=== PATIENT | male | born 1940 | race Caucasian/White ===

== ENCOUNTER 2019-03-28 08:20 | Day surgery (SDC) | payer MEDICARE, BC, SELFPAY ==
--- NOTE | 2019-03-28 07:41 | PM.HP.1 ---
History of Present Illness Date Patient Seen: 03/28/19 Time Patient Seen: 07:42 Chief complaint: [id number] Colonoscopy Narrative: patient is here for a screening colonosopy. His head polyps over time he has had a colonoscopy. Last exam was about 4 years ago. Patient History Medical History Arthritis (Chronic) Diverticular disease (Chronic) Hearing loss (Chronic) Hyperlipidemia (Chronic) Colon polyps (Resolved 2000) History of SCC (squamous cell carcinoma) of skin (Resolved) History of basal cell carcinoma (BCC) (Resolved) Vertigo (Resolved 2006) Surgical History History of basal cell carcinoma (BCC) excision (Resolved) History of colonoscopy with polypectomy (Resolved 10/24/13) History of colonoscopy with polypectomy (Resolved 05/24/07) History of colonoscopy with polypectomy (Resolved 01/24/04) History of squamous cell carcinoma excision (Resolved) Status post amputation of extremity (Resolved) Status post rotator cuff repair (Resolved 2005) Family History (Updated 11/04/18 @ 10:29 by Anne Ornelas) Mother Diabetes mellitus Hypertension Father Heart failure Heart disease Social History household members: spouse Smoking Status: Never smoker alcohol intake: current substance use type: does not use Family & Social History Family History Mother Diabetes mellitus Hypertension Father Heart failure Heart disease Tobacco & Substance use: Smoking Status Never smoker alcohol intake current Meds Home Medications Medication Instructions Recorded Confirmed Type ASPIRIN (Aspir-Low) 162 mg PO QDAY #0 12/22/11 03/28/19 History meclizine 25 mg PO Q6HP PRN #30 tab 01/05/17 03/28/19 Rx simvastatin 20 mg tablet 20 mg PO QPM #90 tab 09/27/18 03/28/19 Rx Allergies Allergy/AdvReac Type Severity Reaction Status Date / Time DUST Allergy Mild Uncoded 03/02/18 12:20 Review of Systems Review of Systems All systems reviewed & are unremarkable except as noted in HPI and below Exam Narrative Exam Narrative: Pleasant cooperative patient no apparent distress. Lungs are clear to auscultation. No rales or rhonchi. Heart regular rate and rhythm no murmur gallop. Abdomen is soft nontender without mass. No obvious hernias. Patient is alert and oriented x3. Assessment & Plan Assessment & Plan narrative: The patient for a screening colonoscopy. I have discussed the procedure with them. Risks of bleeding, perforation which would necessitate major operation, failure to find remove all lesions, the potential tattoo were all discussed. All questions were answered. They wished to proceed.
[2019-03-28 08:41] VITALS: BP 127/75; PULSE 75; RESP 16; TEMP 37; O2SAT 97; BMI 25.9
[2019-03-28] MEDS: SODIUM CHLORIDE 0.9% 1,000 ML 200 ML IV ×2 (09:00→10:56)
--- NOTE | 2019-03-28 10:12 | PM.PREOP ---
Pre-operative Note Interval Note History & Physical reviewed/Exam performed by Physician: Yes Changes to H&P: No ASA Class (for procedural sedation): I
[2019-03-28] MEDS: MIDAZOLAM 5 MG/5 ML VIAL IV (10:21)
[2019-03-28] MEDS: fentaNYL 250 MCG/5 ML INJ IV (10:22)
--- NOTE | 2019-03-28 11:10 | PM.OP.ENDO ---
Operative Date/Time/Diagnoses Date of procedure: 03/28/19 Time of procedure: 11:11 Pre-op diagnosis: Screening exam. Patient has a history of polyps. Last exam 4 years ago. Post-op diagnosis: same (Extensive diverticulosis of the left and right colon. Stricture in the sigmoid at about 25 cm from the anal verge.) Procedure & Clinicians Study performed: Colonoscopy Same procedure as scheduled: Yes Indications: Screening history of polyps Surgeon: Hill Doss Procedure Notes SCOAP/Timeout: Perform Procedure in detail: The patient was placed in the left lateral decubitus position and underwent IV sedation directed by the surgeon consisting of fentanyl and Versed. Digital exam was remarkable for a in enlarged prostate. No nodules were felt. The scope was inserted and advanced through the rectum into the sigmoid, descending, transverse, and ascending colon. Transition through the sigmoid colon was quite difficult due to extensive diverticulosis and some stricture. The patient had to be repositioned and pressure applied in order to make our way through this area.. The cecum was reached identified by the ileocecal valve and the appendiceal opening. The scope was gradually brought out. No Polyps were found. The scope ultimately was retroflexed in the rectum. The appearance was[normal]. The scope was removed and the patient tolerated the procedure well. prep was very good Scope withdrawal time: 19 Sedation minutes: 55 Findings: diverticulosis (Extensive) and other findings (Enlarged prostate without dominant mass) Specimen(s): none sent Complications: none Recommendations: Colonscopy in 5 years (If it good health)
[2019-03-28 11:15] VITALS: BP 98/59; PULSE 96; RESP 11; TEMP 37.1; O2SAT 93
[2019-03-28 11:20] VITALS: BP 103/60; PULSE 99; RESP 15; O2SAT 95
[2019-03-28 11:43] VITALS: BP 103/66; PULSE 86; RESP 16; TEMP 36.5; O2SAT 93
== END 2019-03-28 11:55 | disposition home or self-care (01) ==
PROVIDERS: PCP Student in an Organized Health Care Education/Training Program; Visit Provider Specialist
PROC: 0DJD8ZZ Inspection of Lower Intestinal Tract, Via Natural or Artificial Opening Endoscopic (ICD-10-PCS; CPT 45378; principal; 2019-03-28 09:45)
DX: Z86.010 Personal history of colon polyps (principal); K57.30 Diverticulosis of large intestine without perforation or abscess without bleeding; N40.0 Benign prostatic hyperplasia without lower urinary tract symptoms
CPT/HCPCS: G0105; 99152; 99153; J2250; J3010

== ENCOUNTER 2019-04-17 16:21 | Emergency (ER) | payer MEDICARE, BC, SELFPAY ==
[2019-04-17 16:29] VITALS: BP 127/76; PULSE 69; RESP 16; TEMP 35; O2SAT 94; BMI 25.8
--- NOTE | 2019-04-17 16:47 | DI.RAD.S_ITS ---
PROCEDURE: XR HAND RT MIN 3V INDICATIONS: LACERATION TO PALM TECHNIQUE: 3 views of the hand(s) acquired. COMPARISON: None. FINDINGS: Bones: No fractures or dislocations. Carpal bones are normally aligned. No suspicious bony lesions. Advanced degenerative changes are seen, particularly involving the 1st carpometacarpal joint, and also involving the distal interphalangeal joints. Soft tissues: No suspicious soft tissue calcifications. No radiopaque foreign bodies are seen. IMPRESSION: No radiopaque foreign bodies or acute bony injury can be seen. 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 If there is strong suspicion for developing osteomyelitis, please consider a dedicated MRI with contrast for further evaluation (assuming that there is no contraindication to MRI). Dictated by: Kwabena Love M.D. on 04/17/2019 at 16:20 Approved by: Kwabena Love M.D. on 04/17/2019 at 16:21
[2019-04-17] MEDS: TET,DIPH,PERTUSS(ACELL),VAC/PF 0.5 ML SYRINGE IM (17:01)
--- NOTE | 2019-04-17 18:41 | ED_ITS ---
HPI - Wound/Laceration <HORTENCIA Garcia - Last Filed: 04/17/19 18:44> General Chief Complaint: Wound/Laceration Stated Complaint: cut right hand Time Seen by Provider: 04/17/19 16:40 Source: patient and family Mode of arrival: ambulatory Limitations: no limitations History of Present Illness HPI narrative: The patient is a 78-year-old male with history of hypercholesterolemia who presents with his for chief complaint of a laceration. He states he cut himself on a wiper blender blade and has a cut on his right hand at the base of his thumb.. He is unsure foreign body. He does not know when his last tetanus was. He states he is having a hard time controlling the bleeding. He takes aspirin. The laceration happened at approximately 4:10 p.m.. Related Data Home Medications Medication Instructions Recorded Confirmed ASPIRIN (Aspir-Low) 162 mg PO QDAY #0 12/22/11 03/28/19 Previous Rx's Medication Instructions Recorded meclizine 25 mg PO Q6HP PRN #30 tab 01/05/17 simvastatin 20 mg tablet 20 mg PO QPM #90 tab 09/27/18 Allergies Allergy/AdvReac Type Severity Reaction Status Date / Time No Known Drug Allergies Allergy Verified 04/17/19 16:29 Review of Systems <EDDIE Garcia - Last Filed: 04/17/19 18:44> Review of Systems GENERAL: Denies chills, fatigue, malaise, fever, sweats. HEENT: Denies sinus pain, ear pain, sore throat, difficulty swallowing, dizziness. RESPIRATORY: Denies dyspnea, cough, wheezing, hemoptysis, sputum. CARDIOVASCULAR: Denies chest pain, palpitations, orthopnea, edema, GASTROINTESTINAL: Denies nausea, vomiting, abdominal pain, diarrhea, constipation, melena. : Denies dysuria, frequency, incontinence, hematuria, urinary retention. MUSCULOSKELETAL: denies weakness, joint pain, or bony pain SKIN: See HPI NEUROLOGIC: Denies weakness, headache, numbness, change in speech, confusion, seizures, incoordination. PSYCHIATRIC: No concerning psychosocial issues. 12 point review of systems is negative except for those stated above PFSH <EDDIE Garcia - Last Filed: 04/17/19 18:44> Medical History Arthritis (Chronic) Diverticular disease (Chronic) Hearing loss (Chronic) Hyperlipidemia (Chronic) Colon polyps (Resolved 2000) History of SCC (squamous cell carcinoma) of skin (Resolved) History of basal cell carcinoma (BCC) (Resolved) Vertigo (Resolved 2006) Surgical History History of basal cell carcinoma (BCC) excision (Resolved) History of colonoscopy with polypectomy (Resolved 10/24/13) History of colonoscopy with polypectomy (Resolved 05/24/07) History of colonoscopy with polypectomy (Resolved 01/24/04) History of squamous cell carcinoma excision (Resolved) Status post amputation of extremity (Resolved) Status post rotator cuff repair (Resolved 2005) Family History Mother Diabetes mellitus Hypertension Father Heart failure Heart disease Social History household members: spouse Smoking Status: Never smoker alcohol intake: current substance use type: does not use Family History Mother Diabetes mellitus Hypertension Father Heart failure Heart disease Social History household members: spouse Smoking Status: Never smoker alcohol intake: current substance use type: does not use Exam <HORTENCIA Garcia - Last Filed: 04/17/19 18:44> Narrative Exam Narrative: GENERAL: This is a well-nourished, well-developed patient, no acute distress. HEAD: Atraumatic. Normocephalic. No temporal or scalp tenderness. EYES: Pupils equal round and reactive. Extraocular motions intact. No scleral icterus. No injection or drainage. ENT: Nose without bleeding, purulent drainage or septal hematoma. Throat without erythema, tonsillar hypertrophy or exudate. Uvula midline. Airway patent. NECK: Trachea midline. No JVD or lymphadenopathy. Supple, nontender, no meningeal signs. CARDIOVASCULAR: Regular rate and rhythm RESPIRATORY: No cough. No increased respiratory effort. No accessory muscle use. EXTREMITIES: Patient is able to flex and extend right thumb against resistance. Capillary refill less than 2 seconds. NEURO: AOx3. SKin: 4 cm laceration noted at the base of right thumb. No obvious tendon or muscle involvement. No obvious foreign body. Through dermis. Laceration is jagged Initial Vital Signs Initial Vital Signs: Vital Signs Temperature 95 F L 04/17/19 16:29 Pulse Rate 69 04/17/19 16:29 Respiratory Rate 16 04/17/19 16:29 Blood Pressure 127/76 04/17/19 16:29 Pulse Oximetry 94 04/17/19 16:29 <Kaya Kwong DO - Last Filed: 04/17/19 19:39> Initial Vital Signs Initial Vital Signs: Vital Signs Temperature 95 F L 04/17/19 16:29 Pulse Rate 69 04/17/19 16:29 Respiratory Rate 16 04/17/19 16:29 Blood Pressure 127/76 04/17/19 16:29 Pulse Oximetry 94 04/17/19 16:29 Procedures <HORTENCIA Garcia - Last Filed: 04/17/19 18:44> Laceration Repair Laceration 1: Site: hand Side (If applicable): right Size (cm): 4 Description: irregular Depth: simple, single layer Local Anesthetic: lidocaine 1% Amount of anesthesia used (mL): 3 Pre-repair: wound explored, irrigated extensively and deep structures intact Skin layer closed with: nylon Size (cm): 4-0 Number of sutures: 6 Technique: simple, interrupted Course <HORTENCIA Garcia - Last Filed: 04/17/19 18:44> Orders Ordered: ED Orders 04/17/19 16:47 XR hand RT min 3V Stat Discontinued Medications Diphtheria/Tetanus/Acell Pertussis (Adacel) 0.5 ml IM .ONCE ONE Stop: 04/17/19 16:48 Last Admin: 04/17/19 17:01 Dose: 0.5 ml Vital Signs - 8 hr 04/17/19 16:29 Temperature 95 F L Pulse Rate 69 Respiratory Rate 16 Blood Pressure 127/76 Pulse Oximetry 94 <Kaya Kwong DO - Last Filed: 04/17/19 19:39> Orders Ordered: ED Orders 04/17/19 16:47 XR hand RT min 3V Stat Discontinued Medications Diphtheria/Tetanus/Acell Pertussis (Adacel) 0.5 ml IM .ONCE ONE Stop: 04/17/19 16:48 Last Admin: 04/17/19 17:01 Dose: 0.5 ml Vital Signs - 8 hr 04/17/19 16:29 Temperature 95 F L Pulse Rate 69 Respiratory Rate 16 Blood Pressure 127/76 Pulse Oximetry 94 MDM - Wound/Laceration <Kaya CONCEPCIÓN Gill-BC - Last Filed: 04/17/19 18:44> [facility] Narrative Medical decision making narrative: The patient is a 78-year-old male who presents with his for chief complaint of laceration. He has a negative x- ray. His tetanus was updated. He tolerated suture closure well. Discussed at length monitoring for signs and symptoms of infection including redness pus etc. Encouraged follow-up with PCP. Discussed at length follow up for suture removal in 7-10 days. No questions or concerns upon discharge. Patient states understanding of return precautions of acute concerns. Discharge Plan Departure Patient Disposition: Home Clinical Impression: Laceration Discharge Date/Time: 04/17/19 18:55 Interventions: ED Discharge Assessment Last Done: 04/17/19 18:55 Instructions: DI for Laceration Repair, DI for Suture Removal Activity Restrictions/Additional Instructions: Please follow up for suture removal in 7-10 days Please monitor for signs of infection including redness pus etc Please follow-up if you notice any signs of infection. Come back to the emergency department for acute concerns. Please enjoy your son's a bachelor libertarian and wedding Prescriptions: No Action simvastatin 20 mg tablet 20 mg PO QPM Qty: 90 RF: 3 ASPIRIN (Aspir-Low) 162 mg PO QDAY Qty: 0 RF: 0 meclizine 25 MG tablet 25 mg PO Q6HP PRNQty: 30 RF: 1 Referrals: Tomi Pathak MD [Primary Care Provider] - <Kaya Kwong DO - Last Filed: 04/17/19 19:39> Cosign ED Attending Cosignature Attestation: I was immediately available in the department for consultation. This documentation has been reviewed and I agree with assessment and plan. Supervised by Kaya Kwong DO
== END 2019-04-17 18:55 | disposition home or self-care (01) ==
PROVIDERS: Emergency Provider Nurse Practitioner Family; PCP Student in an Organized Health Care Education/Training Program
DX: S61.411A Laceration without foreign body of right hand, initial encounter (principal); Z23 Encounter for immunization
CPT/HCPCS: 12002; 73130; 90471; 99283; 90715

== ENCOUNTER 2020-01-02 08:11 | Inpatient (IN) | payer MEDICARE, BC, SELFPAY ==
[2020-01-02] VITALS (7 sets, daily range): BP systolic 113–135; BP diastolic 66–76; PULSE 64–84; RESP 16–28; TEMP 36.6–37.5; O2SAT 94–97; BMI 26.8
--- NOTE | 2020-01-02 08:12 | DI.CT.S_ITS ---
PROCEDURE: CT STROKE COMPARISON: None. INDICATIONS: code stroke TECHNIQUE: Noncontrast 4.5 mm thick angled axial sections acquired from the foramen magnum to the vertex, with coronal and sagittal reformats. For radiation dose reduction, the following was used: automated exposure control, adjustment of mA and/or kV according to patient size. FINDINGS: Image quality: Excellent. CSF spaces: Basal cisterns are patent. No extra-axial fluid collections. The ventricles are symmetric in size and shape. Brain: No intracranial bleeds or masses. There is cerebral volume loss for age, with resultant ventricular and sulcal prominence. There are periventricular and deep white matter chronic small vessel ischemic changes. There is minimal intracranial internal carotid artery atherosclerosis. Skull and face: Calvarium and visualized facial bones appear intact, without suspicious lesions. Sinuses: Visualized sinuses and mastoids are clear. IMPRESSION: CT head without acute intracranial abnormalities. Age-related senescent changes and sequela of chronic small vessel ischemic disease. Findings were discussed with Dr. Desai of the emergency department staff at 0827 hrs. Dictated by: Pramod Carvajal M.D. on 01/02/2020 at 8:35 Approved by: Pramod Carvajal M.D. on 01/02/2020 at 8:36
[2020-01-02 08:30] LABS: Add Manual Diff / Slide Review NO; Basophils Absolute Auto 100 /uL (0-100); Basophils Percent Auto 0.8 % (0-2); Eosinophils Absolute Auto 300 /uL (0-450); Eosinophils Percent Auto 2.9 % (2-4); Hematocrit 47.9 % (41-53); Hemoglobin 16.1 g/dL (13.5-17.5); Lymphocytes Absolute Auto 3600 /uL (1100-4500); Lymphocytes Percent Auto 39.2 % (25-40); Mean Corpuscular HGB Conc 33.6 % (30-36); Mean Corpuscular Hemoglobin 31.1 PG (26-34); Mean Corpuscular Volume 92.8 fL (80-100); Monocytes Absolute Auto 700 /uL (0-900); Monocytes Percent Auto 7.5 % (3-14); Neutrophils Absolute Auto 4500 /uL (1500-7000); Neutrophils Percent Auto 49.6 % (50-75); Platelet Count 217 X10^3/uL (150-400); Red Blood Cell Count 5.16 X10^6/uL (4.5-5.9); Red Cell Distribution Width 14.1 % (11.6-14.8); White Blood Cell Count 9.2 X10^3/uL (4.5-11.0)
--- NOTE | 2020-01-02 08:38 | ED.NEUROSD ---
HPI - Neuro Symptoms/Deficit General Chief Complaint: Neuro Symptoms/Deficit Stated Complaint: Stroke Time Seen by Provider: 01/02/20 08:12 Source: patient and EMS Mode of arrival: EMS Limitations: no limitations History of Present Illness HPI Narrative: Patient is a 79-year-old male. History of high cholesterol. Has never had a stroke. Elias heart attack. Not on anticoagulation. Arrived as a code stroke. EMS reports that they were called by the patient's . Patient states that he woke up approximately 650 this morning. States that he went to the restroom when he came back to bed he felt like he needed to lay down. He then got up out of bed at 0730. He went to walk out of the living room and felt like he could not walk well. He states that he was dizzy. He does have a history of vertigo we states this was different than his vertigo. He also felt like his left arm was weak. He was unsure about weakness in his lower extremities but does admit that he had quite a bit of balance issues. His was at bedside stated that she did not think that he had any speech issues. She had a different story about him waking up this morning. She stated that he did not make it to the bathroom. She stated that she had to help him back onto the bed because he was dizzy. EMS in route stated that patient's symptoms seemed to be improving. He stated that he had resolved in his symptoms shortly before arrival here in the emergency department. Blood sugar greater than 100. Patient never had any symptoms like this in the past. On Anticoagulants: No Related Data Previous Rx's Medication Instructions Recorded meclizine 25 mg PO Q6HP PRN #30 tab 01/05/17 simvastatin 20 mg tablet 20 mg PO QPM #90 tab 12/22/19 Allergies Allergy/AdvReac Type Severity Reaction Status Date / Time No Known Drug Allergies Allergy Verified 10/26/19 13:09 Review of Systems Constitutional Constitutional: Denies fever(s) and Denies headache(s) Eyes Eyes: Denies change in vision and Denies diplopia ENT Ears, Nose, Mouth, and Throat: Denies vertigo, Reports dizziness, Denies headache(s), Reports disequilibrium and Denies sore throat Cardiovascular Cardiovascular: Denies chest pain, Denies syncope, Denies edema, Denies leg edema and Denies dyspnea Respiratory Respiratory: Denies cough and Denies dyspnea Gastrointestinal Gastrointestinal: Denies abdominal pain, Denies diarrhea, Denies nausea and Denies vomiting Genitourinary Genitourinary: Denies dysuria Musculoskeletal Musculoskeletal: Reports abnormal gait, Denies myalgias, Denies arthralgias, Reports muscle weakness and Denies numbness Integumentary/Breasts Skin/Breast: Denies lesions and Denies rash Neurologic Neurologic: Denies abnormal movements, Denies abnormal speech, Reports abnormal gait, Denies behavioral changes, Denies vertigo, Reports dizziness, Denies syncope, Denies headache(s), Reports focal weakness, Denies numbness, Denies radicular pain and Reports disequilibrium Psychiatric Psychiatric: Denies behavioral changes Hematologic/Lymphatic Hematologic/Lymphatic: Denies easy bleeding and Denies easy bruising Patient History Medical History Arthritis (Chronic) Colon polyps (Resolved 2000) Diverticular disease (Chronic) Hearing loss (Chronic) History of basal cell carcinoma (BCC) (Resolved) History of SCC (squamous cell carcinoma) of skin (Resolved) Hyperlipidemia (Chronic) Vertigo (Resolved 2006) Social History household members: spouse Smoking Status: Never smoker alcohol intake: current substance use type: does not use Smoking Status: Never smoker alcohol intake frequency: holidays/special occasions only Substance Use Type: does not use Exam Initial Vital Signs Initial Vital Signs: Vital Signs Temperature 98.8 F 01/02/20 08:15 Pulse Rate 84 01/02/20 08:15 Respiratory Rate 28 H 01/02/20 08:15 Blood Pressure 135/72 01/02/20 08:15 Pulse Oximetry 94 01/02/20 08:15 Const General: cooperative, comfortable and well developed Limitations: mental status not altered HENMT Head: normal to inspection and normocephalic Eyes Pupils: PERRL EOM: EOM intact bilaterally Resp Effort & Inspection: normal respiratory effort Auscultation: clear to auscultation bilaterally Cardio Rate: regular rate Rhythm: regular rhythm GI Inspection: non-distended Palpation: soft Skin Lesions: no lesions Rashes: no rashes Neuro General: alert, awake and oriented x3 Cranial Nerves: CN's II-XI intact bilaterally Cognition: normal cognition Speech: speech normal Motor: muscle tone normal throughout Sensory Exam: no sensory deficits noted Coordination: [id number] test normal Extrem General: normal to inspection, capillary refill normal and No edema Psych Appearance: grossly normal and well kempt Scores GCS Guthrie coma scale eye opening: Spontaneous Carleen coma scale verbal response: Orientated [place] coma scale motor response: Obey commands Carleen coma scale total score: 15 NIH Stroke Scale Level of Conciousness: Alert, keenly responsive Ask month/age: Answers both questions correctly. Open/close eyes, close hand: Performs both tasks correctly Best gaze horizontal: Normal Visual burciaga: No visual loss Facial palsy: Normal symetrical movement Left arm drift: No drift for full 10 sec Right arm drift: No drift for full 10 sec Left leg drift: No drift for full 10 sec Right leg drift: No drift for full 10 sec Limb ataxia: Absent Sensory on face/arms/legs: Normal, no sensory loss Best language: No aphasia, normal Dysarthria: Normal Extinction or inattention: No abnormality Total NIH Stroke scale score: 0 Course Orders Ordered: ED Orders 01/02/20 08:12 CT Stroke Stat 01/02/20 08:14 Urine Drug Screen, Rapid Stat EKG-12 Lead Stat 01/02/20 08:20 Ammonia (NH3) Stat Complete Blood Count AUTO DIFF Stat Comprehensive Metabolic Panel Stat Ethanol (ETOH) Stat Lipase Stat Partial Thromboplastin Time Stat Prothrombin Time INR Stat Troponin I Stat Sodium Chloride (Normal Saline 0.9%) 1,000 mls @ 125 mls/hr IV CONT WENDY Discontinued Medications Aspirin (Aspirin) 325 mg PO NOW ONE Stop: 01/02/20 08:39 Vital Signs Vital signs: Vital Signs - 8 hr 01/02/20 08:15 01/02/20 08:25 01/02/20 09:12 Temperature 98.8 F 98.8 F Pulse Rate 84 84 64 Respiratory Rate 28 H 28 H 20 Blood Pressure 135/72 Blood Pressure [Left Wrist] 132/72 113/66 Pulse Oximetry 94 94 94 MDM - Neuro Symptoms/Deficit Lab Data Attestation: I reviewed the patient's lab results. Result diagrams: 01/02/20 08:20 01/02/20 08:20 Labs: Lab Results 01/02/20 01/02/20 01/02/20 Range/Units 08:20 08:20 08:20 WBC 9.2 (4.5-11.0) X10^3/uL RBC 5.16 (4.5-5.9) X10^6/uL Hgb 16.1 (13.5-17.5) g/dL Hct 47.9 (41-53) % MCV 92.8 (80-100) fL MCH 31.1 (26-34) PG MCHC 33.6 (30-36) % RDW 14.1 (11.6-14.8) % Plt Count 217 (150-400) X10^3/uL Neut % (Auto) 49.6 L (50-75) % Lymph % (Auto) 39.2 (25-40) % [place] % (Auto) 7.5 (3-14) % Eos % (Auto) 2.9 (2-4) % Baso % (Auto) 0.8 (0-2) % Neut # (Auto) 4500 (6710-5660) /uL Lymph # (Auto) 3600 (8487-7354) /uL [place] # (Auto) 700 (0-900) /uL Eos # (Auto) 300 (0-450) /uL Baso # (Auto) 100 (0-100) /uL PT 11.7 (10.1-12.7) SECONDS INR 1.0 (0.9-1.3) APTT 29 (26.4-36.2) SECONDS Sodium 142 (137-145) mmol/L Potassium 4.5 (3.4-5.1) mmol/L Chloride 110 H (98-107) mmol/L Carbon Dioxide 21 L (22-32) mmol/L BUN 21 H (9-20) mg/dL Creatinine 1.10 (0.66-1.25) mg/dL Estimated GFR > 60.0 (>60) mL/min BUN/Creatinine Ratio 19.1 (6-22) Glucose 113 H (80-110) mg/dL Calcium 9.8 (8.4-10.2) mg/dL Total Bilirubin 0.9 (0.2-1.3) mg/dL AST 40 (17-59) IU/L ALT 34 (<50) IU/L Alkaline Phosphatase 62 (38-126) U/L Ammonia (9-30) umol/L Troponin I < 0.012 (0.01-0.034) ng/mL Total Protein 7.6 (6.3-8.2) g/dL Albumin 4.4 (3.5-5.0) g/dL Globulin 3.2 (1.7-4.1) g/dL Albumin/Globulin Ratio 1.4 (1.0-2.8) Lipase 336 H (23-300) U/L Ethyl Alcohol < 10 ( - 10) mg/dL 01/02/20 Range/Units 08:20 WBC (4.5-11.0) X10^3/uL RBC (4.5-5.9) X10^6/uL Hgb (13.5-17.5) g/dL Hct (41-53) % MCV (80-100) fL MCH (26-34) PG MCHC (30-36) % RDW (11.6-14.8) % Plt Count (150-400) X10^3/uL Neut % (Auto) (50-75) % Lymph % (Auto) (25-40) % [place] % (Auto) (3-14) % Eos % (Auto) (2-4) % Baso % (Auto) (0-2) % Neut # (Auto) (3181-5869) /uL Lymph # (Auto) (0508-6821) /uL [place] # (Auto) (0-900) /uL Eos # (Auto) (0-450) /uL Baso # (Auto) (0-100) /uL PT (10.1-12.7) SECONDS INR (0.9-1.3) APTT (26.4-36.2) SECONDS Sodium (137-145) mmol/L Potassium (3.4-5.1) mmol/L Chloride (98-107) mmol/L Carbon Dioxide (22-32) mmol/L BUN (9-20) mg/dL Creatinine (0.66-1.25) mg/dL Estimated GFR (>60) mL/min BUN/Creatinine Ratio (6-22) Glucose (80-110) mg/dL Calcium (8.4-10.2) mg/dL Total Bilirubin (0.2-1.3) mg/dL AST (17-59) IU/L ALT (<50) IU/L Alkaline Phosphatase (38-126) U/L Ammonia < 9 L (9-30) umol/L Troponin I (0.01-0.034) ng/mL Total Protein (6.3-8.2) g/dL Albumin (3.5-5.0) g/dL Globulin (1.7-4.1) g/dL Albumin/Globulin Ratio (1.0-2.8) Lipase (23-300) U/L Ethyl Alcohol ( - 10) mg/dL Point of Care Testing Glucose POC [address] scan - head: Radiologist's Impression: No acute stroke ECG Data Attestation: I personally reviewed and interpreted this ECG as follows: Prior ECG tracings: not available for review Interpretation: Sinus rhythm Ventricular rate 81 First degree AV block IN interval 286 Left axis deviation Left bundle branch block Normal QTC MDM Narrative Medical decision making narrative: Patient resolved of symptoms prior to arrival here in the ER. His head CT was unremarkable. Labs unremarkable. Patient states this does feel different than his vertigo issues. Has NIH score of 0. Do feel that this is most consistent with a TIA. Patient was given an aspirin. Will admit to the hospital. Discussed with Dr. deluca the hospitalist who will accept the patient. Discussed this with the patient who expressed understanding and agreement. Discharge Plan Departure Patient Disposition: Admitted as Observation Clinical Impression: TIA (transient ischemic attack) Admit Date/Time: 01/02/20 09:13 Admit Provider: Dee Deluca
[2020-01-02 08:40] LABS: Prothrombin Time 11.7 SECONDS (10.1-12.7)
[2020-01-02 08:42] LABS: PTT Partial Thromboplastin Tim 29 SECONDS (26.4-36.2)
[2020-01-02 08:44] LABS: Ammonia (NH3) < 9 umol/L (9-30)
[2020-01-02 08:45] LABS: Alanine Aminotransferase 34 IU/L (<50); Albumin 4.4 g/dL (3.5-5.0); Albumin Globulin Ratio 1.4 (1.0-2.8); Alkaline Phosphatase 62 U/L (38-126); Aspartate Aminotransferase 40 IU/L (17-59); BUN Creatinine Ratio 19.1 (6-22); Bilirubin Total 0.9 mg/dL (0.2-1.3); Blood Urea Nitrogen 21 mg/dL (9-20); Calcium 9.8 mg/dL (8.4-10.2); Carbon Dioxide 21 mmol/L (22-32); Chloride 110 mmol/L (98-107); Estimated Glomerular Filt Rate > 60.0 mL/min (>60); Ethanol (ETOH) < 10 mg/dL; Globulin 3.2 g/dL (1.7-4.1); Glucose 113 mg/dL (80-110); HEMOLYSIS < 15 (0-50); Lipase 336 U/L (23-300); Potassium 4.5 mmol/L (3.4-5.1); Sodium 142 mmol/L (137-145); Total Protein 7.6 g/dL (6.3-8.2)
[2020-01-02 08:55] LABS: Troponin I < 0.012 ng/mL (0.01-0.034)
[2020-01-02] MEDS: SODIUM CHLORIDE 0.9% 1,000 ML 125 ML IV (09:19)
[2020-01-02] MEDS: ASPIRIN 325 MG TABLET PO (09:19)
[2020-01-02 11:06] LABS: UR Morphine/Opiate cutoff 300 Negative (Negative); Ur Creatinine Normal (Normal); Ur Specific Gravity Normal (Normal); Urine Amphetamines Negative (Negative); Urine Barbiturates Negative (Negative); Urine Benzodiazepines Negative (Negative); Urine Cocaine Negative (Negative); Urine MDMA Negative (Negative); Urine Methadone Negative (Negative); Urine Methamphetamines Negative (Negative); Urine Oxycodone Negative (Negative); Urine Phencyclidine Negative (Negative); Urine Tetrahydrocannabinol Negative (Negative); Urine Tricyclic Antidepressant Negative (Negative); Urine pH Normal (Normal)
--- NOTE | 2020-01-02 12:05 | PC.NURSE ---
Addendum entered by Sonja Blanco R.N. 01/02/20 14:41: Off floor to MRI at this time, taken via wheelchair. Original Note: Patient to room 1130, alert oriented, denies pain, nausea. NIH 0, oriented to room call light.
--- NOTE | 2020-01-02 12:52 | DI.MRI.S_ITS ---
PROCEDURE: MR HEAD/BRAIN WO CON INDICATIONS: Left arm weakness. r/o CVA TECHNIQUE: Non-contrast axial T1 spin echo, axial T2 fast spin echo, sagittal and axial FLAIR, coronal T2 fast spin echo, axial gradient echo, axial diffusion and ADC through the brain. COMPARISON: CT head 01/02/2020 and MRI brain 01/14/17. FINDINGS: Image quality: Excellent. CSF spaces: Ventricles appear symmetric in size and shape. Basal cisterns are patent. No extra-axial fluid collections. Brain: No intracranial bleeds or mass effects. There is mild cerebral volume loss for age. There are mild periventricular and deep white matter chronic small vessel ischemic changes. Brainstem appears normal. Focus of restricted diffusion noted in the right cope radiata compatible with acute lacunar infarct. No chronic ischemic insults. Normal intravascular flow voids are present. Skull and face: Calvarial bone marrow is normal in signal. Orbits are normal. Sinuses: Small mucous retention cysts noted in the maxillary sinuses bilaterally. The mastoids are clear. IMPRESSION: 1. 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 2. No intracranial hemorrhage. 3. Mild diffuse cerebral volume loss. 4. Mild periventricular and subcortical white matter chronic microvascular ischemic change. Dictated by: Amina Newsome MD, PhD on 01/02/2020 at 15:27 Approved by: Amina Newsome MD, PhD on 01/02/2020 at 15:35
--- NOTE | 2020-01-02 12:54 | DI.MRI.S_ITS ---
PROCEDURE: MR ANGIO NECK W CON INDICATIONS: r/o carotid stenosis TECHNIQUE: Axial and sagittal TruFISP through the neck. Coronal dynamic MRA after the administration of contrast in the arterial and venous phases, with rotating 3-dimensional maximum intensity projection (MIP) reformats constructed from subtraction images. COMPARISON: None. FINDINGS: Image quality: Excellent. Carotid system: Great vessels demonstrate a conventional anatomy as they arise from the aortic arch. The origins of the common carotid arteries appear normal. The calibers and courses of the common carotid arteries are likewise normal. The carotid bifurcations appear normal bilaterally. The internal carotid arteries are widely patent up to the [place]. Posterior circulation: The origins of the vertebral arteries are unremarkable. The more superior portions of the vertebral arteries demonstrate normal course and caliber. Vertebral arteries join to form a normal appearing basilar artery. Miscellaneous: Subclavian arteries are patent throughout. Pre-contrast images through the neck demonstrate no soft tissue abnormalities. IMPRESSION: Normal examination without evidence of vascular occlusion, vascular dissection or aneurysm. Any quantitative measurements of stenosis were performed using NASCET criteria. Dictated by: Amina Newsome MD, PhD on 01/02/2020 at 15:38 Approved by: Amina Newsome MD, PhD on 01/02/2020 at 15:40
--- NOTE | 2020-01-02 12:54 | PM.HP.1 ---
History of Present Illness History of Present Illness Date Patient Seen: 01/02/20 Chief complaint: Stroke Narrative: The patient is a 79-year-old male with a history of hyperlipidemia, vertigo, diverticular disease, and arthritis who was in his usual state of health until this morning when the patient got up out of bed to go to the restroom he noted that he was unable to use his left hand and was unsteady on his feet. The patient does have a history of vertigo. He reports the sensation of spinning. However today his symptoms were different. As he got out of bed he was unable to walk without holding onto the cook. When he attempted to put his socks on he could not use his left hand. He describes having numbness in the left hand. He also reports weakness of the left hand. He had no facial droop, no speech disturbance, no headache, no blurred vision, no change in vision, no spots or floaters. The patient and his called 911. By the time EMS had arrived the patient's strength in the left hand was improving. He was brought into the emergency room and evaluated. Head CT was obtained in the ER which was negative. He had an NIH score of 0. Patient was admitted to the hospital for evaluation of probable TIA. Patient denies any prior history of stroke, no history of TIAs, no weakness or numbness. He denies any chest pain shortness of breath or palpitations. He has no history of atrial fibrillation. Patient History Medical History Arthritis (Chronic) Colon polyps (Resolved 2000) Diverticular disease (Chronic) Hearing loss (Chronic) History of basal cell carcinoma (BCC) (Resolved) History of SCC (squamous cell carcinoma) of skin (Resolved) Hyperlipidemia (Chronic) Vertigo (Resolved 2006) Surgical History History of basal cell carcinoma (BCC) excision (Resolved) History of colonoscopy with polypectomy (Resolved 10/24/13) History of colonoscopy with polypectomy (Resolved 05/24/07) History of colonoscopy with polypectomy (Resolved 01/24/04) History of squamous cell carcinoma excision (Resolved) Status post amputation of extremity (Resolved) Status post rotator cuff repair (Resolved 2005) Family & Social History Family History Mother Diabetes mellitus Hypertension Father Heart failure Heart disease Social History: household members spouse Prior Living Arrangements House Safety & Behavioral: Feels Safe in Current Yes Environment Suicidal Ideation Description None Suicide Plan Description No Plan Tobacco & Substance use: Smoking Status Never smoker alcohol intake current alcohol intake frequency holiday/special occasion Substance Use Type does not use Meds Home Medications and Allergies Home Medications Medication Instructions Recorded Confirmed Type simvastatin 20 mg tablet 20 mg PO QPM #90 tab 12/22/19 01/02/20 Rx CoQ-10 1 cap PO DAILY 01/02/20 01/02/20 History Vitamin B-12 1 tab PO DAILY 01/02/20 01/02/20 History Vitamin B3 1 tab PO DAILY 01/02/20 01/02/20 History Vitamin D3 1 cap PO DAILY 01/02/20 01/02/20 History ascorbic acid (vitamin C) [Vitamin 500 mg PO DAILY 01/02/20 01/02/20 History C] meclizine 25 mg PO Q6HP PRN 01/02/20 01/02/20 History multivitamin 1 tab PO DAILY 01/02/20 01/02/20 History Allergies Allergy/AdvReac Type Severity Reaction Status Date / Time No Known Drug Allergies Allergy Verified 10/26/19 13:09 Review of Systems Review of Systems ROS: Yes All systems reviewed with the patient and are negative except as otherwise documented Exam Vital Signs (past 8 hours): - 01/02/20 08:15 01/02/20 08:25 01/02/20 09:12 Temperature 98.8 F 98.8 F Pulse Rate 84 84 64 Respiratory Rate 28 H 28 H 20 Blood Pressure 135/72 Blood Pressure [Left Wrist] 132/72 113/66 Pulse Oximetry 94 94 94 01/02/20 11:12 Temperature 99.5 F Pulse Rate 72 Respiratory Rate 16 Blood Pressure 120/69 Blood Pressure [Left Wrist] Pulse Oximetry 96 Oxygen Delivery Method Room Air Oxygen Flow Rate 0 Narrative Exam Narrative: Pleasant gentleman resting comfortably in no obvious distress HEENT: Normocephalic atraumatic, extraocular muscles are intact, visual burciaga are normal to confrontation, no facial droop, tongue is midline, neck is supple without adenopathy or thyromegaly Lungs: Clear to auscultation Cardiac exam: Regular rate and rhythm normal S1-S2 with a 2/6 systolic ejection murmur Abdomen: Soft nontender nondistended without hepatosplenomegaly Extremities: No edema Neuro exam: Cranial nerves 2-12 are intact, strength is symmetric and equal, sensation is grossly intact, reflexes are brisk and equal, patient has some dysmetria on the left upper extremity Objective Labs Result Diagrams: 01/02/20 08:20 01/02/20 08:20 Labs: Laboratory Results - last 24 hr 01/02/20 01/02/20 01/02/20 08:20 08:20 08:20 WBC 9.2 RBC 5.16 Hgb 16.1 Hct 47.9 MCV 92.8 MCH 31.1 MCHC 33.6 RDW 14.1 Plt Count 217 Neut % (Auto) 49.6 L Lymph % (Auto) 39.2 Island % (Auto) 7.5 Eos % (Auto) 2.9 Baso % (Auto) 0.8 Neut # (Auto) 4500 Lymph # (Auto) 3600 Island # (Auto) 700 Eos # (Auto) 300 Baso # (Auto) 100 PT 11.7 INR 1.0 APTT 29 Sodium 142 Potassium 4.5 Chloride 110 H Carbon Dioxide 21 L BUN 21 H Creatinine 1.10 Estimated GFR > 60.0 BUN/Creatinine Ratio 19.1 Glucose 113 H Calcium 9.8 Total Bilirubin 0.9 AST 40 ALT 34 Alkaline Phosphatase 62 Ammonia Troponin I < 0.012 Total Protein 7.6 Albumin 4.4 Globulin 3.2 Albumin/Globulin Ratio 1.4 Lipase 336 H U Opiates 300ng/mL cut Ur Oxycodone Screen Urine Methadone Screen Ur Barbiturates Screen U Tricyclic Antidepress Ur Phencyclidine Scrn Ur Amphetamines Screen U Methamphetamines Scrn Ur MDMA Scrn (Ecstasy) U Benzodiazepines Scrn Urine Cocaine Screen U Marijuana (THC) Screen Ethyl Alcohol < 10 01/02/20 01/02/20 08:20 10:40 WBC RBC Hgb Hct MCV MCH MCHC RDW Plt Count Neut % (Auto) Lymph % (Auto) Island % (Auto) Eos % (Auto) Baso % (Auto) Neut # (Auto) Lymph # (Auto) Island # (Auto) Eos # (Auto) Baso # (Auto) PT INR APTT Sodium Potassium Chloride Carbon Dioxide BUN Creatinine Estimated GFR BUN/Creatinine Ratio Glucose Calcium Total Bilirubin AST ALT Alkaline Phosphatase Ammonia < 9 L Troponin I Total Protein Albumin Globulin Albumin/Globulin Ratio Lipase U Opiates 300ng/mL cut Negative Ur Oxycodone Screen Negative Urine Methadone Screen Negative Ur Barbiturates Screen Negative U Tricyclic Antidepress Negative Ur Phencyclidine Scrn Negative Ur Amphetamines Screen Negative U Methamphetamines Scrn Negative Ur MDMA Scrn (Ecstasy) Negative U Benzodiazepines Scrn Negative Urine Cocaine Screen Negative U Marijuana (THC) Screen Negative Ethyl Alcohol Assessment & Plan Assessment & Plan narrative: 1. 79-year-old male admitted with abrupt onset left arm weakness, numbness, left leg weakness, gait disturbance -symptoms highly suggestive of a TIA -initial head CT is noted -patient does have risk factors to include age and hyperlipidemia -will obtain cardiac echo, continue telemetry, MRI of the brain to rule out stroke, MRI of the neck to rule out carotid stenosis -continue aspirin -check lipid profile -PT OT evaluation 2. Hyperlipidemia -await lipid profile 3. Vertigo -continue meclizine as needed 4. DVT prophylaxis Lovenox If follow the above is negative consider outpatient cardiac monitoring Patient is a full code will note that her record accordingly Patient is here under observation status Quality VTE Deep Vein Thrombosis/Pulmonary Embolism Present on Admission: No
[2020-01-02] MEDS: DEXTROSE 5%-0.45% NS 1,000 ML 100 ML IV (13:49)
[2020-01-02 14:35] LABS: Cholesterol 192 mg/dL (140-199); HDL Cholesterol 44 mg/dL (40-60); LDL Cholesterol Calculated 120 mg/dL (<100); Triglycerides 140 mg/dL (35-150)
--- NOTE | 2020-01-02 14:41 | OT.IPNOTE ---
Attempted to do OT eval with pt,however ,pt having to get an MRI, therefore to see pt tomorrow for OT eval.
--- NOTE | 2020-01-02 15:54 | PT.IIE ---
Surgical History (Last Reviewed 01/02/20 @ 13:07 by Dee Deluca MD) History of basal cell carcinoma (BCC) excision (Resolved) History of colonoscopy with polypectomy (Resolved 10/24/13) History of colonoscopy with polypectomy (Resolved 05/24/07) History of colonoscopy with polypectomy (Resolved 01/24/04) History of squamous cell carcinoma excision (Resolved) Status post amputation of extremity (Resolved) Status post rotator cuff repair (Resolved 2005) Medical History (Last Reviewed 01/02/20 @ 13:06 by Dee Deluca MD) Arthritis (Chronic) Colon polyps (Resolved 2000) Diverticular disease (Chronic) Hearing loss (Chronic) History of basal cell carcinoma (BCC) (Resolved) History of SCC (squamous cell carcinoma) of skin (Resolved) Hyperlipidemia (Chronic) Vertigo (Resolved 2006) Physical Therapy Inpatient Evaluation/Re-Eval M1 PT/OT-IP Prior Functional Status Start: 01/02/20 16:45 Freq: NEEDED Status: Active Protocol: Document 01/02/20 15:54 AB (Rec: 01/02/20 17:02 AB [id number]) Medical Review Prior Functional Status Medical History Reviewed Yes Communication able to make needs known Mobility and Gait pt stated that he is independent with all mobilities and ambulation without AD Social History Household Members spouse Living Arrangements House Number of Floors (Floors) Two Floors Number of Stairs To Enter/Railing? 5 steps to enter from the front without rails but has L rail for last 2-3 steps has not steps to get in from the garage. Home Environment High Toilet,Walk in Shower Home Equipment Front Wheel Walker,Straight Cane,Manual Wheelchair Employment Status Retired M2 PT-IP Current Condition Start: 01/02/20 16:45 Freq: NEEDED Status: Active Protocol: Document 01/02/20 15:54 AB (Rec: 01/02/20 17:02 AB [id number]) Physical Therapy Current Condition Current Condition Evaluation Date 01/02/20 Treatment Diagnosis TIA; difficulty in walking Onset Date 01/02/2020 Precautions Other Precautions Falls M3 PT-IP Subjective Start: 01/02/20 16:45 Freq: NEEDED Status: Active Protocol: Document 01/02/20 15:54 AB (Rec: 01/02/20 17:02 AB [id number]) Subjective Physical Therapy Visit Type Type Initial Evaluation Visit Start Time 15:54 Visit Stop Time 16:21 Total Visit Minutes 27 Number of DIRECTOR OF STUDENT AID Visits 0 Physical Therapy Visit Comments Patient Comments stated that he is feeling well and same as how he feels yesterday Therapy Pain Assessment Pain Present Pain Present Denied Pain M4 PT-IP Mobility and Gait Start: 01/02/20 16:45 Freq: NEEDED Status: Active Protocol: Document 01/02/20 15:54 AB (Rec: 01/02/20 17:02 AB [id number]) PT-Bed Mobility Assessment Sit to Supine Sit to Supine Standby Assistance PT-Transfer Assessment Sit to and From Stand Sit to and from Stand Contact Guard Assistance,1 Person Assistance,Use of Upper Extremities Equipment Transfer Assistive Device None,Gait Belt Orthotic/Prosthetic Devices or Brace: No Transfers Transfer Destination Chair Transfer Technique ambulated without AD Transfer Ability Level of Assist Contact Guard Assistance,1 Person Assistance,Use of Upper Extremities Comments Mobility Comments pt completed supine to sit SBA . pt can be impulsive. completed sit to stand CGA and ambulated in room CGA without AD. (+) LOB requiring occasional min A and cues. pt with increase lateral trunk leaning to the R with bilateral flat feet with increase inversion on R foot. pt requires repeated cues to slow down. pt ambulated down to the hallway CGA to occasional min A. completed up/down steps min to mod A wiht (+) LOB requiring mod A for recovery. pt ambulated back to his room CGA to min A and cues. agreed to sit up on chair. positioned on chair. call light and table placed within reach. Gait Assessment Gait Gait Assistance Required: Contact Guard Assist,Minimum Assistance Distance (Feet) 150 Able to Maintain Weight Bearing Status Yes During Gait Assistive Devices Assistive Device None,Gait Belt Orthotic/Prosthetic Devices or Brace: No Gait Deviations General Gait Pattern Antalgic,Decreased Stride Length,Decreased Feet Clearance,Flexed Trunk,Lateral Trunk Lean Factors Limiting Gait Function Factors Limiting Gait Function Decreased Strength,Poor Balance,Poor Safety Awareness Comments Gait Comments pls refer to mobility section for details Stair Climbing Assessment Evaluation Level of Assist On Stairs Moderate Assistance Devices Stair Climbing Assistive Devices None,Right Railing Technique/Endurance Stair Climbing Direction Ascend and Descend Stair Climbing Technique Step Over Step,Step to Step Number of Steps Climbed 3 Query Text: Stair Climbing Set # Repetitions (reps) 2 Comments Stair Climbing Comments pt completed up/down steps using R rail CGA; completed without rails min to mod A and cues with (+) LOB. educated on doing step to pattern instead of step through for safety. pt agreed. PT-Balance Assessment Sitting Balance and Reactions Static Sitting Balance Ability Good Dynamic Sitting Balance Ability Good Standing Balance and Reactions Static Standing Balance Ability Fair Dynamic Standing Balance Ability Poor Device Used without aD M5 PT-IP Objective Assessments Start: 01/02/20 16:45 Freq: NEEDED Status: Active Protocol: Document 01/02/20 15:54 AB (Rec: 01/02/20 17:02 AB [id number]) Orientation Orientation/Cognition Level of Alertness Alert Orientation Name,Place,Situation Language Function Ability Hard of Hearing Safety Awareness Decreased Safety Awareness Gross Range of Motion Lower Extremity ROM Assessment Within Functional Limits Strength Lower Extremity Strength Hip 4-/5 Knee 4-/5 Coordination Assessment Gross Coordination Gross Coordination WNL Muscle Tone Muscle Tone WNL Yes M6 PT-IP Treatment Start: 01/02/20 16:45 Freq: NEEDED Status: Active Protocol: Document 01/02/20 15:54 AB (Rec: 01/02/20 17:02 AB [id number]) Physical Therapy Treatment Education Education Provided Safety M7 PT-IP Assessment and Plan Start: 01/02/20 16:45 Freq: NEEDED Status: Active Protocol: Document 01/02/20 15:54 AB (Rec: 01/02/20 17:02 AB [id number]) PT Summary Assessment and Plan Potential Rehabilitation Potential Good Status of Condition at Evaluation Stable Summary Impairments Pain,ROM,Strength,Balance, Coordination,Sensation,Tone, Cognition,Bed Mobility, Transfers,Gait,Activity Tolerance Assessment Summary pt requiring min to mod A with stairs and CGA to min A with ambulation. pt has decrease safety awareness and is impulsive. d/c plan depending on progress. will continue to assess pt's mobility. will conduct caregiver training when appropriate. Goals Bed Mobility Goal Independent Transfer Goal Independent,Cane Gait Goal Independent,Cane Gait Distance 250 Other Goals ambulation without AD 300 ft SBA up/down 5 steps without rails SBA Days to Meet Goals 10 Frequency of Treatment Frequency Of Treatment Once a Day Treatment Plan Physical Therapy Treatment Plan Bed Mobility Training,Transfer Training,Gait Training, Therapeutic Exercise,Balance Retraining,Post Op Education, Discharge Planning,Hot or Cold Pack,Neuromuscular Re-ed, Coordination Retraining,Manual Therapy Other Recommendations and Next Treatment ambulation with shoes on : Focus using SPC or without AD; stair climbing Recommendations To Nursing Amount of Assist Needed 1 Person Assist Discharge Recommendations PT Discharge Recommendations Home with Assistance, Outpatient PT Transportation Needs at Discharge Private Vehicle
--- NOTE | 2020-01-02 19:31 | PC.NURSE ---
Addendum entered by Lisbeth Hahn R.N. 01/02/20 22:45: 1730 note- This note is for another pt, not Mr Emmanuel Original Note: 1730- Pt has refused to be turned, and refused this instructional writer to change drsg to left buttock. Pt is to transfer to ICU approx 1999, and pt reported she will comply to drsg changes and Q-2turns. Reported to Dr Alvarado of pts hypotension 96/46, new orders for 1L NS @ 75. Pt desated to mid 80s increased O2 to 6L, RT admin neb Tx, Pt 91-93% 4L nc. Pt reported nausea admin zofran and 0.5 ativan, 1hr laterpt reports comfortable, denies nausea. Chronic feliciano in place and draining clear yellow urine. Pt chronic tachy 102-115, PCP aware.
[2020-01-02] MEDS: SIMVASTATIN 20 MG TABLET PO (22:17)
[2020-01-03] MEDS: DEXTROSE 5%-0.45% NS 1,000 ML 100 ML IV (03:42)
[2020-01-03 05:00] VITALS: BP 137/76; PULSE 64; RESP 16; TEMP 37; O2SAT 97
[2020-01-03 08:29] VITALS: BP 138/83; PULSE 68; RESP 16; TEMP 36.7; O2SAT 97
[2020-01-03] MEDS: ASPIRIN EC 81 MG TABLET PO (09:34)
[2020-01-03] MEDS: ENOXAPARIN 40 MG/0.4 ML SYRINGE SUBCUT (09:34)
--- NOTE | 2020-01-03 12:05 | OT.IP.EVAL ---
Current Diagnoses Cerebral infarction, unspecified (01/03/20) Past Medical History (Last Reviewed 01/02/20 @ 13:06 by Dee Deluca MD) Arthritis (Chronic) Colon polyps (Resolved 2000) Diverticular disease (Chronic) Hearing loss (Chronic) History of basal cell carcinoma (BCC) (Resolved) History of SCC (squamous cell carcinoma) of skin (Resolved) Hyperlipidemia (Chronic) Vertigo (Resolved 2006) Surgical History (Last Reviewed 01/02/20 @ 13:07 by Dee Deluca MD) History of basal cell carcinoma (BCC) excision (Resolved) History of colonoscopy with polypectomy (Resolved 10/24/13) History of colonoscopy with polypectomy (Resolved 05/24/07) History of colonoscopy with polypectomy (Resolved 01/24/04) History of squamous cell carcinoma excision (Resolved) Status post amputation of extremity (Resolved) Status post rotator cuff repair (Resolved 2005) Occupational Therapy Inpatient Evaluation/Re-Eval M1 PT/OT-IP Prior Functional Status Start: 01/02/20 16:45 Freq: NEEDED Status: Active Protocol: Document 01/03/20 12:05 PJM (Rec: 01/03/20 15:34 [facility] [id number]) Medical Review Prior Functional Status Medical History Reviewed Yes Diet/Fluid Consistency Regular Communication Pt able to make needs known, but having trouble with word finding per . Mobility and Gait Pt states he is independent with ambulation without AD, but was going to out pt P.T. for balance problems. Activities of Daily Living and IADL's Pt states he is independent with all self care, does some grocery shopping, cleanup after dinner, laundry and shares specialty therapist with . Pt drives short distances. does all long distance and freeway driving. Prior Functional Level (Other details) Supportive, capable can provide 24 hr assist at d/c PRN. Social History Household Members spouse Living Arrangements House Number of Floors (Floors) Two Floors Number of Stairs To Enter/Railing? 5 NATALIE with no rail on first 3 and railing on last 2 Home Environment High Toilet,Walk in Shower, Built-In Shower Seat Employment Status Retired Additional Social History Comment pt/ live on main level of home M2 OT-IP Current Condition Start: 01/03/20 08:43 Freq: Status: Active Protocol: Document 01/03/20 12:05 PJM (Rec: 01/03/20 15:34 [facility] [id number]) Occupational Therapy Current Condition Current Condition Evaluation Date 01/03/20 Treatment Diagnosis stroke:decreased ADLS/mobility, LUE/hand weakness,dexterity deficit,cog def Diagnosis Onset Date 01/02/20 Post Operative Precautions Other Precautions fall risk, M3 OT- IP Subjective and Pain Start: 01/03/20 08:43 Freq: Status: Active Protocol: Document 01/03/20 12:05 PJM (Rec: 01/03/20 15:34 [facility] [id number]) OT- Subjective Occupational Therapy Visit Type Type Initial Evaluation Visit Start Time 09:31 Visit Stop Time 10:25 Total Visit Minutes 54 Notes split session, completed 1140- 1205, 54 min +25 min Occupational Therapy Visit Comments Patient Comments I only got 3 hours of sleep last night. Patient/Caregiver Goals to go home today, get my balance back and be able to use my L hand better, to take trip to [place] in January OT Pain Assessment Pain When Pain Assessed After Treatment Pain Present Pain Present Denied Pain M4 OT- IP ADL's Start: 01/03/20 08:43 Freq: Status: Active Protocol: Document 01/03/20 12:05 PJ (Rec: 01/03/20 15:34 [facility] [id number]) OT [id number] General Evaluation Self-Feeding Ability Independent Comments OT Self-Feeding Comments using R dominant hand OT ADL-Grooming General Evaluation Grooming Ability Standby Assistance Areas Needing Assistance Retrieving/Set-up of Grooming Items,Face Washing Comments OT Grooming Comments standing at sink OT ADL-Oral Care General Eval Oral Care Ability Standby Assistance,Minimal Assistance Areas of Assistance Brushing Teeth,Managing Dentures,Retrieving/Set-Up of Items Devices Oral Care Devices Toothbrush Comments Oral Care Comments B hand tremors noted with pt dropping partial and toothpaste cap into sink, moves quickly, verbal cues for unfamiliar sink set up OT ADL-Dressing General Eval Upper Body Dressing Ability Standby Assistance Lower Body Dressing Ability Standby Assistance Areas Needing Assistance Retrieving/Set-up of Clothing, Managing Buttons,Managing Zippers/Fasteners,Underpants/ Brief,Pants/Shorts,Socks,Shoes Assistive Devices Dressing Assistive Devices Button Hook Comments OT Dressing Comments Provided education re: button hook/resources due to B hand tremors and decreased L hand dexterity. Pt had difficulty with button on jeans with multiple attempts needed to fasten it. Pt able to tie shoes slowly. Moves quickly and unsteady when bending over to reach feet. OT ADL-Toileting General Evaluation Toileting Ability Standby Assistance Areas Needing Assistance Manage Clothing OT ADL-Bathing Devices Bathing Equipment Long Handled Sponge or [place], Hand Held Shower Sprayer, Shower Chair with Arms Comments OT Bathing Comments Provided education to pt and re: bathroom safety equipt options to increase safety. Recommend shower seat with back and arms, grab bars, hand held shower hose. M5 OT- IP IADL's Start: 01/03/20 08:43 Freq: Status: Active Protocol: Document 01/03/20 12:05 PJ (Rec: 01/03/20 15:34 [facility] [id number]) OT-Instrumental Activities of Daily Living Deficits IADL Deficits Identified Deficits Home Safety Awareness Awareness of Need for Assistance at Home Decreased Awareness Medication Management Medication Management Caregiver Provides Supervision Medication Management Comments Recommend pt have supervision due to memory deficits. can assist with pill box set up. Money Management Money Management Caregiver Provides Supervision Money Management Comments Recommend pt have supervision due to memory deficits Meal Preparation Meal Preparation Caregiver Provides Assist Meal Preparation Comments can assist PRN Burial Vault Maker Burial Vault Maker Caregiver Provides Assist Burial Vault Maker Comments can assist PRN Driving Driving Caregiver Provides Assist Driving Comments Recommend pt not drive at this time due to decreased performance on SLUMS and Trailmaking B. See details below. M6 OT- IP Functional Cognition Start: 01/03/20 08:43 Freq: Status: Active Protocol: Document 01/03/20 12:05 PJ (Rec: 01/03/20 15:34 [facility] [id number]) Cognitive Factors Limiting Selfcare Function Cognitive Ability Level of Alertness Alert Patient Orientation Name,Age,Birthday,Month,Year, Place,Situation Attention Span Ability Capable of Focused Attention, Capable of Sustained Attention Ability to Follow Commands Able to Follow One Step Commands Memory Description Short Term Impaired,Working Impaired Safety Awareness Decreased Ability to Apply Precautions,Underestimates Need for Assistance Problem Solving Ability Unable to Identify Errors, Needs Assist to Identify Solutions Executive Function Ability Unable to Remember Details Cognitive Tests SLUMS Pt scored 17/30 (norm is 27/30 ). Pt had difficulty with immediate, short term and working memory tasks. Word generation is slow and mildly repetitive. Pt had difficulty placing numbers on clock drawing even after 2 trials. He recalls 2/4 facts about short apragraph read to him and 3/5 words after 5 min delay. Cognitive Comments Cognitive Assessment Comments Trailmaking A/B: Pt completed Trails A in 101 sec (norm is <39 sec). Pt completed Trails B in 254 sec (norm is <85 sec). He had difficulty with visual scanning, divided attention and sequencing of task with constant cueing required for second half of test. Per AMA guidelines, persons, scoring > 180 sec on Trails B may be at higher risk of auto accident in the upcoming year. Provided education to pt/ re: results of cognitive screening tests. OT- Vision and Hearing OT- Hearing Assessment OT- Hearing Assessment WFL OT- Vision Assessment Visual Acuity WFL,Glasses All The Time Visual Attentiveness WFL Occular Pursuits WFL Visual [place] WFL Diplopia Absent Vision Assessment Comments ? slight L lower quadrant neglect on Trailmaking test M7 OT- IP Mobility and Balance Start: 01/03/20 08:43 Freq: Status: Active Protocol: Document 01/03/20 12:05 PJM (Rec: 01/03/20 15:34 [facility] [id number]) OT-Transfer Assessment Comments Mobility Comments SBA to CGA due to unsteadiness on turns with verbal cues for pacing and to reach for arm of chair before sitting. OT- Gait Assessment Gait Distance (Feet) 20 Assistive Devices Assistive Device Gait Belt Comments Gait Ability Comments See P.T. notes for further gait information OT- Balance Assessment Sitting Balance and Reactions Static Sitting Balance Ability Good Dynamic Sitting Balance Ability Fair Standing Balance and Reactions Static Standing Balance Ability Good Dynamic Standing Balance Ability Fair M8 OT- IP Objective Assessments Start: 01/03/20 08:43 Freq: Status: Active Protocol: Document 01/03/20 12:05 PJM (Rec: 01/03/20 15:34 [facility] [id number]) OT Gross Range of Motion Upper Extremity Range of Motion Assessment Left Impaired ROM Impairments LUE slightly slower during BUE AROM; arthritic changes notedin IP's of B hands OT Strength Upper Extremity Strength Assessment Left Impaired Shoulder flex/abd R 5/5 L 4+/5 Elbow flex/ext R 5/5 Wrist ext R 5/5 L 5/5 Hand see below Hand Business Center Representative Strength Hand Dominance Right Right Business Center Representative Strength (lbs) (lbs) 75 Left Business Center Representative Strength (lbs) (lbs) 70 Comments Strength Comments B hand and tip pinch strength WNL compared to norms for age and sex OT- Coordination Assessment Upper Extremity Finger to Nose Test Left UE Impaired Finger Tapping Test Left UE Impaired Comments Coordination Comments Pt has B hand tremors which ar not new per . 9-Hole Peg Hand Test Hand Right Scoring Time 34 Interpretation Impaired Norm For Patients Age/Sex 17-30 sec Left Scoring Time 80 Interpretation Impaired Norm For Patients Age/Sex 16-33 sec OT-Muscle Tone Assessment Muscle Tone WNL Yes OT Sensation Assessment Comments Summary Comments BUE intact, pt detects lt touch in LUE Edema Edema Absent M9 OT- IP Assessment and Plan Start: 01/03/20 08:43 Freq: Status: Active Protocol: Document 01/03/20 12:05 PJM (Rec: 01/03/20 15:34 PJM [id number]) OT Summary Assessment and Plan Potential Rehabilitation Potential Good Analytic Complexity at Evaluation Low Summary OT Impairments Strength,Balance,Coordination, Functional Cognition, Functional Mobility,Dressing, Bathing,Shower Transfers Progress Towards Goals Safe For Discharge Assessment Summary Low complexity OT assessment completed on this 79 yr old male admitted with L side weakness. MRI showed small infarct in L cope radiata. PMHX includes balance and memory deficits and B hand tremors. No new vision deficits identified. Pt has significant cognitive deficits on both SLUMS and Trailmaking tests as described above which raise concerns about driving safety. Recommend pt not drive at this time. Results discussed with Dr. Pacheco. will supervise medications and statistical financial analyst at home. Pt has mild proximal strength deficits and moderate dexterity deficits in non dominant LUE/hand. Sensation is intact in BUES. Pt has mild performance deficits in dressing due to difficulty with fasteners. He also has deficits in balance and is unsteady on turns with impulsivity noted. P.T. is recommending pt use FWW at this time. Provided education re: bathroom safety equipment options to increase safety with shower stall transfers and to provide SBA to CGA PRN at home. Pt appears safe to return home with 24 hr assist from supportive, capable . Recommend out pt OT followup to address LUE/hand dexterity, B hand tremors and functional cognition deficits. Frequency of Treatment Frequency Of Treatment Discharge Discharge Recommendations OT Discharge Recommendations Home with 14/06 Assist Other Discharge Recommendations out pt OT services Home Equipment Needs shower seat, grab bars, hand held shower hose Transportation Needs at Discharge Private Vehicle
--- NOTE | 2020-01-03 12:22 | PT.IPTN ---
Current Diagnoses Cerebral infarction, unspecified (01/02/20) Physical Therapy Treatment Note M2 PT-IP Current Condition Start: 01/02/20 16:45 Freq: NEEDED Status: Active Protocol: Document 01/02/20 15:54 AB (Rec: 01/02/20 17:02 AB [id number]) Physical Therapy Current Condition Current Condition Evaluation Date 01/02/20 Treatment Diagnosis TIA; difficulty in walking Onset Date 01/02/2020 Precautions Other Precautions Falls M3 PT-IP Subjective Start: 01/02/20 16:45 Freq: NEEDED Status: Active Protocol: Document 01/03/20 11:00 MB (Rec: 01/03/20 12:22 MB [id number]) Subjective Physical Therapy Visit Type Type Treatment Note Visit Start Time 11:00 Visit Stop Time 11:40 Total Visit Minutes 40 Number of BOAT WRAPPER Visits 0 Physical Therapy Visit Comments Patient Comments Pt states that he is ready to go. M4 PT-IP Mobility and Gait Start: 01/02/20 16:45 Freq: NEEDED Status: Active Protocol: Document 01/03/20 11:00 MB (Rec: 01/03/20 12:22 MB [id number]) PT-Transfer Assessment Sit to and From Stand Sit to and from Stand Standby Assistance,Use of Upper Extremities Equipment Transfer Assistive Device Gait Belt Transfers Transfer Destination Chair Transfer Ability Level of Assist Standby Assistance,1 Person Assistance,Use of Upper Extremities Comments Mobility Comments Pt requires cues to back up to chair with cane and walker and to reach back for chair before sitting. He is impulsive and tends to step outside of walker to get to the chair. Cues to stay inside the walker. Gait Assessment Gait Gait Assistance Required: Standby Assistance Distance (Feet) 150 Assistive Devices Assistive Device None,Gait Belt,Straight Cane, Front Wheeled Walker Gait Deviations General Gait Pattern Flexed Trunk,Lateral Trunk Lean,Narrow Based Gait Factors Limiting Gait Function Factors Limiting Gait Function Difficulty Following Directions,Poor Balance,Poor Safety Awareness Comments Gait Comments Pt is very impulsive. 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 Gait trial 1: socks, no AD, SBA with gait belt, heavy right lateral lean d/t baseline LE and foot changes, impulsive, 150'. Gait trial 2: socks and shoes and pt with one episode of shoe catching on floor and min A to prevent fall with rest of gait SBA. Provided cane and he has trouble coordinating use of cane in right hand with left foot step, 150'; Gait trial 3: socks and shoes and RW and gait is much improved though pt takes sharp 90 deg turns, stepping out of walker and requiring cues and SBA. Overall, he is ongoing impulsive, decreased safety insight and high risk of falls no matter what AD or foot wear changes are made. Ed pt and on benefits of RW for increased ULISES, wearing better shoes at home, use of rail for steps. Stair Climbing Assessment Evaluation Level of Assist On Stairs Standby Assistance Devices Stair Climbing Assistive Devices None,Straight Cane,Left Railing Technique/Endurance Stair Climbing Direction Ascend Stair Climbing Technique Step Over Step,Step to Step Number of Steps Climbed 3 Stair Climbing Set # Repetitions (reps) 10 Comments Stair Climbing Comments Multiple trials of stairs. Pt does not respond to cues for step-to pattern and so cues for railing and alternating steps given. Tried with 1 rail , 1 rail and cane (he does do step to with the cane but gait is not better) and no rails. Best balance with 1 rail and alternating steps. No tripping on the steps but he does have heavy forward lean descending when not using rail. PT-Balance Assessment Balance Tests Romberg 30 sec EO and EC M5 PT-IP Objective Assessments Start: 01/02/20 16:45 Freq: NEEDED Status: Active Protocol: Document 01/02/20 15:54 AB (Rec: 01/02/20 17:02 AB [id number]) Orientation Orientation/Cognition Level of Alertness Alert Orientation Name,Place,Situation Language Function Ability Hard of Hearing Safety Awareness Decreased Safety Awareness Gross Range of Motion Lower Extremity ROM Assessment Within Functional Limits Strength Lower Extremity Strength Hip 4-/5 Knee 4-/5 Coordination Assessment Gross Coordination Gross Coordination WNL Muscle Tone Muscle Tone WNL Yes M6 PT-IP Treatment Start: 01/02/20 16:45 Freq: NEEDED Status: Active Protocol: Document 01/03/20 11:00 MB (Rec: 01/03/20 12:22 MB [id number]) Physical Therapy Treatment Education Education Provided Safety M7 PT-IP Assessment and Plan Start: 01/02/20 16:45 Freq: NEEDED Status: Active Protocol: Document 01/03/20 11:00 MB (Rec: 01/03/20 12:22 MB [id number]) PT Summary Assessment and Plan Summary Assessment Summary Pt con't with impulsivity and is at high fall risk no matter what AD and cues he uses. His is nearby for treatment and feels that she can manage him at home and she will bring him to OPPT and he will bring his RW to OPPT. He is agreeable to use his RW at home. Goals Bed Mobility Goal Independent Transfer Goal Independent Gait Goal Independent,Front Wheel Walker Gait Distance 250 Other Goals Stair goal met Days to Meet Goals 10 Frequency of Treatment Frequency Of Treatment Once a Day Treatment Plan Physical Therapy Treatment Plan Bed Mobility Training,Transfer Training,Gait Training, Therapeutic Exercise,Balance Retraining,Post Op Education, Discharge Planning,Hot or Cold Pack,Neuromuscular Re-ed, Coordination Retraining,Manual Therapy Other Recommendations and Next Treatment ambulation with shoes on : Focus using SPC or without AD; stair climbing Recommendations To Nursing Amount of Assist Needed 1 Person Assist Discharge Recommendations PT Discharge Recommendations Home with Assistance, Outpatient PT Transportation Needs at Discharge Private Vehicle
[2020-01-03 12:25] VITALS: BP 132/75; PULSE 87; RESP 16; TEMP 37.1; O2SAT 95
--- NOTE | 2020-01-03 12:52 | P.DS_ITS ---
History of Present Illness History of Present Illness Date Patient Seen: 01/03/20 Time Patient Seen: 12:52 Chief complaint: Stroke Narrative: Per Dr. Deluca, The patient is a 79-year-old male with a history of hyperlipidemia, vertigo, diverticular disease, and arthritis who was in his usual state of health until this morning when the patient got up out of bed to go to the restroom he noted that he was unable to use his left hand and was unsteady on his feet. The patient does have a history of vertigo. He reports the sensation of spinning. However today his symptoms were different. As he got out of bed he was unable to walk without holding onto the cook. When he attempted to put his socks on he could not use his left hand. He describes having numbness in the left hand. He also reports weakness of the left hand. He had no facial droop, no speech disturbance, no headache, no blurred vision, no change in vision, no spots or floaters. The patient and his called 911. By the time EMS had arrived the patient's strength in the left hand was improving. He was brought into the emergency room and evaluated. Head CT was obtained in the ER which was negative. He had an NIH score of 0. Patient was admitted to the hospital for evaluation of probable TIA. Patient denies any prior history of stroke, no history of TIAs, no weakness or numbness. He denies any chest pain shortness of breath or palpitations. He has no history of atrial fibrillation. Discharge Providers Provider Date of admission: 01/03/20 11:57 Discharge Date: 01/03/20 Primary care physician: Tomi Pathak MD Consults: 01/02/20 12:50 Consult to Occupational Therapy Evaluate & Treat Comment: Physician Instructions: Evaluate and treat Consult to Physical Therapy Evaluate & Treat Comment: Physician Instructions: Evaluate and Treat Discharge provider: Gustavo Pacheco DO Summary Hospital Course Hospital Course: 79-year-old male admitted with abrupt onset left arm weakness, numbness, left leg weakness, gait disturbance initially suggestive of a TIA. His symptoms improved and he did return to baseline however MRI was positive for acute infarct in his R carona radiata. 1. CVA, R, acute, present on admission - symptoms resolved upon discharge. Gunnar obrien was seen and evaluated by PT and OT and discharged home. -patient discharged on a high intensity statin and plavix for CVA as noted above on MRI. -TTE was unable to be performed due to lack of availability, patient should obtain one as an outpatient which I have ordered. Given negative vascular imaging consider further monitoring for atrial fibrillation as well. -patient is okay to resume outpatient physcial therapy. 2. Hyperlipidemia -patient was changed to a high intensity statin upon discharge given CVA as noted above. 3. Vertigo -continue meclizine as needed, patient okay to continue outpatient PT. Exam Vital Signs (past 8 hours): - 01/03/20 05:00 01/03/20 08:29 01/03/20 12:25 Temperature 98.6 F 98.1 F 98.8 F Pulse Rate 64 68 87 Respiratory Rate 16 16 16 Blood Pressure 137/76 138/83 132/75 Pulse Oximetry 97 97 95 Oxygen Delivery Method Room Air Oxygen Flow Rate 0 Narrative Exam Narrative: Pleasant gentleman resting comfortably in no obvious distress HEENT: Normocephalic atraumatic, extraocular muscles are intact, visual burciaga are normal to confrontation, no facial droop, tongue is midline, neck is supple without adenopathy or thyromegaly Lungs: Clear to auscultation Cardiac exam: Regular rate and rhythm normal S1-S2 with a 2/6 systolic ejection murmur Abdomen: Soft nontender nondistended without hepatosplenomegaly Extremities: No edema Neuro exam: Cranial nerves 2-12 are intact, strength is symmetric and equal, sensation is grossly intact, reflexes are brisk and equal, patient has some dysmetria on the left upper extremity Objective Labs Result Diagrams: 01/02/20 08:20 01/02/20 08:20 Labs: Laboratory Results - last 24 hr 01/02/20 08:20 Triglycerides 140 Cholesterol 192 LDL Cholesterol, Calc 120 H HDL Cholesterol 44 Discharge Plan Discharge Plan Patient Disposition: Home Discharge comment: You were admitted to the hospital for a possible stroke. Your MRI did show a small stroke. You are being started on clopidogrel only to prevent a recurrent stroke. Your statin medication is also being changed to a higher strength formulation and dose. As part of your evaluation your seen by occupational therapy, and it is recommended that you shouldn't drive. Please follow up with your primary care provider. You were unable to have an echocardiogram as an inpatient, but this can be completed as an outpatient. This test was ordered for you. You can also continue care with your outpatient PT as previously ordered. Discharge orders & Medications Prescriptions: New atorvastatin 40 mg tablet 40 mg PO BEDTIME 30 Days Qty: 30 RF: 0 clopidogrel 75 mg tablet 75 mg PO DAILY 30 Days Qty: 30 RF: 0 Continued meclizine 25 MG tablet 25 mg PO Q6HP PRN (Reason: Vertigo) RF: 0 multivitamin Tablet 1 tab PO DAILY RF: 0 ascorbic acid (vitamin C) [Vitamin C] 500 mg Tablet,Chewable 500 mg PO DAILY RF: 0 CoQ-10 1 cap PO DAILY RF: 0 Vitamin B-12 1 tab PO DAILY RF: 0 Vitamin B3 1 tab PO DAILY RF: 0 Vitamin D3 1 cap PO DAILY RF: 0 Discontinued simvastatin 20 mg tablet 20 mg PO QPM Qty: 90 RF: 3 Other Ambulatory Orders: EC echo doppler complete (Routine) Timeframe: 1 Week Facility: [facility] - Location: Radiology Ordered By: Gustavo Pacheco Follow up/Referrals: Tomi Pathak MD [Primary Care Provider] - Discharge Health Status Health Concerns: CVA Diet/Activity/Treatments Diet: Diet as Tolerated Activity: As tolerated with outpatient PT Visit Report/Discharge Packet Instructions: DI for Stroke-Ischemic, Atorvastatin, Clopidogrel Discharge Data Primary Care Provider: Tomi Pathak Discharges patient from system. Discharge Date/Time: 01/03/20 14:35 Quality VTE Deep Vein Thrombosis/Pulmonary Embolism Present on Admission: No
--- NOTE | 2020-01-03 13:11 | CM.DANOTE ---
Patient is a 79 year old male who was admitted on 01/02/20 for Possible Stroke. Pt has MCR and BCBS OUT STATE REG for insurance and his PCP is Dr. Tomi Pathak. EMR was reviewed. Per MD, pt was admitted to be observed for possible TIA vs Stroke and MRI was positive for stroke but pt's cognitive issues and weakness seem to be back to his baseline. And Echo is not available for today so possible d/c home today with outpt Echo for tomorrow. Per PT/OT, pt and spouse completed CG and stairs training today and recommending safe d/c home with spouse assist and continued outpt PT. SW met bedside with pt and spouse and explained role and they confirm that they live at home in [place] and pt is independent with ADL's at baseline and denies any hx of HH or SNF. Pt states that he has never had to be hospitalized before and feels comfortable with d/c home tonight after showering with LAWN [employer] GARDEN TECHNICIAN and spouse with follow up appointments with PCP and Echo tomorrow and continued outpt PT with [facility] outpt therapy team. Spouse states she would prefer Echo be done as inpt as she doesn't want to have to worry about pt but is aware that pt preference would be to go home. Spouse is pt's DPOA. Plan: Patient to d/c home this evening via spouse POV and follow up appointments with PCP and outpt PT as well as likely Echo tomorrow as outpt. No further SW needs at this time. MAXIM Stanley Discharge Planning/Care Management CM Discharge Assessment Start: 01/03/20 13:06 Freq: Status: Active Protocol: Document 01/03/20 13:06 (Rec: 01/03/20 13:10 [id number]) Discharge Planning Assessment Assigned Algologist jessy alex DPOA/Assigned Designee Name spouse Kiersten Contact Information [phone] Advance Directives? Yes: Advance Health Care Directive History Provided By Patient,Significant Other, Medical Record Has Patient been admitted in last 30 No days? Prior Living Arrangements House Household Members spouse Type of transporation used prior to Drives own vehicle admit Independent with ADL's Yes Is patient alert and oriented? Yes Needs Assistance With Managing Medications Caregiver for Another No Community Services used prior to Physical Therapy admission: Patient/Family Preference OP PT Therapy Barriers to Discharge No Discharge Plan Home Community Services Physical Therapy Transportation Arrangement Spouse bedside and can provide transport at d/c. Referrals Initiated None needed Whiteboard Updated in Patient Room with Yes name and ext. # of Algologist Review Status In Process Please Provide Date Initial DC 01/03/20 Assessment Was Performed Next Review Type Continued Stay Review
--- NOTE | 2020-01-03 14:46 | PC.NURSE ---
Discharge instructions and home care handouts reviewed with patient and his , they state understanding and have no further questions or concerns. Prescriptions sent in electronically to preferred pharmacy by physician. IV removed intact.
== END 2020-01-03 14:35 | disposition home or self-care (01) | DRG 65 ==
LOC: ED 08:39 → AC 09:13
PROVIDERS: Admitting Provider Internal Medicine; Emergency Provider Emergency Medicine; PCP Student in an Organized Health Care Education/Training Program; Referring Provider Emergency Medicine; Visit Provider Internal Medicine
DX: I63.9 Cerebral infarction, unspecified (principal); G81.94 Hemiplegia, unspecified affecting left nondominant side; R26.89 Other abnormalities of gait and mobility; R42 Dizziness and giddiness; E78.5 Hyperlipidemia, unspecified
CPT/HCPCS: 36415; 70450; 70548; 70551; 80053; 80061; 80305; 80320; 82140; 82962; 83690; 84484; 85025; 85610; 85730; 93005; 97110; 97112; 97116; 97129; 97130; 97161; 97165; 97530; 97535; 99285; G0378; A9579; J1650

== ENCOUNTER → 2020-01-08 08:53 | Outpatient (CLI) | payer MEDICARE, BC, SELFPAY ==
[2020-01-02 10:57] VITALS: BMI 26.8
--- NOTE | 2020-01-08 08:55 | DI.ECHO.S_ITS ---
[facility]---------+ [facility] +---------+ : : [address] : : : : [id number] : : : : Phone: [phone]+ Echocardiogram Report + + :Name: KORY TORRES Study Date: 01/08/2020 Height: 68 in : :[facility] Weight: 175 lb : : Gender: Male BSA: 1.9 m2 : :: 1940 Age: 79 yrs BP: 132/76 mmHg: :Reason For Study: CVA : :Ordering Physician: Elizabeth : :Hospitalist Performed By: Jennifer Valle : :Referring: AMADEO LOWERY : + + Interpretation Summary -Moderate eccentric aortic regurgitation is noted with the jet directed towards the anterior mitral leaflet. This is suspected to be related to restricted motion of the noncoronary cusp. -The etiology of the aortic valve disease is not clear based on this study. -Normal LVEF with moderately increased left ventricular wall thickness. -Normal RV size and function. -No prior echocardiogram for comparison. Procedure: A two-dimensional transthoracic echocardiogram with color flow and Doppler was performed. The study quality was technically adequate. There is no prior echocardiogram noted for this patient. The patient was in normal sinus rhythm during the exam. The patient had occasional PVCs during the exam. Left Ventricle: Left ventricular wall thickness is moderately increased. The left ventricle is normal in size. The ejection fraction is estimated to be 45- 50%. There is a mild dyssynchronous contraction pattern, consistent with a conduction abnormality. There are no focal wall motion abnormalities. Right Ventricle: The right ventricle is normal in size and function. Atria: Both atria are normal in size. There is no Doppler evidence for an interatrial shunt. Mitral Valve: There is mild mitral annular calcification. There is trace mitral regurgitation. Aortic Valve: The aortic valve is trileaflet. There is mild aortic valve sclerosis. The noncoronary cusp appears thickened with limitation in motion. There is moderate aortic regurgitation. There is an eccentric jet of aortic insufficiency directed against the anterior mitral leaflet. Tricuspid Valve: The tricuspid valve is normal in structure and function. There is mild tricuspid regurgitation. The right ventricular systolic pressure is estimated to be at least 25 mmHg based on an estimated right atrial pressure of 3 mm Hg. Pulmonic Valve: The pulmonic valve is not well visualized. There is a trace or physiologic amount of pulmonic regurgitation. Great Vessels: The aortic root is normal size. The ascending aorta is at the upper limits of normal in size. The IVC is of normal diameter and collapses greater than 50% with a sniff. This suggests a low right atrial pressure of 3 mm Hg. Pericardium/ Pleura There is no pericardial effusion. MMode/2D Measurements & Calculations LVIDd: 5.1 cm LVOT diam: 2.5 cm LVIDs: 3.2 cm Ao root diam: 3.9 cm FS: 38.3 % asc Aorta Diam: 3.5 cm EPSS: 1.1 cm Ao Arch Diam (Prox Trans): 2.8 cm IVSd: 1.5 cm LVPWd: 1.3 cm LV samuel. diameter/BSA (cm/m^2): 2.7 LV sys. diameter/BSA (cm/m^2): 1.6 LA A2 area: 18.7 cm2 RA long axis: 4.5 cm LA A4 area: 11.3 cm2 RA area: 11.1 cm2 LA length (vol): 4.3 cm RA vol: 23.4 ml LA vol: 41.3 ml RA : 12.1 ml/m2 LA vol index: 21.4 ml/m2 IVC diam: 1.7 cm RVD1 (basal): 3.5 cm TAPSE: 1.8 cm Doppler Measurements & Calculations Ao V2 max: 169.7 cm/sec LVOT Max Yousif: 95.3 cm/sec Ao V2 mean: 113.4 cm/sec LV V1 max P.6 mmHg Ao max P.5 mmHg LV V1 VTI: 18.1 cm Ao mean P.7 mmHg NAZARIO(I,D): 2.8 cm2 Ao V2 VTI: 31.0 cm NAZARIO(V,D): 2.7 cm2 sev ratio: 0.58 NAZARIO indexed to BSA (cm^2/m^2): 1.4 MV E max yousif: 44.9 cm/sec TR max yousif: 227.6 cm/sec MV A max yousif: 70.4 cm/sec TR max P.7 mmHg MV E/A: 0.64 PA V2 max: 69.5 cm/sec Med Peak E' Yousif: 6.4 cm/sec PA V2 mean: 46.9 cm/sec E/E' med: 7.0 PA mean P.99 mmHg Lat Peak E' Yousif: 6.7 cm/sec PA pr(Accel): 41.6 mmHg E/E' lat: 6.7 PA Accel Time: 0.07 sec E/e' average: 6.8 MV dec time: 0.17 sec MV P1/2t: 53.5 msec MV 2t max yousif: 47.1 cm/sec SV(LVOT): 86.3 ml MVA(t): 4.1 cm2 Electronically signed by: Virgilio Hicks M.D. on Reading Physician:01/08/2020 05:23 PM
== END ==
PROVIDERS: PCP Student in an Organized Health Care Education/Training Program; Referring Provider Internal Medicine; Visit Provider Internal Medicine
DX: I08.2 Rheumatic disorders of both aortic and tricuspid valves (principal); I63.9 Cerebral infarction, unspecified
CPT/HCPCS: 93306

== ENCOUNTER 2020-01-26 09:45 | Outpatient (RCR) | payer MEDICARE, BC, SELFPAY ==
--- NOTE | 2019-11-08 15:51 | PT.OIE ---
Current Diagnoses Unspecified fall, initial encounter (11/08/19) Past Medical History (Last Reviewed 04/17/19 @ 18:38 by HORTENCIA Garcia) Arthritis (Chronic) Colon polyps (Resolved 2000) Diverticular disease (Chronic) Hearing loss (Chronic) History of basal cell carcinoma (BCC) (Resolved) History of SCC (squamous cell carcinoma) of skin (Resolved) Hyperlipidemia (Chronic) Vertigo (Resolved 2006) Past Surgical History (Last Reviewed 04/17/19 @ 18:38 by HORTENCIA Garcia) History of basal cell carcinoma (BCC) excision (Resolved) History of colonoscopy with polypectomy (Resolved 10/24/13) History of colonoscopy with polypectomy (Resolved 05/24/07) History of colonoscopy with polypectomy (Resolved 01/24/04) History of squamous cell carcinoma excision (Resolved) Status post amputation of extremity (Resolved) Status post rotator cuff repair (Resolved 2005) Visit Care Team Role Provider Type Tomi aPthak MD Attending Provider Physician Primary Care Provider Specialty: Internal Medicine Address: [address] [place] [address], [address], [facility] Email: [email or web address] Physical Therapy Initial Evaluation PT-OP-A Visit Information Start: 11/08/19 07:27 Freq: Status: Active Protocol: Document 11/08/19 10:35 MB (Rec: 11/08/19 11:21 MB [id number]) Out-Patient Physical Therapy Visit Information Visit Information Visit Type Initial Evaluation Visit Note Medicare, unlimited visits Visit Start Time 10:35 Visit Stop Time 11:15 Total Visit Minutes 40 Visit Number 1 PT-OP-B Current Condition Start: 11/08/19 07:27 Freq: Status: Active Protocol: Document 11/08/19 10:35 MB (Rec: 11/08/19 11:21 MB [id number]) Current Condition History of Current Condition Onset Date 2 months ago History of Current Condition Pt reports history of two mechanical falls doing yard work. He has issues when he is walking and not paying attention to where he is going and has had stumbles over curbs. He would like PT for balance. He had 3 bouts of vertigo in the past 3 years and got his neck nikki by chiropractor and it was fixed. He denies neuropathy and leg weakness. He has two missing left toes 3rd and 4th after hunting accident and shooting them. He has been on a statin on 10 years. He has taken Simvastin for 5-6 years. Pt denies pain. He drinks 3-4 cups of coffee a day, social glass of wine or other alcohol and 1-2 glasses of water. He drinks 1-2 cans of diet coke everyday in the summer. Prior Treatments and Tests PT in past after rotator cuff surgery went well PT-OP-C Subjective Start: 11/08/19 07:27 Freq: Status: Active Protocol: Document 11/08/19 10:35 MB (Rec: 11/08/19 15:50 MB [id number]) OP-PT Subjective Patient Comments Patient Comments Pt's goal is to work on his balance. He does mention that he gets dizzy and light-headed occ. He denies pain. PT-OP-D Balance Start: 11/08/19 07:27 Freq: Status: Active Protocol: Document 11/08/19 10:35 MB (Rec: 11/08/19 15:50 MB [id number]) Balance Tests Other Other Balance Tests Performed FGA score 24/30. He has most trouble with tandem gait PT-OP-M Strength Start: 11/08/19 07:27 Freq: Status: Active Protocol: Document 11/08/19 10:35 MB (Rec: 11/08/19 15:50 MB [id number]) Hip Strength Hip Manual Muscle Testing Left Flexion (L2) 3 Fair Abduction 4 Good Right Flexion (L2) 3+ Fair+ Abduction 5 Normal Knee Strength Knee Manual Muscle Testing Left Flexion (S2) 5 Normal Extension (L3) 5 Normal Right Flexion (S2) 5 Normal Extension (L3) 5 Normal Ankle/Foot Strength Ankle and Foot Manual Muscle Testing Left Dorsiflexion (L4) 5 Normal Plantarflexion (S1) 4 Good Right Dorsiflexion (L4) 5 Normal Plantarflexion (S1) 4 Good Toe Strength Toe Manual Muscle Testing Left Great Toe Extension 4 Good Comments 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 Right Great Toe Extension 4 Good PT-OP-Q Treatments Start: 11/08/19 07:27 Freq: Status: Active Protocol: Document 11/08/19 10:35 MB (Rec: 11/08/19 15:50 MB [id number]) Self-Care/Home Management Treatment Education Other Education Pt presents with dropping BP and light headedness when moving from supine to standing . BP and HR in right UE: supine 131/76, 76; standing 122/91, 80. Pt attempted to check twice more and machine does not read. Given symptoms and reports of his fluid intake, ed pt in orthostatic hypotension and provided handouts about what he can do- -slow transitional movements, decrease caffeine and alcohol and increase non-caffeinated fluid intake, consider compression PT-OP-T Assessment and Plan Start: 11/08/19 07:27 Freq: Status: Active Protocol: Document 11/08/19 10:35 MB (Rec: 11/08/19 15:50 MB [id number]) Physical Therapy Assessment Rehab Potential Rehabilitation Potential Good Evaluation Complexity Number of Personal Factors/Comorbidities 1-2 Number of Body Systems Impaired 1-2 Impairments Impairments Balance,Strength Other Impairments Pt presents with mild tremor of left UE with intentional movement, he reports light- headedness and presents with [place] and these are co- morbidities. Goals 3 Coal Carrier Goal (LTG) Pt will perform progressive HEP including balance, postural and LE exercises with I by 01/09/20. LTG Duration 8 weeks 2 Coal Carrier Goal (LTG) Pt will present with B hip flexion strength to 5/5 by . LTG Duration 8 weeks 1 Coal Carrier Goal (LTG) Pt will present with FGA score to at least 28/30 to reflect improved balance by 01/09/20. LTG Duration 8 weeks Physical Therapy Plan Frequency and Duration Frequency of Treatment 2x/Week Duration of Treatment 8 weeks Plan of Care Start Date 11/08/19 Plan of Care End Date 01/09/20 Therapeutic Interventions Therapeutic Interventions Balance Training,Canalithic Repositioning,Coordination Training,Gait Training,Home Exercise Program,Manual Therapy,Neuromuscular Re- education,Patient/Caregiver Education,Self-Care/Home Management,Soft Tissue Mobilization,Taping, Therapeutic Exercises, Vestibular Rehabilitation Modalities Cold Pack/Ice Massage,Electric Stimulation,Hot Packs, Ultrasound Next Visit Focus/Plan Next Note Type Treatment Note Next Visit Plan Initiated HEP
--- NOTE | 2019-11-08 15:51 | PT.OPPOC ---
Current Diagnoses Unspecified fall, initial encounter (11/08/19) Visit Care Team Role Provider Type Tomi Pathak MD Attending Provider Physician Primary Care Provider Specialty: Internal Medicine Address: [address] [place] [address], [address], [place], [address] Email: [email or web address] Plan Of Care PT-OP-T Assessment and Plan Start: 11/08/19 07:27 Freq: Status: Active Protocol: Document 11/08/19 10:35 MB (Rec: 11/08/19 15:50 MB [id number]) Physical Therapy Assessment Rehab Potential Rehabilitation Potential Good Evaluation Complexity Number of Personal Factors/Comorbidities 1-2 Number of Body Systems Impaired 1-2 Impairments Impairments Balance,Strength Other Impairments Pt presents with mild tremor of left UE with intentional movement, he reports light- headedness and presents with [place] and these are co- morbidities. Goals 3 Customer Service Sales Associate Goal (LTG) Pt will perform progressive HEP including balance, postural and LE exercises with I by 01/09/20. LTG Duration 8 weeks 2 Customer Service Sales Associate Goal (LTG) Pt will present with B hip flexion strength to 5/5 by . LTG Duration 8 weeks 1 Customer Service Sales Associate Goal (LTG) Pt will present with FGA score to at least 28/30 to reflect improved balance by 01/09/20. LTG Duration 8 weeks Physical Therapy Plan Frequency and Duration Frequency of Treatment 2x/Week Duration of Treatment 8 weeks Plan of Care Start Date 11/08/19 Plan of Care End Date 01/09/20 Therapeutic Interventions Therapeutic Interventions Balance Training,Canalithic Repositioning,Coordination Training,Gait Training,Home Exercise Program,Manual Therapy,Neuromuscular Re- education,Patient/Caregiver Education,Self-Care/Home Management,Soft Tissue Mobilization,Taping, Therapeutic Exercises, Vestibular Rehabilitation Modalities Cold Pack/Ice Massage,Electric Stimulation,Hot Packs, Ultrasound Next Visit Focus/Plan Next Note Type Treatment Note Next Visit Plan Initiated HEP Plan of Care Dates Plan of Care Start Date 11/08/19 Plan of Care End Date 01/09/20
--- NOTE | 2019-11-13 13:00 | PT.OTN ---
Current Diagnoses Unspecified fall, initial encounter (11/13/19) Physical Therapy Treatment Note PT-OP-A Visit Information Start: 11/08/19 07:27 Freq: Status: Active Protocol: Document 11/13/19 12:15 SP (Rec: 11/13/19 13:05 SP [id number]) Out-Patient Physical Therapy Visit Information Visit Information Visit Type Treatment Note Visit Note medicare, unlimited Visit Start Time 12:15 Visit Stop Time 13:00 Total Visit Minutes 45 Visit Number 2 Number of CRATE TIER Visits 1 PT-OP-B Current Condition Start: 11/08/19 07:27 Freq: Status: Active Protocol: Document 11/08/19 10:35 MB (Rec: 11/08/19 11:21 MB [id number]) Current Condition History of Current Condition Onset Date 2 months ago History of Current Condition Pt reports history of two mechanical falls doing yard work. He has issues when he is walking and not paying attention to where he is going and has had stumbles over curbs. He would like PT for balance. He had 3 bouts of vertigo in the past 3 years and got his neck nikki by chiropractor and it was fixed. He denies neuropathy and leg weakness. He has two missing left toes 3rd and 4th after hunting accident and shooting them. He has been on a statin on 10 years. He has taken Simvastin for 5-6 years. Pt denies pain. He drinks 3-4 cups of coffee a day, social glass of wine or other alcohol and 1-2 glasses of water. He drinks 1-2 cans of diet coke everyday in the summer. Prior Treatments and Tests PT in past after rotator cuff surgery went well PT-OP-C Subjective Start: 11/08/19 07:27 Freq: Status: Active Protocol: Document 11/13/19 12:15 SP (Rec: 11/13/19 13:05 SP [id number]) OP-PT Subjective Patient Comments Patient Comments Pt stated felt good after last tx. Has taken BPs and no significant changes. Pt denies pain or dizziness pre PT. PT-OP-D Balance Start: 11/08/19 07:27 Freq: Status: Active Protocol: Document 11/08/19 10:35 MB (Rec: 11/08/19 15:50 MB [id number]) Balance Tests Other Other Balance Tests Performed FGA score 24/30. He has most trouble with tandem gait PT-OP-M Strength Start: 11/08/19 07:27 Freq: Status: Active Protocol: Document 11/08/19 10:35 MB (Rec: 11/08/19 15:50 MB [id number]) Hip Strength Hip Manual Muscle Testing Left Flexion (L2) 3 Fair Abduction 4 Good Right Flexion (L2) 3+ Fair+ Abduction 5 Normal Knee Strength Knee Manual Muscle Testing Left Flexion (S2) 5 Normal Extension (L3) 5 Normal Right Flexion (S2) 5 Normal Extension (L3) 5 Normal Ankle/Foot Strength Ankle and Foot Manual Muscle Testing Left Dorsiflexion (L4) 5 Normal Plantarflexion (S1) 4 Good Right Dorsiflexion (L4) 5 Normal Plantarflexion (S1) 4 Good Toe Strength Toe Manual Muscle Testing Left Great Toe Extension 4 Good Comments 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 Right Great Toe Extension 4 Good PT-OP-Q Treatments Start: 11/08/19 07:27 Freq: Status: Active Protocol: Document 11/13/19 12:15 SP (Rec: 11/13/19 13:05 SP [id number]) Therapeutic Exercises Standing Exercises sit to stands Resistance Tb #2 loop around knees Reps/Minutes 2x10 lateral band walk Standing Exercise Name lateral, forward, backward Resistance TB loop #1 Equipment Used at rail but not needed Reps/Minutes 10 ft x3 laps Comments cued level pelvis and upright posture Neuro Re-Education Treatment Balance Activities SLS step taps Surface stable Equipment cones, step (HEP) Reps/Duration 1 min x3 Comments alterate BLE tandem Details stationary and UE arm swings Reps/Duration 30 sec x2 Comments cued posture and body plum alignment PT-OP-T Assessment and Plan Start: 11/08/19 07:27 Freq: Status: Active Protocol: Document 11/13/19 12:15 SP (Rec: 11/13/19 13:05 SP [id number]) Physical Therapy Assessment Goals 3 Java Support Engineer Goal (LTG) Pt will perform progressive HEP including balance, postural and LE exercises with I by 01/09/20. LTG Duration 8 weeks 2 Java Support Engineer Goal (LTG) Pt will present with B hip flexion strength to 5/5 by . LTG Duration 8 weeks 1 Java Support Engineer Goal (LTG) Pt will present with FGA score to at least 28/30 to reflect improved balance by 01/09/20. LTG Duration 8 weeks Assessment Summary Assessment Tx focused on introduction of HEP for LE strengthening and balance: sit to stand, resisted monster lateral/f/b walking, tandem and SLS step taps with cuing requried for upright posture and body spacial awareness to allow for self recovery during gait f/b /ss with positive feedback. Initially R hip depression with LLE SLS, improved self righting LLE SLS after tandem and step taps. No report of dizziness during tx today. Physical Therapy Plan Frequency and Duration Frequency of Treatment 2x/Week Duration of Treatment 8 weeks Plan of Care Start Date 11/08/19 Plan of Care End Date 01/09/20 Therapeutic Interventions Therapeutic Interventions Balance Training,Canalithic Repositioning,Coordination Training,Gait Training,Home Exercise Program,Manual Therapy,Neuromuscular Re- education,Patient/Caregiver Education,Self-Care/Home Management,Soft Tissue Mobilization,Taping, Therapeutic Exercises, Vestibular Rehabilitation Modalities Cold Pack/Ice Massage,Electric Stimulation,Hot Packs, Ultrasound Next Visit Focus/Plan Next Note Type Treatment Note Next Visit Plan Assess tolerance to initiation HEP for LE glut facilitation and balance exercises. Next add: tandem EO/EC, walking head turns. Continue per PT POC: HEP initiation.
--- NOTE | 2019-11-24 09:00 | PT.OTN ---
Current Diagnoses Unspecified fall, initial encounter (11/24/19) Physical Therapy Treatment Note PT-OP-A Visit Information Start: 11/08/19 07:27 Freq: Status: Active Protocol: Document 11/24/19 08:15 SP (Rec: 11/24/19 09:08 SP [id number]) Out-Patient Physical Therapy Visit Information Visit Information Visit Type Treatment Note Visit Note medicare, unlimited Visit Start Time 08:15 Visit Stop Time 09:00 Total Visit Minutes 45 Visit Number 3 Number of COMMERCIAL ELECTRICIAN Visits 2 PT-OP-B Current Condition Start: 11/08/19 07:27 Freq: Status: Active Protocol: Document 11/08/19 10:35 MB (Rec: 11/08/19 11:21 MB [id number]) Current Condition History of Current Condition Onset Date 2 months ago History of Current Condition Pt reports history of two mechanical falls doing yard work. He has issues when he is walking and not paying attention to where he is going and has had stumbles over curbs. He would like PT for balance. He had 3 bouts of vertigo in the past 3 years and got his neck nikki by chiropractor and it was fixed. He denies neuropathy and leg weakness. He has two missing left toes 3rd and 4th after hunting accident and shooting them. He has been on a statin on 10 years. He has taken Simvastin for 5-6 years. Pt denies pain. He drinks 3-4 cups of coffee a day, social glass of wine or other alcohol and 1-2 glasses of water. He drinks 1-2 cans of diet coke everyday in the summer. Prior Treatments and Tests PT in past after rotator cuff surgery went well PT-OP-C Subjective Start: 11/08/19 07:27 Freq: Status: Active Protocol: Document 11/24/19 08:15 SP (Rec: 11/24/19 09:08 SP [id number]) OP-PT Subjective Patient Comments Patient Comments Pt stated doing pretty well, compliant with HEP and recently purchased an upright stationary bike. PT-OP-D Balance Start: 11/08/19 07:27 Freq: Status: Active Protocol: Document 11/08/19 10:35 MB (Rec: 11/08/19 15:50 MB [id number]) Balance Tests Other Other Balance Tests Performed FGA score 24/30. He has most trouble with tandem gait PT-OP-M Strength Start: 11/08/19 07:27 Freq: Status: Active Protocol: Document 11/08/19 10:35 MB (Rec: 11/08/19 15:50 MB [id number]) Hip Strength Hip Manual Muscle Testing Left Flexion (L2) 3 Fair Abduction 4 Good Right Flexion (L2) 3+ Fair+ Abduction 5 Normal Knee Strength Knee Manual Muscle Testing Left Flexion (S2) 5 Normal Extension (L3) 5 Normal Right Flexion (S2) 5 Normal Extension (L3) 5 Normal Ankle/Foot Strength Ankle and Foot Manual Muscle Testing Left Dorsiflexion (L4) 5 Normal Plantarflexion (S1) 4 Good Right Dorsiflexion (L4) 5 Normal Plantarflexion (S1) 4 Good Toe Strength Toe Manual Muscle Testing Left Great Toe Extension 4 Good Comments 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 Right Great Toe Extension 4 Good PT-OP-Q Treatments Start: 11/08/19 07:27 Freq: Status: Active Protocol: Document 11/24/19 08:15 SP (Rec: 11/24/19 09:08 SP [id number]) Cardio Equipment Recumbent Bicycle Duration (Minutes) 6 Resistance 4 Seat Position 4 Therapeutic Exercises Standing Exercises lateral step down Side bilateral Equipment Used 4 step Reps/Minutes 2x10 sit to stands Resistance Tb #2 loop around knees (green ) Reps/Minutes 20 lateral band walk Standing Exercise Name lateral, forward, backward Resistance TB loop #2 Equipment Used at rail but not needed Reps/Minutes 10 ft x3 laps Comments cued level pelvis and upright posture Neuro Re-Education Treatment Balance Activities myrna stepping Details f/side stepping Equipment 6 hurdles Reps/Duration 10 ft 3 laps each direction Comments cued slow pacing with upright posture, mirror used for posture awareness backward walk Reps/Duration 10 ft x2 laps Comments cued upright posture and mirror for self corrections high knee stepping Reps/Duration 20 ft x4 laps forward Comments cued slow pacing and upright posture glut facilitation SLS step taps Details single leg stance Surface stable Equipment cones, step (HEP) Reps/Duration 3 min Comments able complete 10 sec each foot x3 tandem Details stationary head turns, EC/EO Reps/Duration 4 min Comments cued elevated posture PT-OP-T Assessment and Plan Start: 11/08/19 07:27 Freq: Status: Active Protocol: Document 11/24/19 08:15 SP (Rec: 11/24/19 09:08 SP [id number]) Physical Therapy Assessment Goals 3 Lgsw Goal (LTG) Pt will perform progressive HEP including balance, postural and LE exercises with I by 01/09/20. LTG Duration 8 weeks 2 Longterm Goal (LTG) Pt will present with B hip flexion strength to 5/5 by . LTG Duration 8 weeks 1 Longterm Goal (LTG) Pt will present with FGA score to at least 28/30 to reflect improved balance by 01/09/20. LTG Duration 8 weeks Assessment Summary Assessment Tx focused on HEP review and added SLS at rail able to maintain 10 sec each foot, tandem with head turns, lateral step down with cued for elevated posture and glut faciltation to allow for increased balance. Initiated balance walking activities, noted R lateral lean, not to be done at home right now. Improved SLS during myrna walking. Physical Therapy Plan Frequency and Duration Frequency of Treatment 2x/Week Duration of Treatment 8 weeks Plan of Care Start Date 11/08/19 Plan of Care End Date 01/09/20 Therapeutic Interventions Therapeutic Interventions Balance Training,Canalithic Repositioning,Coordination Training,Gait Training,Home Exercise Program,Manual Therapy,Neuromuscular Re- education,Patient/Caregiver Education,Self-Care/Home Management,Soft Tissue Mobilization,Taping, Therapeutic Exercises, Vestibular Rehabilitation Modalities Cold Pack/Ice Massage,Electric Stimulation,Hot Packs, Ultrasound Next Visit Focus/Plan Next Note Type Treatment Note Next Visit Plan Assess tolerance to last tx, added SLS, lateral step down and tandem head turns. Continue per PT POC: HEP initiation.
--- NOTE | 2019-11-27 08:15 | PT.OTN ---
Current Diagnoses Unspecified fall, initial encounter (11/27/19) Physical Therapy Treatment Note PT-OP-A Visit Information Start: 11/08/19 07:27 Freq: Status: Active Protocol: Document 11/27/19 07:31 SP (Rec: 11/27/19 08:18 SP [id number]) Out-Patient Physical Therapy Visit Information Visit Information Visit Type Treatment Note Visit Note medicare, unlimited Visit Start Time 07:31 Visit Stop Time 08:15 Total Visit Minutes 44 Visit Number 4 Number of FLOAT TENDER Visits 3 PT-OP-B Current Condition Start: 11/08/19 07:27 Freq: Status: Active Protocol: Document 11/08/19 10:35 MB (Rec: 11/08/19 11:21 MB [id number]) Current Condition History of Current Condition Onset Date 2 months ago History of Current Condition Pt reports history of two mechanical falls doing yard work. He has issues when he is walking and not paying attention to where he is going and has had stumbles over curbs. He would like PT for balance. He had 3 bouts of vertigo in the past 3 years and got his neck nikki by chiropractor and it was fixed. He denies neuropathy and leg weakness. He has two missing left toes 3rd and 4th after hunting accident and shooting them. He has been on a statin on 10 years. He has taken Simvastin for 5-6 years. Pt denies pain. He drinks 3-4 cups of coffee a day, social glass of wine or other alcohol and 1-2 glasses of water. He drinks 1-2 cans of diet coke everyday in the summer. Prior Treatments and Tests PT in past after rotator cuff surgery went well PT-OP-C Subjective Start: 11/08/19 07:27 Freq: Status: Active Protocol: Document 11/27/19 07:31 SP (Rec: 11/27/19 08:18 SP [id number]) OP-PT Subjective Patient Comments Patient Comments Pt stated doing pretty, challenged with step up exercise wants to review today . PT-OP-D Balance Start: 11/08/19 07:27 Freq: Status: Active Protocol: Document 11/08/19 10:35 MB (Rec: 11/08/19 15:50 MB [id number]) Balance Tests Other Other Balance Tests Performed FGA score 24/30. He has most trouble with tandem gait PT-OP-M Strength Start: 11/08/19 07:27 Freq: Status: Active Protocol: Document 11/08/19 10:35 MB (Rec: 11/08/19 15:50 MB [id number]) Hip Strength Hip Manual Muscle Testing Left Flexion (L2) 3 Fair Abduction 4 Good Right Flexion (L2) 3+ Fair+ Abduction 5 Normal Knee Strength Knee Manual Muscle Testing Left Flexion (S2) 5 Normal Extension (L3) 5 Normal Right Flexion (S2) 5 Normal Extension (L3) 5 Normal Ankle/Foot Strength Ankle and Foot Manual Muscle Testing Left Dorsiflexion (L4) 5 Normal Plantarflexion (S1) 4 Good Right Dorsiflexion (L4) 5 Normal Plantarflexion (S1) 4 Good Toe Strength Toe Manual Muscle Testing Left Great Toe Extension 4 Good Comments 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 Right Great Toe Extension 4 Good PT-OP-Q Treatments Start: 11/08/19 07:27 Freq: Status: Active Protocol: Document 11/27/19 07:31 SP (Rec: 11/27/19 08:18 SP [id number]) Cardio Equipment Recumbent Bicycle Duration (Minutes) 7 Resistance 4 Seat Position 4 Therapeutic Exercises Supine Exercises bridge hip abd Equipment Used TB #1 Reps/Minutes 3x10 Comments cued PPT and glut facilitation Standing Exercises lateral step down Side bilateral Equipment Used 6 step, rail Reps/Minutes 2x10 Comments knees in line and not passed toes, slow pace with rail contact sit to stands Resistance Tb #2 loop around knees (green ) Reps/Minutes 20 Comments slow pace and contact chair lateral band walk Standing Exercise Name lateral, forward, backward Resistance TB loop #2 Equipment Used at rail but not needed Reps/Minutes 10 ft x3 laps Comments cued level pelvis and upright posture Neuro Re-Education Treatment Balance Activities SLS step taps Details single leg stance Surface stable Equipment rail, mirror Reps/Duration 3 min Comments able complete 16 sec each foot x3 PT-OP-T Assessment and Plan Start: 11/08/19 07:27 Freq: Status: Active Protocol: Document 11/27/19 07:31 SP (Rec: 11/27/19 08:18 SP [id number]) Physical Therapy Assessment Goals 3 Inflated Ball Molder Goal (LTG) Pt will perform progressive HEP including balance, postural and LE exercises with I by 2/18/20. LTG Duration 8 weeks 2 Inflated Ball Molder Goal (LTG) Pt will present with B hip flexion strength to 5/5 by . LTG Duration 8 weeks 1 Inflated Ball Molder Goal (LTG) Pt will present with FGA score to at least 28/30 to reflect improved balance by 01/09/20. LTG Duration 8 weeks Assessment Summary Assessment Noted R lateral trunk lean with L knee valgus cave during lateral side stepping and step downs, cued for chest lift and awareness of knee midline and not passed toes for proper alignment and slow pacing reps for muscular control with improvement noted . Added bridge hip abd with TB and used mirror for self feedback for posture and B glut med and trunk facilitation Physical Therapy Plan Frequency and Duration Frequency of Treatment 2x/Week Duration of Treatment 8 weeks Plan of Care Start Date 11/08/19 Plan of Care End Date 01/09/20 Therapeutic Interventions Therapeutic Interventions Balance Training,Canalithic Repositioning,Coordination Training,Gait Training,Home Exercise Program,Manual Therapy,Neuromuscular Re- education,Patient/Caregiver Education,Self-Care/Home Management,Soft Tissue Mobilization,Taping, Therapeutic Exercises, Vestibular Rehabilitation Modalities Cold Pack/Ice Massage,Electric Stimulation,Hot Packs, Ultrasound Next Visit Focus/Plan Next Note Type Treatment Note Next Visit Plan Assess tolerance to last tx, added supine bridge hip abd, review HEP standing and progress balance activities. Continue per PT POC: HEP initiation.
--- NOTE | 2019-11-29 17:14 | PT.OTN ---
Current Diagnoses Unspecified fall, initial encounter (11/29/19) Physical Therapy Treatment Note PT-OP-A Visit Information Start: 11/08/19 07:27 Freq: Status: Active Protocol: Document 11/29/19 12:55 AW (Rec: 11/29/19 17:14 AW [id number]) Out-Patient Physical Therapy Visit Information Visit Information Visit Type Treatment Note Visit Note medicare, unlimited Visit Start Time 09:45 Visit Stop Time 10:30 Total Visit Minutes 45 Visit Number 5 Number of INTERNAL GRINDER Visits 0 PT-OP-B Current Condition Start: 11/08/19 07:27 Freq: Status: Active Protocol: Document 11/08/19 10:35 MB (Rec: 11/08/19 11:21 MB [id number]) Current Condition History of Current Condition Onset Date 2 months ago History of Current Condition Pt reports history of two mechanical falls doing yard work. He has issues when he is walking and not paying attention to where he is going and has had stumbles over curbs. He would like PT for balance. He had 3 bouts of vertigo in the past 3 years and got his neck nikki by chiropractor and it was fixed. He denies neuropathy and leg weakness. He has two missing left toes 3rd and 4th after hunting accident and shooting them. He has been on a statin on 10 years. He has taken Simvastin for 5-6 years. Pt denies pain. He drinks 3-4 cups of coffee a day, social glass of wine or other alcohol and 1-2 glasses of water. He drinks 1-2 cans of diet coke everyday in the summer. Prior Treatments and Tests PT in past after rotator cuff surgery went well PT-OP-C Subjective Start: 11/08/19 07:27 Freq: Status: Active Protocol: Document 11/29/19 12:55 AW (Rec: 11/29/19 17:14 AW [id number]) OP-PT Subjective Patient Comments Patient Comments Pt states his stairs are too tall at home for him to safely do the step exercises. He has been staying hydrated and denies any dizziness since last visit. PT-OP-D Balance Start: 11/08/19 07:27 Freq: Status: Active Protocol: Document 11/08/19 10:35 MB (Rec: 11/08/19 15:50 MB [id number]) Balance Tests Other Other Balance Tests Performed FGA score 24/30. He has most trouble with tandem gait PT-OP-M Strength Start: 11/08/19 07:27 Freq: Status: Active Protocol: Document 11/08/19 10:35 MB (Rec: 11/08/19 15:50 MB [id number]) Hip Strength Hip Manual Muscle Testing Left Flexion (L2) 3 Fair Abduction 4 Good Right Flexion (L2) 3+ Fair+ Abduction 5 Normal Knee Strength Knee Manual Muscle Testing Left Flexion (S2) 5 Normal Extension (L3) 5 Normal Right Flexion (S2) 5 Normal Extension (L3) 5 Normal Ankle/Foot Strength Ankle and Foot Manual Muscle Testing Left Dorsiflexion (L4) 5 Normal Plantarflexion (S1) 4 Good Right Dorsiflexion (L4) 5 Normal Plantarflexion (S1) 4 Good Toe Strength Toe Manual Muscle Testing Left Great Toe Extension 4 Good Comments 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 Right Great Toe Extension 4 Good PT-OP-Q Treatments Start: 11/08/19 07:27 Freq: Status: Active Protocol: Document 11/29/19 12:55 AW (Rec: 11/29/19 17:14 AW [id number]) Cardio Equipment Recumbent Bicycle Duration (Minutes) 7 Resistance 4 Seat Position 4 Therapeutic Exercises Supine Exercises bridge hip abd Equipment Used TB #1 Reps/Minutes 1x10; 2x15 Comments cued level pelvis and glut facilitation Standing Exercises lateral step down Side bilateral Equipment Used 6 step, rail Reps/Minutes 2x10 Comments knees in line and not past toes, slow pace with rail contact sit to stands Resistance Tb #2 loop around knees (green ) Reps/Minutes 20 Comments slow pace and contact chair Neuro Re-Education Treatment Balance Activities shuttle balance Details shuttle balance Equipment blue chains Reps/Duration 15 min Comments WBOS/NBOS, EO/EC stationary stance on foam Details stationary stance on foam, EO/ EC Surface firm Equipment 2 foam Reps/Duration 5 minutes SLS step taps Details single leg stance Surface stable Equipment rail, mirror Reps/Duration 5 min Comments able complete 13 sec R and 18 sec L tandem Details stationary head turns Reps/Duration 5 min Comments cued elevated posture PT-OP-T Assessment and Plan Start: 11/08/19 07:27 Freq: Status: Active Protocol: Document 01/08/20 12:55 AW (Rec: 11/29/19 17:14 AW [email or web address]) Physical Therapy Assessment Goals 3 Assisted Goal (LTG) Pt will perform progressive HEP including balance, postural and LE exercises with I by 01/09/20. LTG Duration 8 weeks 2 Car Trimmer Goal (LTG) Pt will present with B hip flexion strength to 5/5 by . LTG Duration 8 weeks 1 Car Trimmer Goal (LTG) Pt will present with FGA score to at least 28/30 to reflect improved balance by 01/09/20. LTG Duration 8 weeks Assessment Summary Assessment Pt tolerated increased balance challenge today, stating balance is one of his primary goals. He continues to require frequent cueing for knee posture in all strengthening activities. Physical Therapy Plan Frequency and Duration Frequency of Treatment 2x/Week Duration of Treatment 8 weeks Plan of Care Start Date 11/08/19 Plan of Care End Date 01/09/20 Therapeutic Interventions Therapeutic Interventions Balance Training,Canalithic Repositioning,Coordination Training,Gait Training,Home Exercise Program,Manual Therapy,Neuromuscular Re- education,Patient/Caregiver Education,Self-Care/Home Management,Soft Tissue Mobilization,Taping, Therapeutic Exercises, Vestibular Rehabilitation Modalities Cold Pack/Ice Massage,Electric Stimulation,Hot Packs, Ultrasound Next Visit Focus/Plan Next Note Type Treatment Note Next Visit Plan Assess tolerance to last tx, progress balance activities. Continue per PT POC: HEP initiation.
--- NOTE | 2019-12-04 10:33 | PT.OTN ---
Current Diagnoses Unspecified fall, initial encounter (12/04/19) Physical Therapy Treatment Note PT-OP-A Visit Information Start: 11/08/19 07:27 Freq: Status: Active Protocol: Document 12/04/19 09:53 SP (Rec: 12/04/19 11:49 SP [id number]) Out-Patient Physical Therapy Visit Information Visit Information Visit Type Treatment Note Visit Note medicare, unlimited Visit Start Time 09:53 Visit Stop Time 10:33 Total Visit Minutes 40 Visit Number 6 Number of FURNACE CHARGING MACHINE OPERATOR Visits 1 PT-OP-B Current Condition Start: 11/08/19 07:27 Freq: Status: Active Protocol: Document 11/08/19 10:35 MB (Rec: 11/08/19 11:21 MB [id number]) Current Condition History of Current Condition Onset Date 2 months ago History of Current Condition Pt reports history of two mechanical falls doing yard work. He has issues when he is walking and not paying attention to where he is going and has had stumbles over curbs. He would like PT for balance. He had 3 bouts of vertigo in the past 3 years and got his neck nikki by chiropractor and it was fixed. He denies neuropathy and leg weakness. He has two missing left toes 3rd and 4th after hunting accident and shooting them. He has been on a statin on 10 years. He has taken Simvastin for 5-6 years. Pt denies pain. He drinks 3-4 cups of coffee a day, social glass of wine or other alcohol and 1-2 glasses of water. He drinks 1-2 cans of diet coke everyday in the summer. 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 PT-OP-D Balance Start: 11/08/19 07:27 Freq: Status: Active Protocol: Document 11/08/19 10:35 MB (Rec: 11/08/19 15:50 MB [id number]) Balance Tests Other Other Balance Tests Performed FGA score 24/30. He has most trouble with tandem gait PT-OP-M Strength Start: 11/08/19 07:27 Freq: Status: Active Protocol: Document 11/08/19 10:35 MB (Rec: 11/08/19 15:50 MB [id number]) Hip Strength Hip Manual Muscle Testing Left Flexion (L2) 3 Fair Abduction 4 Good Right Flexion (L2) 3+ Fair+ Abduction 5 Normal Knee Strength Knee Manual Muscle Testing Left Flexion (S2) 5 Normal Extension (L3) 5 Normal Right Flexion (S2) 5 Normal Extension (L3) 5 Normal Ankle/Foot Strength Ankle and Foot Manual Muscle Testing Left Dorsiflexion (L4) 5 Normal Plantarflexion (S1) 4 Good Right Dorsiflexion (L4) 5 Normal Plantarflexion (S1) 4 Good Toe Strength Toe Manual Muscle Testing Left Great Toe Extension 4 Good Comments 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 Right Great Toe Extension 4 Good PT-OP-Q Treatments Start: 11/08/19 07:27 Freq: Status: Active Protocol: Document 12/04/19 09:53 SP (Rec: 12/04/19 11:49 SP [id number]) Cardio Equipment Recumbent Bicycle Duration (Minutes) 8 Resistance 4 Seat Position 4 Therapeutic Exercises Supine Exercises bridge add hold Supine Exercise Name bridge holding ball Reps/Minutes 3x10 Comments cued PPT, small range lift holding ball to facilitation adductors and less Sidelying Exercises clam shell Side bilateral Resistance AROM Reps/Minutes 2x10 Standing Exercises sit to stands Resistance Tb #2 loop around knees (green ) Reps/Minutes 20 Comments slow pace and contact chair lateral band walk Standing Exercise Name lateral only Resistance TB loop #2 Reps/Minutes 10 ft x3 laps Comments cued level pelvis and upright posture decrease R lat lean Neuro Re-Education Treatment Balance Activities shuttle balance Details shuttle balance Equipment red chains Reps/Duration 10 Comments WBOS, wt shifting f/b improved decrease contact support (CGA -Jer) PT-OP-T Assessment and Plan Start: 11/08/19 07:27 Freq: Status: Active Protocol: Document 12/04/19 09:53 SP (Rec: 12/04/19 11:49 SP [id number]) Physical Therapy Assessment Goals 3 Fire Range Technician Goal (LTG) Pt will perform progressive HEP including balance, postural and LE exercises with I by 01/09/20. LTG Duration 8 weeks 2 Fire Range Technician Goal (LTG) Pt will present with B hip flexion strength to 5/5 by . LTG Duration 8 weeks 1 Fire Range Technician Goal (LTG) Pt will present with FGA score to at least 28/30 to reflect improved balance by 01/09/20. LTG Duration 8 weeks Assessment Summary Assessment Pt tolerated tx well. Changed bridge abd to adduction hold with ball small range, added clam shell B, only lateral band walks with upright posture todecrease R lateral lean during L LE WB with R hip abd with improvedment in self corrections awareness. Pt able to progress balance shuttle balance red clips with cuing COG over ULISES with cuing for trunk righting and decrease R lateral and forward lean noted during band walks forward, step downs and bridge abd so DC'd for now. Pt improved withgait when leavign and stated better self awarness. Physical Therapy Plan Frequency and Duration Frequency of Treatment 2x/Week Duration of Treatment 8 weeks Plan of Care Start Date 11/08/19 Plan of Care End Date 01/09/20 Therapeutic Interventions Therapeutic Interventions Balance Training,Canalithic Repositioning,Coordination Training,Gait Training,Home Exercise Program,Manual Therapy,Neuromuscular Re- education,Patient/Caregiver Education,Self-Care/Home Management,Soft Tissue Mobilization,Taping, Therapeutic Exercises, Vestibular Rehabilitation Modalities Cold Pack/Ice Massage,Electric Stimulation,Hot Packs, Ultrasound Next Visit Focus/Plan Next Note Type Treatment Note Next Visit Plan Assess tolerance to last tx adjustment in HEP, progress balance activities. Continue per PT POC: HEP initiation.
--- NOTE | 2019-12-06 10:25 | PT-OP ANOTE ---
Appointment cancelled in setting of inclement weather
--- NOTE | 2019-12-11 09:00 | PT.OTN ---
Current Diagnoses Unspecified fall, initial encounter (12/11/19) Physical Therapy Treatment Note PT-OP-A Visit Information Start: 11/08/19 07:27 Freq: Status: Active Protocol: Document 12/11/19 08:18 SP (Rec: 12/11/19 09:04 SP [id number]) Out-Patient Physical Therapy Visit Information Visit Information Visit Type Treatment Note Visit Note Medicare, unlimited Visit Start Time 08:18 Visit Stop Time 09:00 Total Visit Minutes 42 Visit Number 7 Number of ENTERPRISE ANALYST Visits 2 PT-OP-B Current Condition Start: 11/08/19 07:27 Freq: Status: Active Protocol: Document 11/08/19 10:35 MB (Rec: 11/08/19 11:21 MB [id number]) Current Condition History of Current Condition Onset Date 2 months ago History of Current Condition Pt reports history of two mechanical falls doing yard work. He has issues when he is walking and not paying attention to where he is going and has had stumbles over curbs. He would like PT for balance. He had 3 bouts of vertigo in the past 3 years and got his neck nikki by chiropractor and it was fixed. He denies neuropathy and leg weakness. He has two missing left toes 3rd and 4th after hunting accident and shooting them. He has been on a statin on 10 years. He has taken Simvastin for 5-6 years. Pt denies pain. He drinks 3-4 cups of coffee a day, social glass of wine or other alcohol and 1-2 glasses of water. He drinks 1-2 cans of diet coke everyday in the summer. Prior Treatments and Tests PT in past after rotator cuff surgery went well PT-OP-C Subjective Start: 11/08/19 07:27 Freq: Status: Active Protocol: Document 12/11/19 08:18 SP (Rec: 12/11/19 09:04 SP [id number]) OP-PT Subjective Patient Comments Patient Comments Pt stated shoulder sore from shoveling last weeks snowy weather. No concerns or changes since last tx, compliant with HEP. PT-OP-D Balance Start: 11/08/19 07:27 Freq: Status: Active Protocol: Document 11/08/19 10:35 MB (Rec: 11/08/19 15:50 MB [id number]) Balance Tests Other Other Balance Tests Performed FGA score 24/30. He has most trouble with tandem gait PT-OP-M Strength Start: 11/08/19 07:27 Freq: Status: Active Protocol: Document 11/08/19 10:35 MB (Rec: 11/08/19 15:50 MB [id number]) Hip Strength Hip Manual Muscle Testing Left Flexion (L2) 3 Fair Abduction 4 Good Right Flexion (L2) 3+ Fair+ Abduction 5 Normal Knee Strength Knee Manual Muscle Testing Left Flexion (S2) 5 Normal Extension (L3) 5 Normal Right Flexion (S2) 5 Normal Extension (L3) 5 Normal Ankle/Foot Strength Ankle and Foot Manual Muscle Testing Left Dorsiflexion (L4) 5 Normal Plantarflexion (S1) 4 Good Right Dorsiflexion (L4) 5 Normal Plantarflexion (S1) 4 Good Toe Strength Toe Manual Muscle Testing Left Great Toe Extension 4 Good Comments 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 Right Great Toe Extension 4 Good PT-OP-Q Treatments Start: 11/08/19 07:27 Freq: Status: Active Protocol: Document 12/11/19 08:18 SP (Rec: 12/11/19 09:04 SP [id number]) Cardio Equipment Recumbent Bicycle Duration (Minutes) 8 Resistance 4 Seat Position 4 Therapeutic Exercises Sidelying Exercises clam shell Side bilateral Resistance AROM Reps/Minutes 2x10 Sitting Exercises QL stretch Sitting Exercise Name L lateral side bend stretch Ql stretch Reps/Minutes 30x3 Standing Exercises scap retraction Reps/Minutes 10 x10 lateral band walk Standing Exercise Name lateral only Resistance TB loop #2 Reps/Minutes 10 ft x3 laps Comments cued level pelvis and upright posture decrease R lat lean Neuro Re-Education Treatment Balance Activities myrna stepping Details Forward Equipment 6 hurdles, blue foam cushions Reps/Duration 10 ft 3 laps each direction Comments cued slow pacing with upright posture, mirror used for posture awareness (floor then cushion) SLS step taps Details single leg stance Surface stable Equipment rail, mirror Reps/Duration 5 min Comments able complete 13 sec R and 18 sec L PT-OP-T Assessment and Plan Start: 11/08/19 07:27 Freq: Status: Active Protocol: Document 12/11/19 08:18 SP (Rec: 12/11/19 09:04 SP [id number]) Physical Therapy Assessment Goals 3 Jail Goal (LTG) Pt will perform progressive HEP including balance, postural and LE exercises with I by 01/09/20. LTG Duration 8 weeks 2 Jail Goal (LTG) Pt will present with B hip flexion strength to 5/5 by . LTG Duration 8 weeks 1 Embedded Engineer Goal (LTG) Pt will present with FGA score to at least 28/30 to reflect improved balance by 01/09/20. LTG Duration 8 weeks Assessment Summary Assessment Pt unable to increase clam shell resistance secondary to recruitment of QL/paraspinals/ HS to continued AROM with good TA facilitation. Incorporated R seated ql stretch and scapular retraction for postural awareness with positive results during gait and balance activity today. Physical Therapy Plan Frequency and Duration Frequency of Treatment 2x/Week Duration of Treatment 8 weeks Plan of Care Start Date 11/08/19 Plan of Care End Date 01/09/20 Therapeutic Interventions Therapeutic Interventions Balance Training,Canalithic Repositioning,Coordination Training,Gait Training,Home Exercise Program,Manual Therapy,Neuromuscular Re- education,Patient/Caregiver Education,Self-Care/Home Management,Soft Tissue Mobilization,Taping, Therapeutic Exercises, Vestibular Rehabilitation Modalities Cold Pack/Ice Massage,Electric Stimulation,Hot Packs, Ultrasound Next Visit Focus/Plan Next Note Type Treatment Note Next Visit Plan Assess added myrna cusion last and added scap retract/Ql stretch for improved posture, progress balance activities. Continue per PT POC: HEP initiation.
--- NOTE | 2019-12-13 10:30 | PT.OTN ---
Current Diagnoses Unspecified fall, initial encounter (12/13/19) Physical Therapy Treatment Note PT-OP-A Visit Information Start: 11/08/19 07:27 Freq: Status: Active Protocol: Document 12/13/19 09:48 MB (Rec: 12/13/19 10:29 MB [id number]) Out-Patient Physical Therapy Visit Information Visit Information Visit Type Treatment Note Visit Note Medicare, unlimited Visit Start Time 09:48 Visit Stop Time 10:28 Total Visit Minutes 40 Visit Number 8 Number of PUBLIC AFFAIRS MANAGER Visits 2 PT-OP-B Current Condition Start: 11/08/19 07:27 Freq: Status: Active Protocol: Document 11/08/19 10:35 MB (Rec: 11/08/19 11:21 MB [id number]) Current Condition History of Current Condition Onset Date 2 months ago History of Current Condition Pt reports history of two mechanical falls doing yard work. He has issues when he is walking and not paying attention to where he is going and has had stumbles over curbs. He would like PT for balance. He had 3 bouts of vertigo in the past 3 years and got his neck nikki by chiropractor and it was fixed. He denies neuropathy and leg weakness. He has two missing left toes 3rd and 4th after hunting accident and shooting them. He has been on a statin on 10 years. He has taken Simvastin for 5-6 years. Pt denies pain. He drinks 3-4 cups of coffee a day, social glass of wine or other alcohol and 1-2 glasses of water. He drinks 1-2 cans of diet coke everyday in the summer. Prior Treatments and Tests PT in past after rotator cuff surgery went well PT-OP-C Subjective Start: 11/08/19 07:27 Freq: Status: Active Protocol: Document 12/13/19 09:48 MB (Rec: 12/13/19 10:29 MB [id number]) OP-PT Subjective Patient Comments Patient Comments Pt states that he is leaving for [place] on Wednesday. He will be gone for two weeks. He would like to continue with PT when he returns. PT-OP-D Balance Start: 11/08/19 07:27 Freq: Status: Active Protocol: Document 11/08/19 10:35 MB (Rec: 11/08/19 15:50 MB [id number]) Balance Tests Other Other Balance Tests Performed FGA score 24/30. He has most trouble with tandem gait PT-OP-M Strength Start: 11/08/19 07:27 Freq: Status: Active Protocol: Document 11/08/19 10:35 MB (Rec: 11/08/19 15:50 MB [id number]) Hip Strength Hip Manual Muscle Testing Left Flexion (L2) 3 Fair Abduction 4 Good Right Flexion (L2) 3+ Fair+ Abduction 5 Normal Knee Strength Knee Manual Muscle Testing Left Flexion (S2) 5 Normal Extension (L3) 5 Normal Right Flexion (S2) 5 Normal Extension (L3) 5 Normal Ankle/Foot Strength Ankle and Foot Manual Muscle Testing Left Dorsiflexion (L4) 5 Normal Plantarflexion (S1) 4 Good Right Dorsiflexion (L4) 5 Normal Plantarflexion (S1) 4 Good Toe Strength Toe Manual Muscle Testing Left Great Toe Extension 4 Good Comments 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 Right Great Toe Extension 4 Good PT-OP-Q Treatments Start: 11/08/19 07:27 Freq: Status: Active Protocol: Document 12/13/19 09:48 MB (Rec: 12/13/19 10:29 MB [id number]) Cardio Equipment Recumbent Bicycle Duration (Minutes) 8 Resistance 8 Therapeutic Exercises Sitting Exercises QL stretch Reps/Minutes 30 sec x2 reps, performed B Standing Exercises sit to stands Resistance Level 1 band Reps/Minutes 20 Comments slow pace and contact chair lateral band walk Standing Exercise Name lateral only Resistance Level 1 band Reps/Minutes 10 ft x3 laps Comments UE support, upright posture, cues Neuro Re-Education Treatment Balance Activities Toe taps forward Comments 10 reps forward x2 without UE support, cues for speed SLS Comments R SLS 19 sec; left foot 17 sec . Work up to 30 sec at home Tandem standing B Comments L foot behind 37 sec; right foot behind 42 sec. 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 Cues for standing upright and scapular retraction. Increase goal for 45 sec at home PT-OP-T Assessment and Plan Start: 11/08/19 07:27 Freq: Status: Active Protocol: Document 12/13/19 09:48 MB (Rec: 12/13/19 10:29 MB [id number]) Physical Therapy Assessment Goals 3 Wet Trimmer Goal (LTG) Pt will perform progressive HEP including balance, postural and LE exercises with I by 01/09/20. LTG Duration 8 weeks 2 Senior Living Goal (LTG) Pt will present with B hip flexion strength to 5/5 by . LTG Duration 8 weeks 1 Senior Living Goal (LTG) Pt will present with FGA score to at least 28/30 to reflect improved balance by 01/09/20. LTG Duration 8 weeks Assessment Summary Assessment D/cd side step up d/t pt can only due one direction d/t 1 rail at home and do not want to throw off alignment. Also d /cd forward monster walk with band and bridging exercises d/ t reports of back pain. Pt leaving for [place] for 2 weeks and this will stop therapy for that time. Will con't upon return, reassess when needed. Ongoing quick gait today with balance training. Physical Therapy Plan Frequency and Duration Frequency of Treatment 2x/Week Duration of Treatment 8 weeks Plan of Care Start Date 11/08/19 Plan of Care End Date 01/09/20 Therapeutic Interventions Therapeutic Interventions Balance Training,Canalithic Repositioning,Coordination Training,Gait Training,Home Exercise Program,Manual Therapy,Neuromuscular Re- education,Patient/Caregiver Education,Self-Care/Home Management,Soft Tissue Mobilization,Taping, Therapeutic Exercises, Vestibular Rehabilitation Modalities Cold Pack/Ice Massage,Electric Stimulation,Hot Packs, Ultrasound Next Visit Focus/Plan Next Note Type Treatment Note Next Visit Plan Review HEP and con't balance exercises.
--- NOTE | 2020-01-01 09:43 | PT.OTN ---
Current Diagnoses Unspecified fall, initial encounter (01/01/20) Physical Therapy Treatment Note PT-OP-A Visit Information Start: 11/08/19 07:27 Freq: Status: Active Protocol: Document 01/01/20 09:01 MB (Rec: 01/01/20 09:42 MB [id number]) Out-Patient Physical Therapy Visit Information Visit Information Visit Type Treatment Note Visit Note Medicare, unlimited Visit Start Time 09:01 Visit Stop Time 09:42 Total Visit Minutes 41 Visit Number 9, start 12/01 next treatment Number of HEALTH CONCIERGE Visits 0 PT-OP-B Current Condition Start: 11/08/19 07:27 Freq: Status: Active Protocol: Document 11/08/19 10:35 MB (Rec: 11/08/19 11:21 MB [id number]) Current Condition History of Current Condition Onset Date 2 months ago History of Current Condition Pt reports history of two mechanical falls doing yard work. He has issues when he is walking and not paying attention to where he is going and has had stumbles over curbs. He would like PT for balance. He had 3 bouts of vertigo in the past 3 years and got his neck nikki by chiropractor and it was fixed. He denies neuropathy and leg weakness. He has two missing left toes 3rd and 4th after hunting accident and shooting them. He has been on a statin on 10 years. He has taken Simvastin for 5-6 years. Pt denies pain. He drinks 3-4 cups of coffee a day, social glass of wine or other alcohol and 1-2 glasses of water. He drinks 1-2 cans of diet coke everyday in the summer. Prior Treatments and Tests PT in past after rotator cuff surgery went well PT-OP-C Subjective Start: 11/08/19 07:27 Freq: Status: Active Protocol: Document 01/01/20 09:01 MB (Rec: 01/01/20 09:42 MB [id number]) OP-PT Subjective Patient Comments Patient Comments Pt states that he feels that therapy is helpful. He feels that he is not as dizzy as he has been in the past. He is taking Meclizine and it is helpful. He is taking it once daily at night time. Pt has not had falls since starting PT. PT-OP-D Balance Start: 12/18/19 07:27 Freq: Status: Active Protocol: Document 11/08/19 10:35 MB (Rec: 11/08/19 15:50 MB [id number]) Balance Tests Other Other Balance Tests Performed FGA score 24/30. He has most trouble with tandem gait PT-OP-M Strength Start: 11/08/19 07:27 Freq: Status: Active Protocol: Document 11/08/19 10:35 MB (Rec: 11/08/19 15:50 MB [id number]) Hip Strength Hip Manual Muscle Testing Left Flexion (L2) 3 Fair Abduction 4 Good Right Flexion (L2) 3+ Fair+ Abduction 5 Normal Knee Strength Knee Manual Muscle Testing Left Flexion (S2) 5 Normal Extension (L3) 5 Normal Right Flexion (S2) 5 Normal Extension (L3) 5 Normal Ankle/Foot Strength Ankle and Foot Manual Muscle Testing Left Dorsiflexion (L4) 5 Normal Plantarflexion (S1) 4 Good Right Dorsiflexion (L4) 5 Normal Plantarflexion (S1) 4 Good Toe Strength Toe Manual Muscle Testing Left Great Toe Extension 4 Good Comments 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 Right Great Toe Extension 4 Good PT-OP-Q Treatments Start: 11/08/19 07:27 Freq: Status: Active Protocol: Document 01/01/20 09:01 MB (Rec: 01/01/20 09:42 MB [id number]) Therapeutic Exercises Sitting Exercises QL stretch Reps/Minutes 3 reps, 19 sec hold, B Standing Exercises scap retraction Comments 10 reps, hold a few sec sit to stands Comments 30 sec: 11 reps lateral band walk Comments Hand slide on wall, 4 laps, level 1 band Neuro Re-Education Treatment Balance Activities Functional Gait Assessment Comments FGA score improved to 25/30 today SLS Comments R SLS 6 sec; L SLS 1 sec and pt has to hold on to stop fall Tandem standing B Comments B Tandem 45 sec today PT-OP-T Assessment and Plan Start: 11/08/19 07:27 Freq: Status: Active Protocol: Document 01/01/20 09:01 MB (Rec: 01/01/20 09:42 MB [id number]) Physical Therapy Assessment Goals 5 Correction Goal (LTG) Pt will perform 15 reps sit to stand without UE support in 30 sec by 02/02/2020 to improve safety with functional transfers. LTG Duration 6 weeks 4 Manager Epic Goal (LTG) Pt will deny falls for 6 weeks by 02/02/2020. LTG Duration 6 weeks 3 Correction Goal (LTG) Pt will perform progressive HEP including balance, postural and LE exercises with I by 02/02/2020. 01/01/2020: Pt is performing progressive HEP. LTG Duration 6 weeks 2 Manager Epic Goal (LTG) Pt will present with B hip flexion and abduction strength to 5/5 by 02/02/2020. 01/01/2020: R hip flexion 5/5; B hip abduction and left hip flexion 4/5. LTG Duration 6 weeks 1 Correction Goal (LTG) Pt will present with FGA score to at least 28/30 to reflect improved balance by 02/02/2020. 01/01/2020: FGA score reflects 25/30 this date. LTG Duration 6 weeks Assessment Summary Assessment Pt has progressed towards all PT goals since starting PT. These include performance of HEP, FGA score and LE strengthening. He has less dizziness and no falls since starting PT. Physical Therapy Plan Frequency and Duration Frequency of Treatment 2x/Week Duration of Treatment 6 weeks Plan of Care Start Date 01/01/20 Plan of Care End Date 02/02/20 Therapeutic Interventions Therapeutic Interventions Balance Training,Canalithic Repositioning,Coordination Training,Gait Training,Home Exercise Program,Manual Therapy,Neuromuscular Re- education,Patient/Caregiver Education,Self-Care/Home Management,Soft Tissue Mobilization,Taping, Therapeutic Exercises, Vestibular Rehabilitation Modalities Cold Pack/Ice Massage,Electric Stimulation,Hot Packs, Ultrasound Next Visit Focus/Plan Next Note Type Treatment Note Next Visit Plan Review HEP and con't balance exercises.
--- NOTE | 2020-01-01 09:44 | PT.OPPOC ---
Physical, Occupational & Speech Therapy At [facility] Current Diagnoses Unspecified fall, initial encounter (01/01/20) Visit Care Team Role Provider Type Tomi Pathak MD Attending Provider Physician Primary Care Provider Specialty: Internal Medicine Address: [address] [place] [address], [address], [address] Email: [email or web address] Plan Of Care PT-OP-T Assessment and Plan Start: 11/08/19 07:27 Freq: Status: Active Protocol: Document 01/01/20 09:01 MB (Rec: 01/01/20 09:42 MB [id number]) Physical Therapy Assessment Goals 5 Shelter Goal (LTG) Pt will perform 15 reps sit to stand without UE support in 30 sec by 02/02/2020 to improve safety with functional transfers. LTG Duration 6 weeks 4 Lay Out Machine Operator Goal (LTG) Pt will deny falls for 6 weeks by 02/02/2020. LTG Duration 6 weeks 3 Lay Out Machine Operator Goal (LTG) Pt will perform progressive HEP including balance, postural and LE exercises with I by 02/02/2020. 01/01/2020: Pt is performing progressive HEP. LTG Duration 6 weeks 2 Shelter Goal (LTG) Pt will present with B hip flexion and abduction strength to 5/5 by 02/02/2020. 01/01/2020: R hip flexion 5/5; B hip abduction and left hip flexion 4/5. LTG Duration 6 weeks 1 Shelter Goal (LTG) Pt will present with FGA score to at least 28/30 to reflect improved balance by 02/02/2020. 01/01/2020: FGA score reflects 25/30 this date. LTG Duration 6 weeks Assessment Summary Assessment Pt has progressed towards all PT goals since starting PT. These include performance of HEP, FGA score and LE strengthening. He has less dizziness and no falls since starting PT. Physical Therapy Plan Frequency and Duration Frequency of Treatment 2x/Week Duration of Treatment 6 weeks Plan of Care Start Date 01/01/20 Plan of Care End Date 02/02/20 Therapeutic Interventions Therapeutic Interventions Balance Training,Canalithic Repositioning,Coordination Training,Gait Training,Home Exercise Program,Manual Therapy,Neuromuscular Re- education,Patient/Caregiver Education,Self-Care/Home Management,Soft Tissue Mobilization,Taping, Therapeutic Exercises, Vestibular Rehabilitation Modalities Cold Pack/Ice Massage,Electric Stimulation,Hot Packs, Ultrasound Next Visit Focus/Plan Next Note Type Treatment Note Next Visit Plan Review HEP and con't balance exercises. Plan of Care Dates Plan of Care Start Date 11/08/19 Plan of Care End Date 01/09/20 Electronically Signed by: Shyann Esteban, PT 01/01/20 0944 Please Sign and Return: I have reviewed this Plan of Care and certify that the skilled therapy services above are required to meet the patient?s needs. Physician Signature Date Printed Name and Credentials Clinical Instructor Signature Printed Name and Credentials
--- NOTE | 2020-01-02 15:51 | PT-OP ANOTE ---
Pt appointment cancelled tomorrow and PT reviews chart and pt adm for stroke after dizziness and arm weakness. PT calls pt's cell and he states that he is doing better. Per EMR, he has had a TIA though MRI head reports stroke right cope radiata. PT and pt agree to keep outpatient PT appointment on 01/09/2020 but that pt will need to get d/c order from hospital doctor or return to PCP with con't order before appointment on the . Con't to monitor.
--- NOTE | 2020-01-09 10:50 | PT.OTRE ---
Current Diagnoses Dizziness and giddiness (01/09/20) Unspecified fall, initial encounter (01/09/20) Past Medical History (Last Reviewed 01/02/20 @ 13:06 by Dee Deluca MD) Arthritis (Chronic) Colon polyps (Resolved 2000) Diverticular disease (Chronic) Hearing loss (Chronic) History of basal cell carcinoma (BCC) (Resolved) History of SCC (squamous cell carcinoma) of skin (Resolved) Hyperlipidemia (Chronic) Vertigo (Resolved 2006) Surgical History (Last Reviewed 01/02/20 @ 13:07 by Dee Deluca MD) History of basal cell carcinoma (BCC) excision (Resolved) History of colonoscopy with polypectomy (Resolved 10/24/13) History of colonoscopy with polypectomy (Resolved 05/24/07) History of colonoscopy with polypectomy (Resolved 01/24/04) History of squamous cell carcinoma excision (Resolved) Status post amputation of extremity (Resolved) Status post rotator cuff repair (Resolved 2005) Visit Care Team Role Provider Type Tomi Pathak MD Attending Provider Physician Primary Care Provider Specialty: Internal Medicine Address: [address] [place] [address], [address] [place] [address], [facility] Email: [email or web address] Physical Therapy Re-Evaluation PT-OP-A Visit Information Start: 11/08/19 07:27 Freq: Status: Active Protocol: Document 01/09/20 08:14 MB (Rec: 01/09/20 08:55 MB [id number]) Out-Patient Physical Therapy Visit Information Visit Information Visit Type Re-Evaluation Visit Note Medicare, unlimited Visit Start Time 08:14 Visit Stop Time 08:54 Total Visit Minutes 40 Visit Number 1/10 Number of SOFTWARE DESIGNER Visits 0 PT-OP-B Current Condition Start: 11/08/19 07:27 Freq: Status: Active Protocol: Document 11/08/19 10:35 MB (Rec: 11/08/19 11:21 MB [id number]) Current Condition History of Current Condition Onset Date 2 months ago History of Current Condition Pt reports history of two mechanical falls doing yard work. He has issues when he is walking and not paying attention to where he is going and has had stumbles over curbs. He would like PT for balance. He had 3 bouts of vertigo in the past 3 years and got his neck nikki by chiropractor and it was fixed. He denies neuropathy and leg weakness. He has two missing left toes 3rd and 4th after hunting accident and shooting them. He has been on a statin on 10 years. He has taken Simvastin for 5-6 years. Pt denies pain. He drinks 3-4 cups of coffee a day, social glass of wine or other alcohol and 1-2 glasses of water. He drinks 1-2 cans of diet coke everyday in the summer. Prior Treatments and Tests PT in past after rotator cuff surgery went well PT-OP-C Subjective Start: 11/08/19 07:27 Freq: Status: Active Protocol: Document 01/09/20 08:14 MB (Rec: 01/09/20 08:55 MB [id number]) OP-PT Subjective Patient Comments Patient Comments Pt denies falls since discharge home after stroke. He has not been using walker in the house. He has been using the rail on the steps. He denies further dizziness. He has a new statin and is taking a baby aspirin. PT-OP-D Balance Start: 11/08/19 07:27 Freq: Status: Active Protocol: Document 01/09/20 08:14 MB (Rec: 01/09/20 10:48 MB [id number]) Balance Tests Other Other Balance Tests Performed FGA score is 18/30. His overall darrel since stroke is slower and this appears safer. PT-OP-M Strength Start: 11/08/19 07:27 Freq: Status: Active Protocol: Document 01/09/20 08:14 MB (Rec: 01/09/20 10:48 MB [id number]) Shoulder Strength Shoulder Manual Muscle Testing Left Flexion 5 Normal Abduction (C5) 5 Normal External Rotation 4 Good Internal Rotation 5 Normal Comments Standing Right Flexion 4 Good Adduction 5 Normal External Rotation 4 Good Internal Rotation 5 Normal Comments Standing Elbow/Forearm Strength Elbow and Forearm Manual Muscle Testing Left Flexion (C6) 4 Good Extension (C7) 5 Normal Comments Standing Right Flexion (C6) 5 Normal Extension (C7) 5 Normal Comments Standing Hip Strength Hip Manual Muscle Testing Left Flexion (L2) 4 Good Comments Sitting Right Flexion (L2) 5 Normal Comments Sitting Knee Strength Knee Manual Muscle Testing Left Flexion (S2) 5 Normal Extension (L3) 5 Normal Right Flexion (S2) 5 Normal Extension (L3) 5 Normal Ankle/Foot Strength Ankle and Foot Manual Muscle Testing Left Dorsiflexion (L4) 5 Normal Right Dorsiflexion (L4) 5 Normal Toe Strength Toe Manual Muscle Testing Left Great Toe Extension 4 Good Comments 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 Right Great Toe Extension 4 Good PT-OP-Q Treatments Start: 11/08/19 07:27 Freq: Status: Active Protocol: Document 01/01/20 09:01 MB (Rec: 01/01/20 09:42 MB [id number]) Therapeutic Exercises Sitting Exercises QL stretch Reps/Minutes 3 reps, 19 sec hold, B Standing Exercises scap retraction Comments 10 reps, hold a few sec sit to stands Comments 30 sec: 11 reps lateral band walk Comments Hand slide on wall, 4 laps, level 1 band Neuro Re-Education Treatment Balance Activities Functional Gait Assessment Comments FGA score improved to 25/30 today SLS Comments R SLS 6 sec; L SLS 1 sec and pt has to hold on to stop fall Tandem standing B Comments B Tandem 45 sec today PT-OP-T Assessment and Plan Start: 11/08/19 07:27 Freq: Status: Active Protocol: Document 01/09/20 08:14 MB (Rec: 01/09/20 08:55 MB [id number]) Physical Therapy Assessment Goals 5 Skilled Nursing Goal (LTG) Pt will perform 15 reps sit to stand without UE support in 30 sec by 02/09/2020 to improve safety with functional transfers. LTG Duration 6 weeks 4 Hatchery Employee Goal (LTG) Pt will deny falls for 6 weeks by 02/09/2020. 01/09/2020: Pt denies falls since hospital adm LTG Duration 6 weeks 3 Hatchery Employee Goal (LTG) Pt will perform progressive HEP including balance, postural and LE exercises with I by 02/09/2020. 01/09/2020: Pt is performing progressive HEP. LTG Duration 6 weeks 2 Hatchery Employee Goal (LTG) Pt will present with B hip flexion and abduction strength to 5/5 by 02/09/2020. 01/09/2020: Sitting hip flexion right 5/5, left 4/5 LTG Duration 6 weeks 1 Skilled Nursing Goal (LTG) Pt will present with FGA score to at least 28/30 to reflect improved balance by 02/09/2020. 01/01/2020: FGA score reflects 18/30 this date. LTG Duration 6 weeks Assessment Summary Assessment He presents with dysdiadochokineesia with rapid supination and pronation left hand. Pt went to ED 01/02/2020 after waking up with dizziness and left arm weakness. MRI revealed small acute infarct right cope radiata and negative neck CTA. ECHO has some changes and pt to follow-up with Dr. Pathak . He has not been using walker at home. Pt's gait is much slower than pre-stroke. This appears safer in general than his previous gait. Pt's LE strength is similar to pre- stroke, with more weakness in left hip. He does have some weakness in both arms. His FGA score is mildly worse than pre-stroke. He presents with fall-type step with descending steps, poor descent control. Pt leans to the right with gait, has spinal changes, known left foot changes after missing second and third toes after injury. Pt does have some cognitive changes, trouble following commands and pt and report he failed cognitive testing in hospital stay. will be transporting him to appointments. BP and HR in LE this date: 123/80, 98. Con't PT per original POC for balance and strengthening. Physical Therapy Plan Frequency and Duration Frequency of Treatment 2x/Week Duration of Treatment 6 weeks Plan of Care Start Date 01/09/20 Plan of Care End Date 02/09/20 Therapeutic Interventions Therapeutic Interventions Balance Training,Canalithic Repositioning,Coordination Training,Gait Training,Home Exercise Program,Manual Therapy,Neuromuscular Re- education,Patient/Caregiver Education,Self-Care/Home Management,Soft Tissue Mobilization,Taping, Therapeutic Exercises, Vestibular Rehabilitation Modalities Cold Pack/Ice Massage,Electric Stimulation,Hot Packs, Ultrasound Other Referrals/Consults Referrals/Consults Recommended ROAD ENGINEER consult for cognitive training Next Visit Focus/Plan Next Note Type Treatment Note Next Visit Plan Review HEP and con't balance exercises.
--- NOTE | 2020-01-09 10:50 | PT.OPPOC ---
Physical, Occupational & Speech Therapy At [facility] Current Diagnoses Dizziness and giddiness (01/09/20) Unspecified fall, initial encounter (01/09/20) Visit Care Team Role Provider Type Tomi Pathak MD Attending Provider Physician Primary Care Provider Specialty: Internal Medicine Address: [address] [place] [address], [address], [address] Email: [email or web address] Plan Of Care PT-OP-T Assessment and Plan Start: 11/08/19 07:27 Freq: Status: Active Protocol: Document 01/09/20 08:14 MB (Rec: 01/09/20 08:55 MB [id number]) Physical Therapy Assessment Goals 5 Auto Body Repairer Goal (LTG) Pt will perform 15 reps sit to stand without UE support in 30 sec by 02/09/2020 to improve safety with functional transfers. LTG Duration 6 weeks 4 Auto Body Repairer Goal (LTG) Pt will deny falls for 6 weeks by 02/09/2020. 01/09/2020: Pt denies falls since hospital adm LTG Duration 6 weeks 3 Auto Body Repairer Goal (LTG) Pt will perform progressive HEP including balance, postural and LE exercises with I by 02/09/2020. 01/09/2020: Pt is performing progressive HEP. LTG Duration 6 weeks 2 Prison Goal (LTG) Pt will present with B hip flexion and abduction strength to 5/5 by 02/09/2020. 01/09/2020: Sitting hip flexion right 5/5, left 4/5 LTG Duration 6 weeks 1 Auto Body Repairer Goal (LTG) Pt will present with FGA score to at least 28/30 to reflect improved balance by 02/09/2020. 01/01/2020: FGA score reflects 18/30 this date. LTG Duration 6 weeks Assessment Summary Assessment He presents with dysdiadochokineesia with rapid supination and pronation left hand. Pt went to ED 01/02/2020 after waking up with dizziness and left arm weakness. MRI revealed small acute infarct right cope radiata and negative neck CTA. ECHO has some changes and pt to follow-up with Dr. Pathak . He has not been using walker at home. Pt's gait is much slower than pre-stroke. This appears safer in general than his previous gait. Pt's LE strength is similar to pre- stroke, with more weakness in left hip. He does have some weakness in both arms. His FGA score is mildly worse than pre-stroke. He presents with fall-type step with descending steps, poor descent control. Pt leans to the right with gait, has spinal changes, known left foot changes after missing second and third toes after injury. Pt does have some cognitive changes, trouble following commands and pt and report he failed cognitive testing in hospital stay. will be transporting him to appointments. BP and HR in LE this date: 123/80, 98. Con't PT per original POC for balance and strengthening. Physical Therapy Plan Frequency and Duration Frequency of Treatment 2x/Week Duration of Treatment 6 weeks Plan of Care Start Date 01/09/20 Plan of Care End Date 02/09/20 Therapeutic Interventions Therapeutic Interventions Balance Training,Canalithic Repositioning,Coordination Training,Gait Training,Home Exercise Program,Manual Therapy,Neuromuscular Re- education,Patient/Caregiver Education,Self-Care/Home Management,Soft Tissue Mobilization,Taping, Therapeutic Exercises, Vestibular Rehabilitation Modalities Cold Pack/Ice Massage,Electric Stimulation,Hot Packs, Ultrasound Other Referrals/Consults Referrals/Consults Recommended SURFACING MACHINE OPERATOR consult for cognitive training Next Visit Focus/Plan Next Note Type Treatment Note Next Visit Plan Review HEP and con't balance exercises. Plan of Care Dates Plan of Care Start Date 01/09/20 Plan of Care End Date 02/09/20 Electronically Signed by: Shyann Esteban PT 01/09/20 1894 Please Sign and Return: I have reviewed this Plan of Care and certify that the skilled therapy services above are required to meet the patient?s needs. Physician Signature Date Printed Name and Credentials Clinical Instructor Signature Printed Name and Credentials
--- NOTE | 2020-01-12 09:45 | PT.OTN ---
Current Diagnoses Dizziness and giddiness (01/12/20) Unspecified fall, initial encounter (01/12/20) Physical Therapy Treatment Note PT-OP-A Visit Information Start: 11/08/19 07:27 Freq: Status: Active Protocol: Document 01/12/20 09:45 DLM (Rec: 01/12/20 12:01 DLM [id number]) Out-Patient Physical Therapy Visit Information Visit Information Visit Type Treatment Note Visit Start Time 09:45 Visit Stop Time 10:31 Total Visit Minutes 46 Visit Number 01/01 Number of ROOM SERVICE MANAGER Visits 0 Evaluation Information Evaluation Date 01/09/20 Precautions Precautions New CVA 01/02/20 PT-OP-B Current Condition Start: 11/08/19 07:27 Freq: Status: Active Protocol: Document 11/08/19 10:35 MB (Rec: 11/08/19 11:21 MB [id number]) Current Condition History of Current Condition Onset Date 2 months ago History of Current Condition Pt reports history of two mechanical falls doing yard work. He has issues when he is walking and not paying attention to where he is going and has had stumbles over curbs. He would like PT for balance. He had 3 bouts of vertigo in the past 3 years and got his neck nikki by chiropractor and it was fixed. He denies neuropathy and leg weakness. He has two missing left toes 3rd and 4th after hunting accident and shooting them. He has been on a statin on 10 years. He has taken Simvastin for 5-6 years. Pt denies pain. He drinks 3-4 cups of coffee a day, social glass of wine or other alcohol and 1-2 glasses of water. He drinks 1-2 cans of diet coke everyday in the summer. Prior Treatments and Tests PT in past after rotator cuff surgery went well PT-OP-C Subjective Start: 11/08/19 07:27 Freq: Status: Active Protocol: Document 01/12/20 09:45 DLM (Rec: 01/12/20 12:01 DLM [id number]) OP-PT Subjective Patient Comments Patient Comments He reports feeling better. He had an Echo that came back ok. He has no pain. Patient Reported Progress Improving PT-OP-D Balance Start: 11/08/19 07:27 Freq: Status: Active Protocol: Document 01/09/20 08:14 MB (Rec: 01/09/20 10:48 MB [id number]) Balance Tests Other Other Balance Tests Performed FGA score is 18/30. His overall darrel since stroke is slower and this appears safer. PT-OP-M Strength Start: 11/08/19 07:27 Freq: Status: Active Protocol: Document 01/09/20 08:14 MB (Rec: 01/09/20 10:48 MB [id number]) Shoulder Strength Shoulder Manual Muscle Testing Left Flexion 5 Normal Abduction (C5) 5 Normal External Rotation 4 Good Internal Rotation 5 Normal Comments Standing Right Flexion 4 Good Adduction 5 Normal External Rotation 4 Good Internal Rotation 5 Normal Comments Standing Elbow/Forearm Strength Elbow and Forearm Manual Muscle Testing Left Flexion (C6) 4 Good Extension (C7) 5 Normal Comments Standing Right Flexion (C6) 5 Normal Extension (C7) 5 Normal Comments Standing Hip Strength Hip Manual Muscle Testing Left Flexion (L2) 4 Good Comments Sitting Right Flexion (L2) 5 Normal Comments Sitting Knee Strength Knee Manual Muscle Testing Left Flexion (S2) 5 Normal Extension (L3) 5 Normal Right Flexion (S2) 5 Normal Extension (L3) 5 Normal Ankle/Foot Strength Ankle and Foot Manual Muscle Testing Left Dorsiflexion (L4) 5 Normal Right Dorsiflexion (L4) 5 Normal Toe Strength Toe Manual Muscle Testing Left Great Toe Extension 4 Good Comments 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 Right Great Toe Extension 4 Good PT-OP-Q Treatments Start: 11/08/19 07:27 Freq: Status: Active Protocol: Document 01/12/20 09:45 DLM (Rec: 01/12/20 12:01 DLM [email or web address]) Cardio Equipment Recumbent Bicycle Duration (Minutes) 6 Resistance 5 Other pt shows decreased attention to left foot & needed cuing to get it on pedal Therapeutic Exercises Sitting Exercises QL stretch Reps/Minutes 2 reps Standing Exercises sit to stands Standing Exercise Name sit-stand without UE support Resistance L1 exercise band around knees Reps/Minutes 10 reps lateral band walk Resistance L1 exercise band around knees Equipment Used in parallel bars Neuro Re-Education Treatment Balance Activities Toe taps forward Details Placing feet on/off 6 in step Equipment in parallel bars Comments noted pt turns to left during this activity without awareness SLS Equipment in parallel bars Reps/Duration 5 reps each LE Tandem standing B Surface level Equipment in parallel bars Reps/Duration 5 reps each side stationary stance on foam Details EO/EC/head motions/UE motions Surface anderson foam mat Equipment in parallel bars high knee stepping Equipment in parallel bars Reps/Duration 4 laps tandem Details tandem gait Surface level Equipment in parallel bars Reps/Duration 6 laps Coordination Activities UE pronation/Supination Details bilateral UE's together Equipment seated with UE's on legs Speed slow Reps/Duration 3 sets Comments cuing for full ROM and coordination, he shows decreased awareness of incoordination Toe Tapping Details seated, alternating feet, DF/ PF Speed mod to fast Reps/Duration 3 sets Comments cuing for full active DF ROM on left, he shows decreased awareness of deficits PT-OP-T Assessment and Plan Start: 11/08/19 07:27 Freq: Status: Active Protocol: Document 01/12/20 09:45 DLM (Rec: 01/12/20 12:01 DLM [email or web address]) Physical Therapy Assessment Goals 5 Systems Requirements Planner Goal (LTG) Pt will perform 15 reps sit to stand without UE support in 30 sec by 02/09/2020 to improve safety with functional transfers. LTG Duration 6 weeks 4 Systems Requirements Planner Goal (LTG) Pt will deny falls for 6 weeks by 02/09/2020. 01/09/2020: Pt denies falls since hospital adm LTG Duration 6 weeks 3 Halfway Goal (LTG) Pt will perform progressive HEP including balance, postural and LE exercises with I by 02/09/2020. 01/09/2020: Pt is performing progressive HEP. LTG Duration 6 weeks 2 Halfway Goal (LTG) Pt will present with B hip flexion and abduction strength to 5/5 by 02/09/2020. 01/09/2020: Sitting hip flexion right 5/5, left 4/5 LTG Duration 6 weeks 1 Halfway Goal (LTG) Pt will present with FGA score to at least 28/30 to reflect improved balance by 02/09/2020. 01/01/2020: FGA score reflects 18/30 this date. LTG Duration 6 weeks Progress Towards Goals Progress Towards Goals Progressing Toward Goals Assessment Summary Assessment Pt continues to present with new deficits related to his recent CVA. Noted decreased attention to left foot when getting on the stationary bike . He tolerated treatment session well over-all. Pt continues to have a slower gait pattern and his is driving him to his therapy appointments. Physical Therapy Plan Frequency and Duration Frequency of Treatment 2x/Week Duration of Treatment 6 weeks Plan of Care Start Date 01/09/20 Plan of Care End Date 02/09/20 Therapeutic Interventions Therapeutic Interventions Balance Training,Canalithic Repositioning,Coordination Training,Gait Training,Home Exercise Program,Manual Therapy,Neuromuscular Re- education,Patient/Caregiver Education,Self-Care/Home Management,Soft Tissue Mobilization,Taping, Therapeutic Exercises, Vestibular Rehabilitation Modalities Cold Pack/Ice Massage,Electric Stimulation,Hot Packs, Ultrasound Other Referrals/Consults Referrals/Consults Recommended SAND CAR WORKER consult for cognitive training Next Visit Focus/Plan Next Note Type Treatment Note Next Visit Plan Continue balance retraining, monitor left inattention
--- NOTE | 2020-01-16 08:58 | PT.OTN ---
Current Diagnoses Dizziness and giddiness (01/16/20) Unspecified fall, initial encounter (01/16/20) Physical Therapy Treatment Note PT-OP-A Visit Information Start: 11/08/19 07:27 Freq: Status: Active Protocol: Document 01/16/20 08:17 MB (Rec: 01/16/20 08:30 MB [id number]) Out-Patient Physical Therapy Visit Information Visit Information Visit Type Treatment Note Visit Start Time 08:17 Visit Stop Time 08:57 Total Visit Minutes 40 Visit Number 3/ Number of CARE ADVOCATE Visits 0 Precautions Precautions New CVA 01/02/20 PT-OP-B Current Condition Start: 11/08/19 07:27 Freq: Status: Active Protocol: Document 11/08/19 10:35 MB (Rec: 11/08/19 11:21 MB [id number]) Current Condition History of Current Condition Onset Date 2 months ago History of Current Condition Pt reports history of two mechanical falls doing yard work. He has issues when he is walking and not paying attention to where he is going and has had stumbles over curbs. He would like PT for balance. He had 3 bouts of vertigo in the past 3 years and got his neck nikki by chiropractor and it was fixed. He denies neuropathy and leg weakness. He has two missing left toes 3rd and 4th after hunting accident and shooting them. He has been on a statin on 10 years. He has taken Simvastin for 5-6 years. Pt denies pain. He drinks 3-4 cups of coffee a day, social glass of wine or other alcohol and 1-2 glasses of water. He drinks 1-2 cans of diet coke everyday in the summer. Prior Treatments and Tests PT in past after rotator cuff surgery went well PT-OP-C Subjective Start: 11/08/19 07:27 Freq: Status: Active Protocol: Document 01/16/20 08:17 MB (Rec: 01/16/20 08:30 MB [id number]) OP-PT Subjective Patient Comments Patient Comments Pt states that things are going well. He has not had falls. [place]. PT-OP-D Balance Start: 11/08/19 07:27 Freq: Status: Active Protocol: Document 01/09/20 08:14 MB (Rec: 01/09/20 10:48 MB [id number]) Balance Tests Other Other Balance Tests Performed FGA score is 18/30. His overall darrel since stroke is slower and this appears safer. PT-OP-M Strength Start: 11/08/19 07:27 Freq: Status: Active Protocol: Document 01/09/20 08:14 MB (Rec: 01/09/20 10:48 MB [id number]) Shoulder Strength Shoulder Manual Muscle Testing Left Flexion 5 Normal Abduction (C5) 5 Normal External Rotation 4 Good Internal Rotation 5 Normal Comments Standing Right Flexion 4 Good Adduction 5 Normal External Rotation 4 Good Internal Rotation 5 Normal Comments Standing Elbow/Forearm Strength Elbow and Forearm Manual Muscle Testing Left Flexion (C6) 4 Good Extension (C7) 5 Normal Comments Standing Right Flexion (C6) 5 Normal Extension (C7) 5 Normal Comments Standing Hip Strength Hip Manual Muscle Testing Left Flexion (L2) 4 Good Comments Sitting Right Flexion (L2) 5 Normal Comments Sitting Knee Strength Knee Manual Muscle Testing Left Flexion (S2) 5 Normal Extension (L3) 5 Normal Right Flexion (S2) 5 Normal Extension (L3) 5 Normal Ankle/Foot Strength Ankle and Foot Manual Muscle Testing Left Dorsiflexion (L4) 5 Normal Right Dorsiflexion (L4) 5 Normal Toe Strength Toe Manual Muscle Testing Left Great Toe Extension 4 Good Comments 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 Right Great Toe Extension 4 Good PT-OP-Q Treatments Start: 11/08/19 07:27 Freq: Status: Active Protocol: Document 01/16/20 08:17 MB (Rec: 01/16/20 08:30 MB [id number]) Cardio Equipment Recumbent Bicycle Duration (Minutes) 7 Resistance 6 Other Pt is able to lift left leg and foot well onto pedal Therapeutic Exercises Sitting Exercises Ankle eversion and DF with level 2 band Comments Trouble following cues, left ankle lags. 10 reps x2 Standing Exercises sit to stands Standing Exercise Name sit-stand without UE support Resistance L1 exercise band around knees Comments 30 sec: 12 reps and pt tends not to sit all the way back; 19 reps in 40 sec Neuro Re-Education Treatment Balance Activities SLS Equipment in parallel bars Reps/Duration 5 reps each LE Comments Cues to keep lifted foot behind, up to 30 sec B Tandem standing B Surface level Equipment in parallel bars Reps/Duration 1 reps each side Comments Able to hold 30 sec each today , has to use rail to to get into position tandem Details tandem gait Surface level Equipment in parallel bars Reps/Duration 6 laps Coordination Activities Crossing foot over other Comments Pt is unable to perform well, dysmetric UE pronation/Supination Comments Cues to make sure that left hand and right hand keep hitting on thighs--he tends to fall off to the sides. Performed up to 2 minutes. Had to slow motion to get better/ equal form Toe Tapping Comments Pt is unable to do alterating heel and toe up, only able to do toe up PT-OP-T Assessment and Plan Start: 11/08/19 07:27 Freq: Status: Active Protocol: Document 01/16/20 08:17 MB (Rec: 01/16/20 08:30 MB [id number]) Physical Therapy Assessment Goals 5 Wheelchair Rental Clerk Goal (LTG) Pt will perform 15 reps sit to stand without UE support in 30 sec by 02/09/2020 to improve safety with functional transfers. LTG Duration 6 weeks 4 Wheelchair Rental Clerk Goal (LTG) Pt will deny falls for 6 weeks by 02/09/2020. 01/09/2020: Pt denies falls since hospital adm LTG Duration 6 weeks 3 Fci Goal (LTG) Pt will perform progressive HEP including balance, postural and LE exercises with I by 02/09/2020. 01/09/2020: Pt is performing progressive HEP. LTG Duration 6 weeks 2 Wheelchair Rental Clerk Goal (LTG) Pt will present with B hip flexion and abduction strength to 5/5 by 02/09/2020. 01/09/2020: Sitting hip flexion right 5/5, left 4/5 LTG Duration 6 weeks 1 Fci Goal (LTG) Pt will present with FGA score to at least 28/30 to reflect improved balance by 02/09/2020. 01/01/2020: FGA score reflects 18/30 this date. LTG Duration 6 weeks Assessment Summary Assessment Pt con't to be impulsive, [place], does have trouble with awareness of left foot when donning therapy band around feet. Pt is able to put his left foot up on the upright bike pedal much better today. Con't to progress balance and strengthening LEs. Physical Therapy Plan Frequency and Duration Frequency of Treatment 2x/Week Duration of Treatment 6 weeks Plan of Care Start Date 01/09/20 Plan of Care End Date 02/09/20 Therapeutic Interventions Therapeutic Interventions Balance Training,Canalithic Repositioning,Coordination Training,Gait Training,Home Exercise Program,Manual Therapy,Neuromuscular Re- education,Patient/Caregiver Education,Self-Care/Home Management,Soft Tissue Mobilization,Taping, Therapeutic Exercises, Vestibular Rehabilitation Modalities Cold Pack/Ice Massage,Electric Stimulation,Hot Packs, Ultrasound Other Referrals/Consults Referrals/Consults Recommended METAL GRINDER consult for cognitive training Next Visit Focus/Plan Next Note Type Treatment Note Next Visit Plan Continue balance retraining, monitor left inattention
--- NOTE | 2020-01-19 10:27 | PT.OTN ---
Current Diagnoses Dizziness and giddiness (01/19/20) Unspecified fall, initial encounter (01/19/20) Physical Therapy Treatment Note PT-OP-A Visit Information Start: 11/08/19 07:27 Freq: Status: Active Protocol: Document 01/19/20 09:43 MB (Rec: 01/19/20 10:27 MB [id number]) Out-Patient Physical Therapy Visit Information Visit Information Visit Type Treatment Note Visit Start Time 09:43 Visit Stop Time 10:28 Total Visit Minutes 45 Visit Number 4/10 Number of ESTHETIC DERMATOLOGIST Visits 0 Precautions Precautions New CVA 01/02/20 PT-OP-B Current Condition Start: 11/08/19 07:27 Freq: Status: Active Protocol: Document 11/08/19 10:35 MB (Rec: 11/08/19 11:21 MB [id number]) Current Condition History of Current Condition Onset Date 2 months ago History of Current Condition Pt reports history of two mechanical falls doing yard work. He has issues when he is walking and not paying attention to where he is going and has had stumbles over curbs. He would like PT for balance. He had 3 bouts of vertigo in the past 3 years and got his neck nikki by chiropractor and it was fixed. He denies neuropathy and leg weakness. He has two missing left toes 3rd and 4th after hunting accident and shooting them. He has been on a statin on 10 years. He has taken Simvastin for 5-6 years. Pt denies pain. He drinks 3-4 cups of coffee a day, social glass of wine or other alcohol and 1-2 glasses of water. He drinks 1-2 cans of diet coke everyday in the summer. Prior Treatments and Tests PT in past after rotator cuff surgery went well PT-OP-C Subjective Start: 11/08/19 07:27 Freq: Status: Active Protocol: Document 01/19/20 09:43 MB (Rec: 01/19/20 10:27 MB [id number]) OP-PT Subjective Patient Comments Patient Comments Pt states that he felt a little bit off one day. He has changed to decaf coffee. He is drinking more. PT-OP-D Balance Start: 11/08/19 07:27 Freq: Status: Active Protocol: Document 01/09/20 08:14 MB (Rec: 01/09/20 10:48 MB [id number]) Balance Tests Other Other Balance Tests Performed FGA score is 18/30. His overall darrel since stroke is slower and this appears safer. PT-OP-M Strength Start: 11/08/19 07:27 Freq: Status: Active Protocol: Document 01/09/20 08:14 MB (Rec: 01/09/20 10:48 MB [id number]) Shoulder Strength Shoulder Manual Muscle Testing Left Flexion 5 Normal Abduction (C5) 5 Normal External Rotation 4 Good Internal Rotation 5 Normal Comments Standing Right Flexion 4 Good Adduction 5 Normal External Rotation 4 Good Internal Rotation 5 Normal Comments Standing Elbow/Forearm Strength Elbow and Forearm Manual Muscle Testing Left Flexion (C6) 4 Good Extension (C7) 5 Normal Comments Standing Right Flexion (C6) 5 Normal Extension (C7) 5 Normal Comments Standing Hip Strength Hip Manual Muscle Testing Left Flexion (L2) 4 Good Comments Sitting Right Flexion (L2) 5 Normal Comments Sitting Knee Strength Knee Manual Muscle Testing Left Flexion (S2) 5 Normal Extension (L3) 5 Normal Right Flexion (S2) 5 Normal Extension (L3) 5 Normal Ankle/Foot Strength Ankle and Foot Manual Muscle Testing Left Dorsiflexion (L4) 5 Normal Right Dorsiflexion (L4) 5 Normal Toe Strength Toe Manual Muscle Testing Left Great Toe Extension 4 Good Comments 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 Right Great Toe Extension 4 Good PT-OP-Q Treatments Start: 11/08/19 07:27 Freq: Status: Active Protocol: Document 01/19/20 09:43 MB (Rec: 01/19/20 10:27 MB [id number]) Cardio Equipment Recumbent Bicycle Duration (Minutes) 8 Resistance 7 Other Pt is able to place left foot easily on bike pedal today Therapeutic Exercises Sitting Exercises Ankle eversion and DF with level 2 band Comments Level 2 band: Pt has trouble aligning feet, keeping tension on band, L lag Standing Exercises sit to stands Standing Exercise Name sit-stand without UE support Resistance L1 exercise band around knees Comments 20 reps in 45 sec Neuro Re-Education Treatment Balance Activities myrna stepping Comments Forward and backwards today: 1 set of 10 reps forward and pt without UE support; 2 sets backwards 6 reps, B UE support and pt knocks over hurdles 30 % of steps. One step between each myrna tandem Details tandem gait Surface level Equipment in parallel bars Reps/Duration 6 laps Comments Jeans tend to rub, cues to slow down and keep heel to toe PT-OP-T Assessment and Plan Start: 11/08/19 07:27 Freq: Status: Active Protocol: Document 01/19/20 09:43 MB (Rec: 01/19/20 10:27 MB [id number]) Physical Therapy Assessment Goals 5 Slice Plug Cutter Operator Helper Goal (LTG) Pt will perform 15 reps sit to stand without UE support in 30 sec by 02/09/2020 to improve safety with functional transfers. LTG Duration 6 weeks 4 Slice Plug Cutter Operator Helper Goal (LTG) Pt will deny falls for 6 weeks by 02/09/2020. 01/09/2020: Pt denies falls since hospital adm LTG Duration 6 weeks 3 Usp Goal (LTG) Pt will perform progressive HEP including balance, postural and LE exercises with I by 02/09/2020. 01/09/2020: Pt is performing progressive HEP. LTG Duration 6 weeks 2 Slice Plug Cutter Operator Helper Goal (LTG) Pt will present with B hip flexion and abduction strength to 5/5 by 02/09/2020. 01/09/2020: Sitting hip flexion right 5/5, left 4/5 LTG Duration 6 weeks 1 Usp Goal (LTG) Pt will present with FGA score to at least 28/30 to reflect improved balance by 02/09/2020. 01/01/2020: FGA score reflects 18/30 this date. 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 He is going to try to get speech therapy appointments to start after his trip to [place]. Plan to start at the end of January. Con't balance progression. Physical Therapy Plan Frequency and Duration Frequency of Treatment 2x/Week Duration of Treatment 6 weeks Plan of Care Start Date 01/09/20 Plan of Care End Date 02/09/20 Therapeutic Interventions Therapeutic Interventions Balance Training,Canalithic Repositioning,Coordination Training,Gait Training,Home Exercise Program,Manual Therapy,Neuromuscular Re- education,Patient/Caregiver Education,Self-Care/Home Management,Soft Tissue Mobilization,Taping, Therapeutic Exercises, Vestibular Rehabilitation Modalities Cold Pack/Ice Massage,Electric Stimulation,Hot Packs, Ultrasound Other Referrals/Consults Referrals/Consults Recommended INGOT STRIPPER consult for cognitive training Next Visit Focus/Plan Next Note Type Treatment Note Next Visit Plan Continue balance retraining, monitor left inattention
--- NOTE | 2020-01-23 10:32 | PT.OTN ---
Current Diagnoses Dizziness and giddiness (01/23/20) Unspecified fall, initial encounter (01/23/20) Physical Therapy Treatment Note PT-OP-A Visit Information Start: 11/08/19 07:27 Freq: Status: Active Protocol: Document 01/23/20 09:48 MB (Rec: 01/23/20 10:28 MB [id number]) Out-Patient Physical Therapy Visit Information Visit Information Visit Type Treatment Note Visit Start Time 09:48 Visit Stop Time 10:28 Total Visit Minutes 40 Visit Number 03/31 Number of SENIOR NET PROGRAMMER Visits 0 Precautions Precautions New CVA 01/02/20 PT-OP-B Current Condition Start: 11/08/19 07:27 Freq: Status: Active Protocol: Document 11/08/19 10:35 MB (Rec: 11/08/19 11:21 MB [id number]) Current Condition History of Current Condition Onset Date 2 months ago History of Current Condition Pt reports history of two mechanical falls doing yard work. He has issues when he is walking and not paying attention to where he is going and has had stumbles over curbs. He would like PT for balance. He had 3 bouts of vertigo in the past 3 years and got his neck nikki by chiropractor and it was fixed. He denies neuropathy and leg weakness. He has two missing left toes 3rd and 4th after hunting accident and shooting them. He has been on a statin on 10 years. He has taken Simvastin for 5-6 years. Pt denies pain. He drinks 3-4 cups of coffee a day, social glass of wine or other alcohol and 1-2 glasses of water. He drinks 1-2 cans of diet coke everyday in the summer. Prior Treatments and Tests PT in past after rotator cuff surgery went well PT-OP-C Subjective Start: 11/08/19 07:27 Freq: Status: Active Protocol: Document 01/23/20 09:48 MB (Rec: 01/23/20 10:28 MB [id number]) OP-PT Subjective Patient Comments Patient Comments Pt states that he still feels a little bit off. He is drinking more. PT-OP-D Balance Start: 11/08/19 07:27 Freq: Status: Active Protocol: Document 01/09/20 08:14 MB (Rec: 01/09/20 10:48 MB [id number]) Balance Tests Other Other Balance Tests Performed FGA score is 18/30. His overall darrel since stroke is slower and this appears safer. PT-OP-M Strength Start: 11/08/19 07:27 Freq: Status: Active Protocol: Document 01/09/20 08:14 MB (Rec: 01/09/20 10:48 MB [id number]) Shoulder Strength Shoulder Manual Muscle Testing Left Flexion 5 Normal Abduction (C5) 5 Normal External Rotation 4 Good Internal Rotation 5 Normal Comments Standing Right Flexion 4 Good Adduction 5 Normal External Rotation 4 Good Internal Rotation 5 Normal Comments Standing Elbow/Forearm Strength Elbow and Forearm Manual Muscle Testing Left Flexion (C6) 4 Good Extension (C7) 5 Normal Comments Standing Right Flexion (C6) 5 Normal Extension (C7) 5 Normal Comments Standing Hip Strength Hip Manual Muscle Testing Left Flexion (L2) 4 Good Comments Sitting Right Flexion (L2) 5 Normal Comments Sitting Knee Strength Knee Manual Muscle Testing Left Flexion (S2) 5 Normal Extension (L3) 5 Normal Right Flexion (S2) 5 Normal Extension (L3) 5 Normal Ankle/Foot Strength Ankle and Foot Manual Muscle Testing Left Dorsiflexion (L4) 5 Normal Right Dorsiflexion (L4) 5 Normal Toe Strength Toe Manual Muscle Testing Left Great Toe Extension 4 Good Comments 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 Right Great Toe Extension 4 Good PT-OP-Q Treatments Start: 11/08/19 07:27 Freq: Status: Active Protocol: Document 01/23/20 09:48 MB (Rec: 01/23/20 10:28 MB [id number]) Therapeutic Exercises Sitting Exercises Ankle eversion and DF with level 2 band Reps/Minutes 15 reps Comments Level 2 band: Pt has trouble aligning feet, keeping tension on band, L lag Standing Exercises sit to stands Comments L2 band, 20 reps in 40 sec Neuro Re-Education Treatment Balance Activities Grapeline alternating crossing in front and behind Details VCs and demo from PT Reps/Duration 6 Comments // bar support in front, has trouble alternating crossing behind and in front when leading with either leg going either direction. More trouble with left foot, may be related to stroke myrna stepping Comments Forward and backwards today: 1 set of 7 reps forward and pt without UE support, changed width and more diffrcult today ; 2 sets backwards 6 reps, B UE support and cues to look both right and left over shoulder with stepping, constant cues. Cognitive changes with looking over shoulders more challenging tandem Details tandem gait Surface level Equipment in parallel bars Reps/Duration 6 laps Comments Form is better today, with pt looking forward more and vbetter heel to toe. Jeans tend to rub, cues to slow down and keep heel to toe PT-OP-T Assessment and Plan Start: 11/08/19 07:27 Freq: Status: Active Protocol: Document 01/23/20 09:48 MB (Rec: 01/23/20 10:28 MB [id number]) Physical Therapy Assessment Goals 5 Retirement Goal (LTG) Pt will perform 15 reps sit to stand without UE support in 30 sec by 02/09/2020 to improve safety with functional transfers. LTG Duration 6 weeks 4 Retirement Goal (LTG) Pt will deny falls for 6 weeks by 02/09/2020. 01/09/2020: Pt denies falls since hospital adm LTG Duration 6 weeks 3 Kiln Furniture Caster Goal (LTG) Pt will perform progressive HEP including balance, postural and LE exercises with I by 02/09/2020. 01/09/2020: Pt is performing progressive HEP. LTG Duration 6 weeks 2 Kiln Furniture Caster Goal (LTG) Pt will present with B hip flexion and abduction strength to 5/5 by 02/09/2020. 01/09/2020: Sitting hip flexion right 5/5, left 4/5 LTG Duration 6 weeks 1 Kiln Furniture Caster Goal (LTG) Pt will present with FGA score to at least 28/30 to reflect improved balance by 02/09/2020. 01/01/2020: FGA score reflects 18/30 this date. LTG Duration 6 weeks Assessment Summary Assessment Cognitive challenges with stepping backwards today (look over shoulder) difficult. Pt tends to verbalize right and left with steps rather than with looking over shoulder. Pt impulsivity may be related to cognitive status and WIYOT. Con 't balance progression. Physical Therapy Plan Frequency and Duration Frequency of Treatment 2x/Week Duration of Treatment 6 weeks Plan of Care Start Date 01/09/20 Plan of Care End Date 02/09/20 Therapeutic Interventions Therapeutic Interventions Balance Training,Canalithic Repositioning,Coordination Training,Gait Training,Home Exercise Program,Manual Therapy,Neuromuscular Re- education,Patient/Caregiver Education,Self-Care/Home Management,Soft Tissue Mobilization,Taping, Therapeutic Exercises, Vestibular Rehabilitation Modalities Cold Pack/Ice Massage,Electric Stimulation,Hot Packs, Ultrasound Other Referrals/Consults Referrals/Consults Recommended WATER RESOURCES ENGINEER consult for cognitive training Next Visit Focus/Plan Next Note Type Treatment Note Next Visit Plan Continue balance retraining, monitor left inattention
--- NOTE | 2020-01-26 10:30 | PT.OTN ---
Current Diagnoses Dizziness and giddiness (01/26/20) Unspecified fall, initial encounter (01/26/20) Physical Therapy Treatment Note PT-OP-A Visit Information Start: 11/08/19 07:27 Freq: Status: Active Protocol: Document 01/26/20 09:50 SP (Rec: 01/26/20 11:52 SP [id number]) Out-Patient Physical Therapy Visit Information Visit Information Visit Type Treatment Note Visit Start Time 09:50 Visit Stop Time 10:30 Total Visit Minutes 40 Visit Number 05/01 Number of SLATE CUTTER Visits 1 PT-OP-B Current Condition Start: 11/08/19 07:27 Freq: Status: Active Protocol: Document 11/08/19 10:35 MB (Rec: 11/08/19 11:21 MB [id number]) Current Condition History of Current Condition Onset Date 2 months ago History of Current Condition Pt reports history of two mechanical falls doing yard work. He has issues when he is walking and not paying attention to where he is going and has had stumbles over curbs. He would like PT for balance. He had 3 bouts of vertigo in the past 3 years and got his neck nikki by chiropractor and it was fixed. He denies neuropathy and leg weakness. He has two missing left toes 3rd and 4th after hunting accident and shooting them. He has been on a statin on 10 years. He has taken Simvastin for 5-6 years. Pt denies pain. He drinks 3-4 cups of coffee a day, social glass of wine or other alcohol and 1-2 glasses of water. He drinks 1-2 cans of diet coke everyday in the summer. Prior Treatments and Tests PT in past after rotator cuff surgery went well PT-OP-C Subjective Start: 11/08/19 07:27 Freq: Status: Active Protocol: Document 01/26/20 09:50 SP (Rec: 01/26/20 11:52 SP [id number]) OP-PT Subjective Patient Comments Patient Comments Pt reported no concerns, feeling pretty good pre PT. PT-OP-D Balance Start: 11/08/19 07:27 Freq: Status: Active Protocol: Document 01/09/20 08:14 MB (Rec: 01/09/20 10:48 MB [id number]) Balance Tests Other Other Balance Tests Performed FGA score is 18/30. His overall darrel since stroke is slower and this appears safer. PT-OP-M Strength Start: 11/08/19 07:27 Freq: Status: Active Protocol: Document 01/09/20 08:14 MB (Rec: 01/09/20 10:48 MB [id number]) Shoulder Strength Shoulder Manual Muscle Testing Left Flexion 5 Normal Abduction (C5) 5 Normal External Rotation 4 Good Internal Rotation 5 Normal Comments Standing Right Flexion 4 Good Adduction 5 Normal External Rotation 4 Good Internal Rotation 5 Normal Comments Standing Elbow/Forearm Strength Elbow and Forearm Manual Muscle Testing Left Flexion (C6) 4 Good Extension (C7) 5 Normal Comments Standing Right Flexion (C6) 5 Normal Extension (C7) 5 Normal Comments Standing Hip Strength Hip Manual Muscle Testing Left Flexion (L2) 4 Good Comments Sitting Right Flexion (L2) 5 Normal Comments Sitting Knee Strength Knee Manual Muscle Testing Left Flexion (S2) 5 Normal Extension (L3) 5 Normal Right Flexion (S2) 5 Normal Extension (L3) 5 Normal Ankle/Foot Strength Ankle and Foot Manual Muscle Testing Left Dorsiflexion (L4) 5 Normal Right Dorsiflexion (L4) 5 Normal Toe Strength Toe Manual Muscle Testing Left Great Toe Extension 4 Good Comments 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 Right Great Toe Extension 4 Good PT-OP-Q Treatments Start: 11/08/19 07:27 Freq: Status: Active Protocol: Document 01/26/20 09:50 SP (Rec: 01/26/20 11:52 SP [id number]) Therapeutic Exercises Sitting Exercises Ankle eversion and DF with level 2 band Reps/Minutes 15 reps Comments Level 2 band: Pt has trouble aligning feet, keeping tension on band, L lag Standing Exercises sit to stands Reps/Minutes 6 reps in 15 sec AROM, L2 TB 18 reps/40 sec Comments less by 2 reps than previous tx. Neuro Re-Education Treatment Balance Activities tandem stance turns, EC Details stationary, head turns, EC Equipment //bar Comments good self recovery during turns, EC off balance but improved with upright posture and glut facilitation cuing. Not safe during Ec at home, patient agreed Grapeline alternating crossing in front and behind Details VCs and demo from PT (PT only) Reps/Duration 6 Comments // bar support in front, has trouble alternating crossing behind and in front when leading with either leg going either direction. More trouble with left foot, may be related to stroke. Cuing needed for patterning for proper performance. shuttle balance Details shuttle balance Equipment red chains Reps/Duration 10 Comments WBOS, wt shifting f/b improved decrease contact support (CGA -Jer) backward walk Reps/Duration 10 ft x2 laps Comments cued upright posture and mirror for self corrections high knee stepping Equipment in parallel bars Reps/Duration 4 laps Comments cued upright posture, slow pacing, pause leg elevated tandem Details tandem gait Surface level Equipment in parallel bars Reps/Duration 4 laps Comments Form is better today, with pt looking forward more and vbetter heel to toe. Jeans tend to rub, cues to slow down and keep heel to toe PT-OP-T Assessment and Plan Start: 11/08/19 07:27 Freq: Status: Active Protocol: Document 01/26/20 09:50 SP (Rec: 01/26/20 11:52 SP [id number]) Physical Therapy Assessment Goals 5 Er Nurse Goal (LTG) Pt will perform 15 reps sit to stand without UE support in 30 sec by 02/09/2020 to improve safety with functional transfers. LTG Duration 6 weeks 4 Er Nurse Goal (LTG) Pt will deny falls for 6 weeks by 02/09/2020. 01/09/2020: Pt denies falls since hospital adm LTG Duration 6 weeks 3 Shelter Goal (LTG) Pt will perform progressive HEP including balance, postural and LE exercises with I by 02/09/2020. 01/09/2020: Pt is performing progressive HEP. LTG Duration 6 weeks 2 Er Nurse Goal (LTG) Pt will present with B hip flexion and abduction strength to 5/5 by 02/09/2020. 01/09/2020: Sitting hip flexion right 5/5, left 4/5 LTG Duration 6 weeks 1 Er Nurse Goal (LTG) Pt will present with FGA score to at least 28/30 to reflect improved balance by 02/09/2020. 01/01/2020: FGA score reflects 18/30 this date. LTG Duration 6 weeks Assessment Summary Assessment Assessed Orthostatic BPs and HR for safety pre PT and during balance activities: stand- 154/87, HR 88 seated- 139/85, HR 84 supine-123/74, HR 78 seated post balance act- 130/ 77, HR 78 Pt tolerated tx well, no adverse affects. Tx focused on balance improved NBOS tandem head turns post cuing for COG over ULISES and glut facilitaion. LOB but self recovery on // bar during EC tandem, cued for awareness of upright posture for improve COG. Pt required continuous verbage for proper sequencing grapevine difficulty remembering and noted off balance but able to self recover with contact on / /bar. Educated to only perform with PT at this time, pt agreed. Decrease sit to stands in 40 sec by 2 reps from last tx. Pt responded well to tx, no adverse affects. I feel like got a good work out. Physical Therapy Plan Frequency and Duration Frequency of Treatment 2x/Week Duration of Treatment 6 weeks Plan of Care Start Date 01/09/20 Plan of Care End Date 02/09/20 Therapeutic Interventions Therapeutic Interventions Balance Training,Canalithic Repositioning,Coordination Training,Gait Training,Home Exercise Program,Manual Therapy,Neuromuscular Re- education,Patient/Caregiver Education,Self-Care/Home Management,Soft Tissue Mobilization,Taping, Therapeutic Exercises, Vestibular Rehabilitation Modalities Cold Pack/Ice Massage,Electric Stimulation,Hot Packs, Ultrasound Other Referrals/Consults Referrals/Consults Recommended DISASTER OR DAMAGE CONTROL SPECIALIST consult for cognitive training Next Visit Focus/Plan Next Note Type Treatment Note Next Visit Plan Continue balance retraining, monitor left inattention
--- NOTE | 2020-02-07 17:24 | PT.OPDS ---
Current Diagnoses Dizziness and giddiness (01/26/20) Unspecified fall, initial encounter (01/26/20) Visit Care Team Role Provider Type Tomi Pathak MD Attending Provider Physician Primary Care Provider Specialty: Internal Medicine Address: [address] [place] [address], [facility] [address], [address] Email: [email or web address] Visit Number Visit Number 05/01 Discharge Summary PT-OP-B Current Condition Start: 11/08/19 07:27 Freq: Status: Active Protocol: Document 11/08/19 10:35 MB (Rec: 11/08/19 11:21 MB [id number]) Current Condition History of Current Condition Onset Date 2 months ago History of Current Condition Pt reports history of two mechanical falls doing yard work. He has issues when he is walking and not paying attention to where he is going and has had stumbles over curbs. He would like PT for balance. He had 3 bouts of vertigo in the past 3 years and got his neck nikki by chiropractor and it was fixed. He denies neuropathy and leg weakness. He has two missing left toes 3rd and 4th after hunting accident and shooting them. He has been on a statin on 10 years. He has taken Simvastin for 5-6 years. Pt denies pain. He drinks 3-4 cups of coffee a day, social glass of wine or other alcohol and 1-2 glasses of water. He drinks 1-2 cans of diet coke everyday in the summer. Prior Treatments and Tests PT in past after rotator cuff surgery went well PT-OP-C Subjective Start: 11/08/19 07:27 Freq: Status: Active Protocol: Document 01/26/20 09:50 SP (Rec: 01/26/20 11:52 SP [id number]) OP-PT Subjective Patient Comments Patient Comments Pt reported no concerns, feeling pretty good pre PT. PT-OP-D Balance Start: 11/08/19 07:27 Freq: Status: Active Protocol: Document 01/09/20 08:14 MB (Rec: 01/09/20 10:48 MB [id number]) Balance Tests Other Other Balance Tests Performed FGA score is 18/30. His overall darrel since stroke is slower and this appears safer. PT-OP-M Strength Start: 11/08/19 07:27 Freq: Status: Active Protocol: Document 01/09/20 08:14 MB (Rec: 01/09/20 10:48 MB [id number]) Shoulder Strength Shoulder Manual Muscle Testing Left Flexion 5 Normal Abduction (C5) 5 Normal External Rotation 4 Good Internal Rotation 5 Normal Comments Standing Right Flexion 4 Good Adduction 5 Normal External Rotation 4 Good Internal Rotation 5 Normal Comments Standing Elbow/Forearm Strength Elbow and Forearm Manual Muscle Testing Left Flexion (C6) 4 Good Extension (C7) 5 Normal Comments Standing Right Flexion (C6) 5 Normal Extension (C7) 5 Normal Comments Standing Hip Strength Hip Manual Muscle Testing Left Flexion (L2) 4 Good Comments Sitting Right Flexion (L2) 5 Normal Comments Sitting Knee Strength Knee Manual Muscle Testing Left Flexion (S2) 5 Normal Extension (L3) 5 Normal Right Flexion (S2) 5 Normal Extension (L3) 5 Normal Ankle/Foot Strength Ankle and Foot Manual Muscle Testing Left Dorsiflexion (L4) 5 Normal Right Dorsiflexion (L4) 5 Normal Toe Strength Toe Manual Muscle Testing Left Great Toe Extension 4 Good Comments 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 Right Great Toe Extension 4 Good PT-OP-T Assessment and Plan Start: 11/08/19 07:27 Freq: Status: Active Protocol: Document 02/07/20 17:22 MB (Rec: 02/07/20 17:24 MB [id number]) Physical Therapy Plan Discharge Physical Therapy Discharge Reasons No Longer Attending PT Discharge Comments Pt sick and cannot come to PT. Pt does not have anymore appointments. He is performing HEP including strengthening and balance. Will d/c PT.
== END 2020-02-08 08:17 ==
LOC: PHYS 09:45
PROVIDERS: PCP Student in an Organized Health Care Education/Training Program; Visit Provider Student in an Organized Health Care Education/Training Program
DX: R42 Dizziness and giddiness (principal); W19.XXXA Unspecified fall, initial encounter
CPT/HCPCS: 97110; 97112; 97161; 97164

== ENCOUNTER → 2020-03-12 12:03 | Outpatient (CLI) | payer MEDICARE, BC, SELFPAY ==
[2020-01-02 10:57] VITALS: BMI 26.8
--- NOTE | 2020-03-12 12:06 | DI.RAD.S_ITS ---
PROCEDURE: XR FOOT LT MIN 3V INDICATIONS: Re-assess old injury and surgical changes. Ongoing foot pain TECHNIQUE: 3 views of the foot were acquired. COMPARISON: None. FINDINGS: Bones: No acute fractures or dislocations. There is absence of the second and third rays from the base of each of these metatarsal bones distally. No osteomyelitis is seen. No suspicious bony lesions. Soft tissues: No tibiotalar joint effusion. Achilles tendon appears normal. 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 No acute disease or evidence of osteomyelitis is currently seen. It would be helpful to obtain old comparison films to assess for interval record changer assembler time. Dictated by: Norman Marlow M.D. on 03/12/2020 at 13:18 Approved by: Norman Marlow M.D. on 03/12/2020 at 13:24
== END ==
PROVIDERS: PCP Student in an Organized Health Care Education/Training Program; Referring Provider Student in an Organized Health Care Education/Training Program; Visit Provider Student in an Organized Health Care Education/Training Program
DX: M79.672 Pain in left foot (principal); Z89.422 Acquired absence of other left toe(s)
CPT/HCPCS: 73630

== ENCOUNTER 2020-07-09 09:30 | Outpatient (RCR) | payer MEDICARE, BC, SELFPAY ==
[2020-01-02 10:57] VITALS: BMI 26.8
--- NOTE | 2020-05-20 14:32 | ST.OPPOC ---
Physical, Occupational & Speech Therapy At [facility] Visit Care Team Role Provider Type Tomi Pathak MD Attending Provider Physician Primary Care Provider Referring Provider Address: [address] [place] [address], [facility] [address], [place], [address] Speech Pathology Plan of Care Plan of Care Dates 05/20/20-02/18/20 Short Term Goals Strategies will be developed for memory, organization and planning with Juno and his family. He will successfully use these strategies daily, as reported by Juno and his family Electronically Signed by: Helen Kenney, ALICIA 05/20/20 0371 Please Sign and Return: I have reviewed this Plan of Care and certify that the skilled therapy services above are required to meet the patient?s needs. Physician Signature Date Printed Name and Credentials Clinical Instructor Signature Printed Name and Credentials
--- NOTE | 2020-05-20 14:33 | ST.OPIE ---
Visit Care Team Role Provider Type Tomi Pathak MD Attending Provider Physician Primary Care Provider Referring Provider Specialty: Internal Medicine Address: [address] [place] [address], [address], [address] Email: [email or web address] Speech-Language Pathology Initial Evaluation LOAN REVIEW ANALYST Cognitive/Memory Evaluation Start: 05/20/20 12:51 Freq: Status: Active Protocol: Document 05/20/20 12:51 LNK (Rec: 05/20/20 13:33 LNK [email or web address]) Evaluation of Cognition Session Time Visit Start Time 10:30 Visit Stop Time 12:30 Total Visit Minutes 60 Visit Information Visit Number 11/29 Plan of Care Dates 05/20/20-02/18/20 Next Note Type Next Note Type Treatment Note Referral Referring Physician Dr Pathak Reason for Referral cognition concerns Evaluation Assessment Type Cognitive Past Medical History Patient History Juno Emmanuel is here following a recent hospitalization for CVA/TIA ( 2019) At that time, brain imaging demonstrating small infarct in the right cope radiata, evidence of chronic vascular ischemia. Patient was discharged in good condition with most symptoms having resolved spontaneously. He reports a subtle impairment in his cognition that is difficult for him to describe. Speech therapy assessment as outpatient was recommended. Vision Vision Status Impaired Comments wears glasses Previous Therapy Previous Speech-Language Therapy OT/ PT Oral Motor Examination Results Informal observation indicated WFL - Formal Assessment Standardized Test Cognitive Linguistic Quick Test - Plus Administration Complete Results The CLQT assesses 6 cognitive areas: Attention, Memory, Executive Functions, Language, Visual Spatial skills and a Clock Drawing task. There were two areas in which Juno 's score was at a moderate deficit. Those were Executive Functions and Language. His Clock Drawing was determined to be severe. The other areas scored at a mild impairment level. There are 10 subtests that comprise the overall cognition scores. A criterion referenced table was used to determine if Juno's scores and performance were below expected age criteria. Juno scored below criteria for the following: Clock Drawing, Story Retelling, Symbol Trails , Mazes and Design Generation. - Cognition Orientation Skill Level WFL Attention Skill Level Severely Impaired Comment Story Retelling, Symbol Trails , Mazes, Design Generation Clock Drawing Problem Solving/Reasoning/Judgment Skill Level Severely Impaired Comment RE: Mazes, Symbol Trails, Clock Drawing Divergent Naming Skill Level Mildly Impaired Sequencing Skill Level Moderately Impaired Comment RE: Mazes, Story Retelling, Clock Drawing Clock Drawing Skill Level Severely Impaired Comment Clock Drawing Cognitive Assessment Cognitive Assessment There were five of 10 subtests that proved to be difficult for Juno. These subtests are: 1) Story Retelling, which addresses language, memory, sequencing and coming to a logical conclusion. 2) Symbol Trails which examines attention, complex scanning, motor agility speed, working memory, planning, mental flexibility and conceptualization. 3) Design Generation: a good test of Executive Functioning. requiring mental flexibility, creativity, working memory, use of strategy and self- monitoring. 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 His results of the CLQT+ indicate that deficiencies reported above may severely impact Gustavo?s ability to function independently for ADLs. Recommendations Recommendations Recommend Cognitive Therapy weekly to assist Juno and his family to develop strategies that will help with ADLs of concern to Juno and family. Treatment Goals Short Term Goals Strategies will be developed for memory, organization and planning with Juno and his family. He will successfully use these strategies daily, as reported by Juno and his family Total Time Full Evaluation Time 120
--- NOTE | 2020-05-27 14:32 | ST.OPTN ---
Visit Care Team Role Provider Type Tomi Pathak MD Attending Provider Physician Primary Care Provider Referring Provider Address: [address] [place] [address], [address], [place], [address] BIOLOGICAL CHEMIST Treatment Note BIOLOGICAL CHEMIST Treatment Note Start: 05/20/20 12:51 Freq: Status: Active Protocol: Document 05/27/20 14:07 LNK (Rec: 05/27/20 14:28 LNK [email or web address]) Speech Pathology Treatment Note Session Time Visit Start Time 10:30 Visit Stop Time 11:30 Total Visit Minutes 60 Visit Information Visit Number 2 Plan of Care Dates 05/20/20-02/18/20 Setting Treatment Setting Outpatient Care Visit Type Note Type Treatment Note Next Note Type Next Note Type Treatment Note General Information General Information Juno Emmanuel is here following a recent hospitalization for CVA/TIA ( 2019) At that time, brain imaging demonstrating small infarct in the right cope radiata, evidence of chronic vascular ischemia. He reports a subtle impairment in his cognition that is difficult for him to describe. Speech therapy assessment as outpatient was recommended. 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 His results of the CLQT+ indicate that deficiencies reported above may severely impact Gustavo?s ability to function independently for ADLs. Subjective Identification Type Name,Picture Identification Reconciled With Medical Record Others Present Family Rehab Expectation/Goals: Patient Goals Pt expressed that he would like to drive again. Patient Knowledge/Awareness of BIOLOGICAL CHEMIST Role Good in Treatment Objective Short Term Goals Strategies will be developed for memory, organization and planning with Juno and his family. He will successfully use these strategies daily, as reported by Juno and his family [ End ] Marine Fuel Dock Attendant Goals Juno will utilize strategies to assist with performing ADLs. Treatment Activities Reviewed the CLQT+ results with Juno and his . Discussed the subtest results as well the overall results. Juno and his asked appropriate questions. They indicated that they understood and were appreciative. Some strategies were discussed, such as keeping everything in one place at home with the calendar and important messages. They both indicated that they have such a spot. Mrs. Emmanuel asked how they could find more information regarding where to go from here. Therapeutic exercises will be developed as well as recommendations for brain game apps for the iPad. it was suggested that they make an appointment with Dr. Pathak to discuss their questions. Therapy will continue 3-4 sessions Assessment Patient Response to Treatment Excellent Rehab Potential Good Reviewed with Patient Goals,Home Exercise Program Patient/Caregiver Understanding Good Plan Amount of Therapy Recommended 1-2 Months Frequency of Treatment Once a Week Length of Session 60 Minutes Therapeutic Contents Cognitive-Linguistic Training Provided Patient/Caregiver Instruction Plan of Care
--- NOTE | 2020-06-11 11:34 | ST.OPTN ---
Visit Care Team Role Provider Type Tomi Pathak MD Attending Provider Physician Primary Care Provider Referring Provider Address: [address] [place] [address], [address], [place], [address] MEDICAL LEGAL INVESTIGATOR Treatment Note MEDICAL LEGAL INVESTIGATOR Treatment Note Start: 05/20/20 12:51 Freq: Status: Active Protocol: Document 06/11/20 10:30 LNK (Rec: 06/11/20 11:34 LNK [email or web address]) Speech Pathology Treatment Note Session Time Visit Start Time 10:30 Visit Stop Time 11:30 Total Visit Minutes 60 Visit Information Visit Number 3 Plan of Care Dates 05/20/20-02/18/20 Setting Treatment Setting Outpatient Care Visit Type Note Type Treatment Note Next Note Type Next Note Type Treatment Note General Information General Information Juno Emmanuel is here following a recent hospitalization for CVA/TIA ( 2019) At that time, brain imaging demonstrating small infarct in the right cope radiata, evidence of chronic vascular ischemia. He reports a subtle impairment in his cognition that is difficult for him to describe. Speech therapy assessment as outpatient was recommended. 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 His results of the CLQT+ indicate that deficiencies reported above may severely impact Gustavo?s ability to function independently for ADLs. Subjective Identification Type Name,Picture Identification Reconciled With Medical Record Others Present Family Rehab Expectation/Goals: Patient Goals Pt expressed that he would like to drive again. Patient Knowledge/Awareness of MEDICAL LEGAL INVESTIGATOR Role Good in Treatment Objective Short Term Goals Strategies will be developed for memory, organization and planning with Juno and his family. He will successfully use these strategies daily, as reported by Juno and his family [ End ] Level Vial Curvature Gauger Goals Juno will utilize strategies to assist with performing ADLs. Treatment Activities Introduced activities for Juno to use on iPad at home. Memory Games, [employer], Brain computer technology trainer. Targeting attention, memory, cognitive flexibility. Juno participated in several 'games over 1-2x/game. Improvement was observed from trial 1 to trial2. Will see in 2 weeks to allow Juno to work and set a goal of improvement over trials played. Assessment Patient Response to Treatment Excellent Rehab Potential Good Reviewed with Patient Goals,Home Exercise Program Patient/Caregiver Understanding Good Plan Amount of Therapy Recommended 1-2 Months Frequency of Treatment Once a Week Length of Session 60 Minutes Therapeutic Contents Cognitive-Linguistic Training Provided Patient/Caregiver Instruction Plan of Care
--- NOTE | 2020-06-25 11:24 | ST.OPTN ---
Visit Care Team Role Provider Type Tomi Pathak MD Attending Provider Physician Primary Care Provider Referring Provider Address: [address] [place] [address], [address], [place], [address] MAINTENANCE GROUNDMAN Treatment Note MAINTENANCE GROUNDMAN Treatment Note Start: 05/20/20 12:51 Freq: Status: Active Protocol: Document 06/25/20 10:15 LNK (Rec: 06/25/20 11:24 LNK [email or web address]) Speech Pathology Treatment Note Session Time Visit Start Time 10:30 Visit Stop Time 11:30 Total Visit Minutes 60 Visit Information Visit Number 4 Plan of Care Dates 02/18/20-05/20/20 Setting Treatment Setting Outpatient Care Visit Type Note Type Treatment Note Next Note Type Next Note Type Treatment Note General Information General Information Juno Emmanuel is here following a recent hospitalization for CVA/TIA ( 2019) At that time, brain imaging demonstrating small infarct in the right cope radiata, evidence of chronic vascular ischemia. He reports a subtle impairment in his cognition that is difficult for him to describe. Speech therapy assessment as outpatient was recommended. 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 His results of the CLQT+ indicate that deficiencies reported above may severely impact Gustavo?s ability to function independently for ADLs. Subjective Identification Type Name,Picture Identification Reconciled With Medical Record Others Present Family Rehab Expectation/Goals: Patient Goals Pt expressed that he would like to drive again. Patient Knowledge/Awareness of MAINTENANCE GROUNDMAN Role Good in Treatment Parent/Caretake Knowledge/Awareness of Excellent MAINTENANCE GROUNDMAN Role in Treatment Patient/Caregiver Compliance with Home Excellent Exercise Program Objective Short Term Goals Strategies will be developed for memory, organization and planning with Juno and his family. He will successfully use these strategies daily, as reported by Juno and his family [ End ] Longterm Goals Juno will utilize strategies to assist with performing ADLs. Treatment Activities Juno and his attended today. Juno brought his tablet and demonstrated the games he has been playing on the marilee [employer]. He has used several games that were assigned to him. Overall his accuracy has been @ 39% with his speed and focus at 7%. Juno finds that he is enjoying the games and their challenges. He has 1 more appointment in [address] will be determined at that time. Assessment Patient Response to Treatment Excellent Rehab Potential Good Assessment of Improvement Observed that speed and accuracy are improving in the divided attention game. Reviewed with Patient Goals,Home Exercise Program Patient/Caregiver Understanding Good Plan Amount of Therapy Recommended 1-2 Months Frequency of Treatment Once a Week Length of Session 60 Minutes Therapeutic Contents Cognitive-Linguistic Training Provided Patient/Caregiver Instruction Plan of Care
--- NOTE | 2020-07-09 12:24 | ST.OPTN ---
Visit Care Team Role Provider Type Tomi Pathak MD Attending Provider Physician Primary Care Provider Referring Provider Address: [address] [place] [address], [address], [place], [address] VETERANS' COUNSELOR Treatment Note VETERANS' COUNSELOR Treatment Note Start: 05/20/20 12:51 Freq: Status: Active Protocol: Document 07/09/20 12:17 LNK (Rec: 07/09/20 12:23 LNK [email or web address]) Speech Pathology Treatment Note Session Time Visit Start Time 09:30 Visit Stop Time 10:15 Total Visit Minutes 45 Visit Information Visit Number 5 Plan of Care Dates 02/18/20-07/20/20 Setting Treatment Setting Outpatient Care Visit Type Note Type Treatment Note Next Note Type Next Note Type Discharge Summary General Information General Information Juno Emmanuel is here following a recent hospitalization for CVA/TIA ( 2019) At that time, brain imaging demonstrating small infarct in the right cope radiata, evidence of chronic vascular ischemia. He reports a subtle impairment in his cognition that is difficult for him to describe. Speech therapy assessment as outpatient was recommended. 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 His results of the CLQT+ indicate that deficiencies reported above may severely impact Gustavo?s ability to function independently for ADLs. Subjective Identification Type Name,Picture Identification Reconciled With Medical Record Others Present Family Rehab Expectation/Goals: Patient Goals Pt expressed that he would like to drive again. Patient Knowledge/Awareness of VETERANS' COUNSELOR Role Good in Treatment Parent/Caretake Knowledge/Awareness of Excellent VETERANS' COUNSELOR Role in Treatment Patient/Caregiver Compliance with Home Excellent Exercise Program Objective Short Term Goals Strategies will be developed for memory, organization and planning with Juno and his family. He will successfully use these strategies daily, as reported by Juno and his family [ End ] Php Website Developer Goals Juno will utilize strategies to assist with performing ADLs. Treatment Activities Juno and his attended today. Juno brought his tablet and demonstrated the games he has been playing on the marilee, [employer]. He has used several games assigned, targeting memory, attention, divided attention and speed. Pt and his reported that he has seen improved scores as he continues the games. He has explored other games as well. Juno finds that he is enjoying the games and their challenges. Assessment Patient Response to Treatment Excellent Rehab Potential Good Progress Towards Goals Excellent Progress Assessment of Overall Progress Improving Assessment of Improvement Both Juno and his report that they feel Juno is ready and able to continue therapeutic activities at home as an HEP. The indicated that they would be interested in a possible re-eval in 6+ months if indicated. Reviewed with Patient Goals,Home Exercise Program Patient/Caregiver Understanding Good Plan Amount of Therapy Recommended 1-2 Months Frequency of Treatment Once a Week Length of Session 60 Minutes Therapeutic Contents Cognitive-Linguistic Training Provided Patient/Caregiver Instruction Plan of Care
--- NOTE | 2020-07-09 12:28 | ST.OPDS ---
Visit Care Team Role Provider Type Tomi Pathak MD Attending Provider Physician Primary Care Provider Referring Provider Address: [address] [place] [address], [address], [place], [address] HOUSEKEEPING AIDE Treatment Note HOUSEKEEPING AIDE Treatment Note Start: 05/20/20 12:51 Freq: Status: Active Protocol: Document 07/09/20 12:26 LNK (Rec: 07/09/20 12:28 LNK [email or web address]) Speech Pathology Treatment Note Setting Treatment Setting Outpatient Care Visit Type Note Type Discharge Summary General Information General Information Juno Emmanuel is here following a recent hospitalization for CVA/TIA ( 2019) At that time, brain imaging demonstrating small infarct in the right cope radiata, evidence of chronic vascular ischemia. He reports a subtle impairment in his cognition that is difficult for him to describe. Speech therapy assessment as outpatient was recommended. 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 His results of the CLQT+ indicate that deficiencies reported above may severely impact Gustavo?s ability to function independently for ADLs. Subjective Patient/Caregiver Compliance with Home Excellent Exercise Program Objective Short Term Goals Strategies will be developed for memory, organization and planning with Juno and his family. He will successfully use these strategies daily, as reported by Juno and his family [ End ] Code Number Stamper Goals Juno will utilize strategies to assist with performing ADLs. Treatment Activities Juno and his attended today. Juno brought his tablet and demonstrated the games he has been playing on the marilee, [email or web address]. He has used several games assigned, targeting memory, attention, divided attention and speed. Pt and his reported that he has seen improved scores as he continues the games. He has explored other games as well. Juno finds that he is enjoying the games and their challenges. Assessment Progress Towards Goals Excellent Progress Assessment of Improvement Both Juno and his report that they feel Juno is ready and able to continue therapeutic activities at home as an HEP. The indicated that they would be interested in a possible re-eval in 6+ months if indicated. Reviewed with Patient Home Exercise Program Plan Amount of Therapy Recommended No Further Therapy Frequency of Treatment No Further Therapy Therapy Recommendations Discharge from Speech Therapy
== END 2020-07-10 13:59 ==
LOC: SP 09:30
PROVIDERS: PCP Student in an Organized Health Care Education/Training Program; Referring Provider Student in an Organized Health Care Education/Training Program; Visit Provider Student in an Organized Health Care Education/Training Program
DX: G45.9 Transient cerebral ischemic attack, unspecified (principal); R41.3 Other amnesia
CPT/HCPCS: 96125; 97129; 97130

== ENCOUNTER 2020-08-26 08:15 | Outpatient (RCR) | payer MEDICARE, BC, SELFPAY ==
[2020-01-02 10:57] VITALS: BMI 26.8
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
--- NOTE | 2020-08-12 14:04 | PT.OPPOC ---
Physical, Occupational & Speech Therapy At [facility] Current Diagnoses Transient cerebral ischemic attack, unspecified (08/12/20) Repeated falls (08/12/20) Visit Care Team Role Provider Type Tomi Pathak MD Attending Provider Physician Primary Care Provider Referring Provider Specialty: Internal Medicine Address: [address] [place] [address], [address], [address] Email: [email or web address] Plan Of Care PT-OP-T Assessment and Plan Start: 08/12/20 07:25 Freq: Status: Active Protocol: Document 08/12/20 09:47 MB (Rec: 08/12/20 10:30 MB [id number]) Physical Therapy Assessment Rehab Potential Rehabilitation Potential Fair Evaluation Complexity Number of Personal Factors/Comorbidities 1-2 Number of Body Systems Impaired 1-2 Clinical Presentation at Evaluation Stable Impairments Impairments Balance,Gait,Posture,Sensation ,Strength Other Impairments Decreased proprioception left foot d/t two missing digits, pt has cognitive challenges s/ p stroke earlier this year Goals 3 Gis Scientist Goal (LTG) Pt will perform at least 5 reps B SLS heel raises to demonstrate improved PF strength by 10/14/2020. LTG Duration 8 weeks 2 Gis Scientist Goal (LTG) Pt will perform progressive HEP including LE flexibility, strengthening and balance exercises to improve strength, gait and balance by 2019. LTG Duration 8 weeks 1 Gis Scientist Goal (LTG) Pt will present with FGA score to at least 26/30 to reflect decreased fall risk by 2019. LTG Duration 8 weeks Assessment Summary Assessment Pt is a 79 y/o male known to this PT from previous PT course after stroke and left- sided weakness, falls, and cognitive changes. 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 PT provided progressive balance and LE strengthening exercises last PT course and pt has performed some of them. PT asks pt to bring in these exercises next treatment date. He cannot perform heel raise either foot SLS in standing, demonstrating weakness in PFs. He presents with balance impairment with FGA testing today and hip and toe weakness with other MMT. Pt will benefit from PT for strengthening, balance and flexibility exercises. 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 Physical Therapy Plan Frequency and Duration Frequency of Treatment 2x/Week Duration of Treatment 8 weeks Plan of Care Start Date 08/12/20 Plan of Care End Date 10/14/20 Therapeutic Interventions Therapeutic Interventions Balance Training,Canalithic Repositioning,Coordination Training,Gait Training,Home Exercise Program,Manual Therapy,Neuromuscular Re- education,Patient/Caregiver Education,Self-Care/Home Management,Soft Tissue Mobilization,Taping, Therapeutic Activities, Therapeutic Exercises Modalities Cold Pack/Ice Massage,Electric Stimulation,Hot Packs, Ultrasound Next Visit Focus/Plan Next Note Type Treatment Note Next Visit Plan PT asks pt to bring in his HEP from last PT course to review and revise as needed Plan of Care Dates Plan of Care Start Date 08/12/20 Plan of Care End Date 10/14/20 Electronically Signed by: Shyann Esteban, PT 08/12/20 [id number] Please Sign and Return: I have reviewed this Plan of Care and certify that the skilled therapy services above are required to meet the patient?s needs. Physician Signature Date Printed Name and Credentials Clinical Instructor Signature Printed Name and Credentials
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
== END 2020-09-09 12:49 ==
LOC: PHYS 08:15
PROVIDERS: PCP Student in an Organized Health Care Education/Training Program; Referring Provider Student in an Organized Health Care Education/Training Program; Visit Provider Student in an Organized Health Care Education/Training Program
DX: R29.6 Repeated falls (principal); G45.9 Transient cerebral ischemic attack, unspecified
CPT/HCPCS: 97110; 97112; 97161

== ENCOUNTER → 2020-12-02 14:56 | Outpatient (CLI) | payer MEDICARE, BC, SELFPAY ==
[2020-11-20 10:48] VITALS: BMI 26.8
--- NOTE | 2020-12-20 11:58 | P.HOLT.S_ITS ---
[employer] Operator Report Referral & Results Date Patient Seen: 12/02/20 Requesting provider: Tomi Pathak Indication: Palpitations Duration of monitoring (days): 7 Diary information: There were 2 patient triggered events in 2 patient diary entries reported Patient triggered events were associated with (within 45 seconds) sinus rhythm and PVCs Patient diary events were associated with (within 45 seconds) sinus rhythm, PVCs, and PACs Data: Minimum heart rate identified was 49 beats per minute at 01:26 on 12/08/2020 Maximum heart rate was 135 beats per minute at 21:33 on 12/02/2020 Approximately 1.1% of identified beats were supraventricular ectopic in origin which would rate them as occasional Approximately 2.1% of identified beats were ventricular ectopic in origin which would rate them is occasional Patient had 8.2nd run of ventricular trigeminy and a 5.2nd run of ventricular bigeminy Patient had 1 run of SVT/atrial tachycardia with a rate of 121 beats per minute lasting 10 beats Impression: This study demonstrates occasional PVCs and PACs as above. Difficult to connect patient's symptoms of 1 specific dysrhythmia but both are likely culprits No other more significant dysrhythmias identified as above
== END ==
PROVIDERS: PCP Student in an Organized Health Care Education/Training Program; Referring Provider Student in an Organized Health Care Education/Training Program; Visit Provider Student in an Organized Health Care Education/Training Program
DX: R00.2 Palpitations (principal)
CPT/HCPCS: 93242; 93244

== ENCOUNTER → 2021-06-19 10:58 | Outpatient (CLI) | payer MEDICARE, BC, SELFPAY ==
[2020-11-20 10:48] VITALS: BMI 26.8
[2021-06-19 12:06] LABS: Add Manual Diff / Slide Review NO; Basophils Absolute Auto 100 /uL (0-100); Basophils Percent Auto 0.8 % (0-2); Eosinophils Absolute Auto 200 /uL (0-450); Eosinophils Percent Auto 2.1 % (2-4); Hematocrit 43.2 % (41-53); Hemoglobin 14.2 g/dL (13.5-17.5); Lymphocytes Absolute Auto 2600 /uL (1100-4500); Lymphocytes Percent Auto 29.6 % (25-40); Mean Corpuscular HGB Conc 32.9 % (30-36); Mean Corpuscular Hemoglobin 30.8 PG (26-34); Mean Corpuscular Volume 93.5 fL (80-100); Monocytes Absolute Auto 600 /uL (0-900); Monocytes Percent Auto 7.1 % (3-14); Neutrophils Absolute Auto 5300 /uL (1500-7000); Neutrophils Percent Auto 60.4 % (50-75); Platelet Count 253 X10^3/uL (150-400); Red Blood Cell Count 4.62 X10^6/uL (4.5-5.9); Red Cell Distribution Width 14.1 % (11.6-14.8); White Blood Cell Count 8.8 X10^3/uL (4.5-11.0)
[2021-06-19 12:27] LABS: BUN Creatinine Ratio 21.7 (6-22); Blood Urea Nitrogen 18 mg/dL (9-20); Calcium 9.7 mg/dL (8.4-10.2); Carbon Dioxide 20 mmol/L (22-32); Chloride 110 mmol/L (98-107); Estimated Glomerular Filt Rate > 60.0 mL/min (>60); Glucose 101 mg/dL (80-110); HEMOLYSIS < 15 (0-50); Potassium 4.1 mmol/L (3.4-5.1); Sodium 140 mmol/L (137-145)
== END ==
PROVIDERS: PCP Student in an Organized Health Care Education/Training Program; Referring Provider Student in an Organized Health Care Education/Training Program; Visit Provider Student in an Organized Health Care Education/Training Program
DX: E78.00 Pure hypercholesterolemia, unspecified (principal); G45.9 Transient cerebral ischemic attack, unspecified; Z79.899 Other long term (current) drug therapy
CPT/HCPCS: 36415; 80048; 85025

== ENCOUNTER 2021-11-04 11:59 | Observation (INO) | payer MEDICARE, OTHER, SELFPAY ==
[2020-11-20 10:48] VITALS: BMI 26.8
[2021-11-04] VITALS (17 sets, daily range): BP systolic 110–160; BP diastolic 59–83; PULSE 62–102; RESP 14–31; TEMP 36.9–37.1; O2SAT 92–97; BMI 25.8
--- NOTE | 2021-11-04 12:23 | DI.RAD.S_ITS ---
PROCEDURE: XR CHEST 1V INDICATIONS: Possible stroke TECHNIQUE: One view of the chest was acquired. COMPARISON: None. FINDINGS: Surgical changes and devices: None. Lungs and pleura: Mild bibasilar densities may represent atelectasis.. No pleural effusions or pneumothorax. Mediastinum: Mediastinal contours appear normal. Heart size is normal. Bones and chest wall: No suspicious bony lesions. Overlying soft tissues appear unremarkable. IMPRESSION: Mild bibasilar densities may represent atelectasis. Dictated by: Constantin Alejandre M.D. on 11/04/2021 at 12:47 Approved by: Constantin Alejandre M.D. on 11/04/2021 at 12:56
--- NOTE | 2021-11-04 12:26 | DI.CT.S_ITS ---
PROCEDURE: CT STROKE INDICATIONS: unable to move right wrist TECHNIQUE: Noncontrast 4.5 mm thick angled axial sections acquired from the foramen magnum to the vertex, with coronal reformats. For radiation dose reduction, the following was used: automated exposure control, adjustment of mA and/or kV according to patient size. COMPARISON: [facility], CT, CT STROKE, 01/02/2020, 8:09. FINDINGS: Image quality: Excellent. CSF spaces: Basal cisterns are patent. No extra-axial fluid collections. The ventricles are symmetric in size and shape. Brain: No intracranial bleeds or masses. There is moderate cerebral volume loss for age, with resultant ventricular and sulcal prominence. There are moderate periventricular and deep white matter chronic small vessel ischemic changes. A hypodensity in the left parietal lobe was present on 01/02/2020, probably infarct. There is intracranial internal carotid artery atherosclerosis. Skull and face: Calvarium and visualized facial bones appear intact, without suspicious lesions. Sinuses: Visualized sinuses and mastoids are clear. IMPRESSION: 1. No acute intracranial abnormalities. 2. Cerebral volume loss and chronic microvascular ischemic changes. The result was discussed with Dr. Desai prior to dictation. This study fulfills neurological imaging criteria for inclusion or exclusion of acute stroke therapies based on available published neurological guidelines. Dictated by: Prince Bradley M.D. on 11/04/2021 at 12:39 Approved by: Prince Bradley M.D. on 11/04/2021 at 12:42
[2021-11-04 12:34] LABS: Add Manual Diff / Slide Review NO; Basophils Absolute Auto 100 /uL (0-100); Basophils Percent Auto 0.7 % (0-2); Eosinophils Absolute Auto 200 /uL (0-450); Eosinophils Percent Auto 2.4 % (2-4); Hematocrit 43.7 % (41-53); Hemoglobin 14.8 g/dL (13.5-17.5); Lymphocytes Absolute Auto 2400 /uL (1100-4500); Lymphocytes Percent Auto 23.2 % (25-40); Mean Corpuscular HGB Conc 33.9 % (30-36); Mean Corpuscular Hemoglobin 31.3 PG (26-34); Mean Corpuscular Volume 92.1 fL (80-100); Monocytes Absolute Auto 700 /uL (0-900); Monocytes Percent Auto 6.3 % (3-14); Neutrophils Absolute Auto 7000 /uL (1500-7000); Neutrophils Percent Auto 67.4 % (50-75); Platelet Count 250 X10^3/uL (150-400); Red Blood Cell Count 4.74 X10^6/uL (4.5-5.9); Red Cell Distribution Width 13.9 % (11.6-14.8); White Blood Cell Count 10.4 X10^3/uL (4.5-11.0)
[2021-11-04 12:37] LABS: Prothrombin Time 11.5 SECONDS (10.1-12.7)
[2021-11-04 12:40] LABS: PTT Partial Thromboplastin Tim 31 SECONDS (26.4-36.2)
[2021-11-04 12:43] LABS: Alanine Aminotransferase 33 IU/L (<50); Albumin 4.5 g/dL (3.5-5.0); Albumin Globulin Ratio 1.6 (1.0-2.8); Alkaline Phosphatase 71 U/L (38-126); Aspartate Aminotransferase 30 IU/L (17-59); BUN Creatinine Ratio 14.3 (6-22); Bilirubin Total 0.9 mg/dL (0.2-1.3); Blood Urea Nitrogen 15 mg/dL (9-20); Calcium 9.6 mg/dL (8.4-10.2); Carbon Dioxide 23 mmol/L (22-32); Chloride 107 mmol/L (98-107); Creatine Kinase 86 U/L (55-170); Estimated Glomerular Filt Rate > 60.0 mL/min (>60); Globulin 2.8 g/dL (1.7-4.1); Glucose 98 mg/dL (80-110); HEMOLYSIS < 15 (0-50); Potassium 4.1 mmol/L (3.4-5.1); Sodium 139 mmol/L (137-145); Total Protein 7.3 g/dL (6.3-8.2)
--- NOTE | 2021-11-04 12:49 | ED_ITS ---
HPI - Neuro Symptoms/Deficit General Chief Complaint: Neuro Symptoms/Deficit Stated Complaint: confused and dizzy Time Seen by Provider: 11/04/21 12:26 Source: patient Mode of arrival: Ambulatory History of Present Illness HPI Narrative: Patient is a 81-year-old male. Two years ago had a stroke. Has no residual deficits from this. Is on aspirin and Plavix. Is here today because he was trying to write some [employer] cards when he noticed that he was unable to write. His who is at bedside also thought that maybe he was not speaking appropriately. He also states that he was somewhat dizzy at the time. He does have a history of vertigo and felt that this was different than his normal vertigo. All of his symptoms have now completely resolved. He did not fall. He denies chest pain, palpitations, headache, vision changes, abdominal pain, nausea vomiting. On Anticoagulants: Yes (plavix) Related Data Home Medications Medication Instructions Recorded Confirmed CoQ-10 1 cap PO DAILY 01/02/20 06/19/21 Vitamin B-12 1 tab PO DAILY 01/02/20 06/19/21 Vitamin B3 1 tab PO DAILY 01/02/20 06/19/21 Vitamin D3 1 cap PO DAILY 01/02/20 06/19/21 ascorbic acid (vitamin C) 500 mg 500 mg PO DAILY 01/02/20 06/19/21 chewable tablet (Vitamin C) meclizine 25 mg tablet 25 mg PO Q6HP PRN 01/02/20 06/19/21 multivitamin 1 tab PO DAILY 01/02/20 06/19/21 aspirin 81 mg tablet,delayed 81 mg PO DAILY 01/11/20 06/19/21 release Previous Rx's Medication Instructions Recorded atorvastatin 40 mg tablet 40 mg PO BEDTIME #90 tab 01/15/21 clopidogrel 75 mg tablet 75 mg PO DAILY 30 Days #90 tab 01/15/21 Allergies Allergy/AdvReac Type Severity Reaction Status Date / Time No Known Drug Allergies Allergy Verified 11/04/21 12:15 Review of Systems Constitutional Constitutional: Denies fever(s), Denies frequent falls and Denies headache(s) Eyes Eyes: Denies change in vision ENT Ears, Nose, Mouth, and Throat: Reports system reviewed and no additional complaints, except as documented, Denies vertigo, Reports dizziness and Denies headache(s) Cardiovascular Cardiovascular: Reports as per HPI and Reports system reviewed and no additional complaints, except as documented Respiratory Respiratory: Reports as per HPI and Reports system reviewed and no additional complaints, except as documented Gastrointestinal Gastrointestinal: Reports as per HPI and Reports system reviewed and no additional complaints, except as documented Musculoskeletal Musculoskeletal: Reports system reviewed and no additional complaints, except as documented and Reports as per HPI Integumentary/Breasts Skin/Breast: Reports system reviewed and no additional complaints, except as documented Neurologic Neurologic: Reports system reviewed and no additional complaints, except as documented, Reports as per HPI, Reports abnormal speech, Denies vertigo, Reports dizziness, Denies frequent falls and Denies headache(s) Hematologic/Lymphatic On Anticoagulants: Yes (plavix) Allergic/Immunologic Allergic/Immunologic: Reports system reviewed and no additional complaints, except as documented Patient History Medical History Arthritis Colon polyps (2000) Diverticular disease Hearing loss History of basal cell carcinoma (BCC) History of SCC (squamous cell carcinoma) of skin Hyperlipidemia TIA (transient ischemic attack) Vertigo (2006) Surgical History History of basal cell carcinoma (BCC) excision History of colonoscopy with polypectomy (10/24/13) History of colonoscopy with polypectomy (05/24/07) History of colonoscopy with polypectomy (01/24/04) History of squamous cell carcinoma excision Status post amputation of extremity Status post rotator cuff repair (2005) Family History Mother Diabetes mellitus Hypertension Father Heart failure Heart disease Social History household members: spouse Smoking Status: Never smoker alcohol intake: current substance use type: does not use Smoking Status: Never smoker alcohol intake frequency: holidays/special occasions only Substance Use Type: does not use Exam Initial Vital Signs Initial Vital Signs: Vital Signs Pulse Oximetry 97 11/04/21 12:09 Const General: cooperative, comfortable, well developed and well groomed Limitations: mental status not altered HENMT Head: normal to inspection and normocephalic Resp Effort & Inspection: normal respiratory effort Auscultation: clear to auscultation bilaterally Cardio Rate: regular rate Rhythm: regular rhythm GI Inspection: non-distended Palpation: soft and No tender Back/Spine/Pelvis Back: normal to inspection and back tenderness Skin General: no rashes or lesions noted Neuro General: patient alert, patient awake and patient oriented x3 Cranial Nerves: CN's II-XI intact bilaterally Cognition: normal cognition Speech: speech normal Gait: normal gait Motor: muscle tone normal throughout Sensory Exam: no sensory deficits noted Coordination: [id number] test normal Extrem General: normal to inspection and capillary refill normal Psych Appearance: grossly normal and well kempt Scores ABCD2 Age >= 60 years: yes Initial BP. Either SBP >= 140 or DBP >= 90.: yes Clinical features of the TIA: other symptoms Duration of symptoms: 10-59 minutes History of diabetes: no ABCD2 Score: 3 GCS [place] coma scale eye opening: Spontaneous [place] coma scale verbal response: Orientated [place] coma scale motor response: Obey commands [place] coma scale total score: 15 NIH Stroke Scale Level of Conciousness: Alert, keenly responsive Ask month/age: Answers both questions correctly. Open/close eyes, close hand: Performs both tasks correctly Best gaze horizontal: Normal Visual burciaga: No visual loss Facial palsy: Normal symetrical movement Left arm drift: No drift for full 10 sec Right arm drift: No drift for full 10 sec Left leg drift: No drift for full 5 sec Right leg drift: No drift for full 5 sec Limb ataxia: Absent Sensory on face/arms/legs: Normal, no sensory loss Best language: No aphasia, normal Dysarthria: Normal Extinction or inattention: No abnormality Total NIH Stroke scale score: 0 Course Orders Ordered: ED Orders 11/04/21 12:23 XR chest 1V Stat EKG-12 Lead Stat 11/04/21 12:25 Complete Blood Count AUTO DIFF Stat Comprehensive Metabolic Panel Stat Partial Thromboplastin Time Stat Prothrombin Time INR Stat Troponin & CK Cardiac Panel Stat 11/04/21 12:26 CT Stroke Stat Vital Signs Vital signs: Vital Signs - 8 hr 11/04/21 12:09 11/04/21 12:10 11/04/21 12:35 Temperature 98.4 F Pulse Rate 81 78 Respiratory Rate 14 Blood Pressure 160/81 H Pulse Oximetry 97 97 94 11/04/21 12:36 11/04/21 13:00 11/04/21 13:30 Temperature Pulse Rate 78 71 62 Respiratory Rate 19 18 14 Blood Pressure 139/67 126/65 116/61 Pulse Oximetry 95 95 96 11/04/21 14:00 Temperature Pulse Rate 63 Respiratory Rate 15 Blood Pressure Pulse Oximetry 96 MDM - Neuro Symptoms/Deficit Medical Records Attestation: I reviewed the patient's medical records. Lab Data Attestation: I reviewed the patient's lab results. Result diagrams: 11/04/21 12:25 11/04/21 12:25 Labs: Lab Results 11/04/21 11/04/21 11/04/21 Range/Units 12:25 12:25 12:25 WBC 10.4 (4.5-11.0) X10^3/uL RBC 4.74 (4.5-5.9) X10^6/uL Hgb 14.8 (13.5-17.5) g/dL Hct 43.7 (41-53) % MCV 92.1 (80-100) fL MCH 31.3 (26-34) PG MCHC 33.9 (30-36) % RDW 13.9 (11.6-14.8) % Plt Count 250 (150-400) X10^3/uL Neut % (Auto) 67.4 (50-75) % Lymph % (Auto) 23.2 L (25-40) % Young % (Auto) 6.3 (3-14) % Eos % (Auto) 2.4 (2-4) % Baso % (Auto) 0.7 (0-2) % Neut # (Auto) 7000 (8216-6913) /uL Lymph # (Auto) 2400 (9462-6737) /uL [place] # (Auto) 700 (0-900) /uL Eos # (Auto) 200 (0-450) /uL Baso # (Auto) 100 (0-100) /uL PT 11.5 (10.1-12.7) SECONDS INR 1.0 (0.9-1.3) APTT 31 (26.4-36.2) SECONDS Sodium 139 (137-145) mmol/L Potassium 4.1 (3.4-5.1) mmol/L Chloride 107 (98-107) mmol/L Carbon Dioxide 23 (22-32) mmol/L BUN 15 (9-20) mg/dL Creatinine 1.05 (0.66-1.25) mg/dL Estimated GFR > 60.0 (>60) mL/min BUN/Creatinine Ratio 14.3 (6-22) Glucose 98 (80-110) mg/dL Calcium 9.6 (8.4-10.2) mg/dL Total Bilirubin 0.9 (0.2-1.3) mg/dL AST 30 (17-59) IU/L ALT 33 (<50) IU/L Alkaline Phosphatase 71 (38-126) U/L Total Creatine Kinase 86 (55-170) U/L CK-MB (CK-2) TNP CK-MB (CK-2) Rel Index TNP Troponin I < 0.012 (0.01-0.034) ng/mL Total Protein 7.3 (6.3-8.2) g/dL Albumin 4.5 (3.5-5.0) g/dL Globulin 2.8 (1.7-4.1) g/dL Albumin/Globulin Ratio 1.6 (1.0-2.8) Imaging Data Chest x-ray: Radiologist's Impression: [address] [address] XRay Report Signed Patient: Juno Emmanuel MR#: [id number] : 1940 Acct:[id number] Age/Sex: 81 / M Date of Service: 11/04/21 Loc: Accession Number: [id number] ?? Procedure: XR chest 1V Ordering Provider: Edmundo Desai D.O. PROCEDURE:? XR CHEST 1V ? INDICATIONS:? Possible stroke ? TECHNIQUE:? One view of the chest was acquired.? ? COMPARISON:? None. ? FINDINGS:? ? Surgical changes and devices:? None.? ? Lungs and pleura:? Mild bibasilar densities may represent atelectasis..? No pleural effusions or pneumothorax.? ? Mediastinum:? Mediastinal contours appear normal.? Heart size is normal.? ? Bones and chest wall:? No suspicious bony lesions.? Overlying soft tissues appear unremarkable.? ? IMPRESSION:? Mild bibasilar densities may represent atelectasis. ? ? Dictated by: Constantin Alejandre M.D. on 11/04/2021 at 12:47 ? ? Approved by: Constantin Alejandre M.D. on 11/04/2021 at 12:56? CT scan - head: Radiologist's Impression: Close Brain CT (Signed) MirnaSherry stevensandrae - 11/04/21 Chest X-Ray (Signed) Constantin Alejandre - 11/04/21 DI Result CC 12/20/20 Foot X-Ray (Signed) KashmirNorman - 03/12/20 Echocardiogram Ultrasound (Signed) Virgilio Hicks - 01/08/20 Telemetry Strips 01/03/20 Neck Magnetic Resonance Angiography (Signed) Amina Newsome - 01/02/20 Brain MRI (Signed) Amina Newsome - 01/02/[address] (Signed) CarvajalPramod - 01/02/20 Hand X-Ray (Signed) Kwabena Love - 04/17/19 Telemetry Strips 03/28/19 Launch?[place] [address] CT Scan Report Signed Patient: Juno Emmanuel MR#: [id number] : 1940 Acct:[id number] Age/Sex: 81 / M Date of Service: 11/04/21 Loc: ED Accession Number: [id number] ?? Procedure: CT Stroke Ordering Provider: Edmundo Desai D.O. PROCEDURE:? CT STROKE ? INDICATIONS:? unable to move right wrist ? TECHNIQUE:? Noncontrast 4.5 mm thick angled axial sections acquired from the foramen magnum to the vertex, with coronal reformats.? For radiation dose reduction, the following was used:? automated exposure control, adjustment of mA and/or kV according to patient size.? ? COMPARISON:? [facility], CT, CT STROKE, 01/02/2020, 8:09. ? FINDINGS:? Image quality:? Excellent.? ? CSF spaces:? Basal cisterns are patent.? No extra-axial fluid collections.? The ventricles are symmetric in size and shape.? ? Brain:? No intracranial bleeds or masses.? There is moderate cerebral volume loss for age, with resultant ventricular and sulcal prominence.? There are moderate periventricular and deep white matter chronic small vessel ischemic changes.? A hypodensity in the left parietal lobe was present on 01/02/2020, probably infarct.? There is intracranial internal carotid artery atherosclerosis.? ? Skull and face:? Calvarium and visualized facial bones appear intact, without suspicious lesions.? ? Sinuses:? Visualized sinuses and mastoids are clear.? ? IMPRESSION:? ? 1. No acute intracranial abnormalities. ? 2. Cerebral volume loss and chronic microvascular ischemic changes. ? The result was discussed with Dr. Desai prior to dictation. ? This study fulfills neurological imaging criteria for inclusion or exclusion of acute stroke therapies based on available published neurological guidelines.? ? ? Dictated by: Prince Bradley M.D. on 11/04/2021 at 12:39 ? ? Approved by: Prince Bradley M.D. on 11/04/2021 at 12:42?? ECG Data Attestation: I personally reviewed and interpreted this ECG as follows: Interpretation: Sinus rhythm Ventricular rate is 71 Normal axis The bundle branch block No ST T wave changes MDM Narrative Medical decision making narrative: Patient is asymptomatic the time of my exam. Has a ABCD2 score of 4. Left bundle branch on his EKG. Review of his medical record shows that he did have fairly extensive workup was 2 years ago when he had his last CVA. Plan will be is to admit him to the hospital for further evaluation and treatment of his TIA. I did discuss this with Dr. Deluca with Internal Medicine who agrees with the admission. Discussed this with the patient and his was at bedside. They expressed understanding and agreement. Discharge Plan Departure Patient Disposition: Admitted as Observation Clinical Impression: Brain TIA Admit Date/Time: 11/04/21 14:08 Admit Provider: Dee Deluca
[2021-11-04 12:54] LABS: Troponin I < 0.012 ng/mL (0.01-0.034)
--- NOTE | 2021-11-04 18:03 | PC.NURSE ---
late entry, on arrival pt unable to write clearly, resolved 30min later and was able to write as his normal
--- NOTE | 2021-11-04 18:46 | PC.NURSE ---
Admit note: pt up from ER at approximately 1820. Yesika Velázquez RN at bedside helping patient get settled into room, orient to call light, and start admission questions. No distress noted. Pt is eating dinner from the cafeteria. Covid swab done in ER. Results are not back yet.
[2021-11-04 19:53] LABS: COVID19 - ADMIT (NP swab/PCR) Negative (Negative)
--- NOTE | 2021-11-04 19:58 | DI.MRI.S_ITS ---
PROCEDURE: MR HEAD/BRAIN WO CON INDICATIONS: tia? TECHNIQUE: Non-contrast axial T1 spin echo, axial T2 fast spin echo, sagittal and axial FLAIR, coronal T2 fast spin echo, axial gradient echo, axial diffusion and ADC through the brain. COMPARISON: MR, BRAIN WITHOUT CONTRAST, 01/14/2017, 15:55. MR, MR ANGIO NECK W CON, 01/02/2020, 15:06. MR, MR HEAD/BRAIN WO CON, 01/02/2020, 14:47. [facility], CT, CT STROKE, 11/04/2021, 12:34. FINDINGS: Image quality: Excellent. CSF spaces: Ventricles appear symmetric in size and shape. Basal cisterns are patent. No extra-axial fluid collections. Brain: No intracranial bleeds or mass effects. There is mild cerebral volume loss for age. There are mild periventricular and deep white matter chronic small vessel ischemic changes. Probably a small old subcortical infarct in the left parietal lobe. Brainstem appears normal. Diffusion-weighted images show no acute ischemic insults. No chronic ischemic insults. Normal intravascular flow voids are present. Skull and face: Calvarial bone marrow is normal in signal. Orbits are normal. Sinuses: Sinuses and mastoids are clear. IMPRESSION: 1. No acute intracranial abnormalities. 2. Cerebral volume loss and chronic microvascular ischemic changes. Dictated by: Prince Bradley M.D. on 11/05/2021 at 8:40 Approved by: Prince Bradley M.D. on 11/05/2021 at 8:45
--- NOTE | 2021-11-04 20:39 | PM.HP.1 ---
History of Present Illness History of Present Illness Date Patient Seen: 11/04/21 Time Patient Seen: 20:00 Chief complaint: confused and dizzy Narrative: Mr. Emmanuel is a 81M with PMH TIA, vertigo who presents with sudden onset dizziness, ataxia, and speech abnormality. He states he was in his normal state of health until today when he was trying to write мария cards and noticed he was unable to do so. His noted some slight speech changes. He had dizziness associated with this. He had no swallowing difficulties, vision changes, weakness, numbness that he noted. He had no chest pain, shortness of breath, fevers/chills, headache. He does have vertigo but feels this episode was different than his past episodes. His symptoms completely resolved prior to presenting to the ED. In the ED workup was done, vitals notable only for blood pressure elevated at 160/81. Labs notable for WBC 10.4, INR 1.0, creatinine 1.05, troponin negative. Chest xray showed mild bibasilar densitities possibly atelectasis. CT head showed no acute process. He was admitted for further treatment. Patient History Medical History Arthritis Colon polyps (2000) Diverticular disease Hearing loss History of basal cell carcinoma (BCC) History of SCC (squamous cell carcinoma) of skin Hyperlipidemia TIA (transient ischemic attack) Vertigo (2006) Surgical History History of basal cell carcinoma (BCC) excision History of colonoscopy with polypectomy (10/24/13) History of colonoscopy with polypectomy (05/24/07) History of colonoscopy with polypectomy (01/24/04) History of squamous cell carcinoma excision Status post amputation of extremity Status post rotator cuff repair (2005) Family & Social History Family History Mother Diabetes mellitus Hypertension Father Heart failure Heart disease Social History: household members spouse Safety & Behavioral: Feels Safe in Current Yes Environment Been Physically Hurt or No Threatened By a Person Tobacco & Substance use: Smoking Status Never smoker alcohol intake current alcohol intake frequency holiday/special occasion Substance Use Type does not use Meds Home Medications and Allergies Home Medications Medication Instructions Recorded Confirmed Type CoQ-10 1 cap PO DAILY 01/02/20 06/19/21 History Vitamin B-12 1 tab PO DAILY 01/02/20 06/19/21 History Vitamin B3 1 tab PO DAILY 01/02/20 06/19/21 History Vitamin D3 1 cap PO DAILY 01/02/20 06/19/21 History ascorbic acid (vitamin C) 500 mg 500 mg PO DAILY 01/02/20 06/19/21 History chewable tablet (Vitamin C) meclizine 25 mg tablet 25 mg PO Q6HP PRN 01/02/20 06/19/21 History multivitamin 1 tab PO DAILY 01/02/20 06/19/21 History aspirin 81 mg tablet,delayed 81 mg PO DAILY 01/11/20 06/19/21 History release atorvastatin 40 mg tablet 40 mg PO BEDTIME #90 tab 01/15/21 06/19/21 Rx clopidogrel 75 mg tablet 75 mg PO DAILY 30 Days #90 tab 01/15/21 06/19/21 Rx Allergies Allergy/AdvReac Type Severity Reaction Status Date / Time No Known Drug Allergies Allergy Verified 11/04/21 12:15 Review of Systems Review of Systems Narrative: 14 systems reviewed and negative aside from what is noted in HPI Exam Vital Signs (past 8 hours): - 11/04/21 13:00 11/04/21 13:30 11/04/21 14:00 Pulse Rate 71 62 63 Respiratory Rate 18 14 15 Blood Pressure 126/65 116/61 Pulse Oximetry 95 96 96 11/04/21 14:30 11/04/21 14:31 11/04/21 15:00 Pulse Rate 66 68 67 Respiratory Rate 23 20 26 H Blood Pressure 129/80 124/83 Pulse Oximetry 97 97 97 11/04/21 15:30 11/04/21 16:00 11/04/21 16:30 Pulse Rate 67 87 70 Respiratory Rate 15 25 H 15 Blood Pressure 120/78 116/74 110/59 L Pulse Oximetry 95 96 95 11/04/21 17:00 11/04/21 17:33 11/04/21 17:34 Pulse Rate 75 94 H 102 H Respiratory Rate 14 31 H Blood Pressure 119/70 134/78 Pulse Oximetry 95 96 95 Oxygen Delivery Method Room Air Narrative Exam Narrative: GEN: no acute distress HEENT: moist mucous membranes, PERRL NECK: trachea midline, no JVD CV: regular rate and rhythm, no murmurs PULM: clear bilaterally, no wheezes, rhonchi, rales ABD: soft, nontender, nondistended, no organomegaly, normal bowel sounds EXT: warm and well perfused, no edema NEURO: awake, alert, oriented, cranial 2-12 intact, speech fluent, no facial droop, no sensory deficits, upper and lower extremity 5/5 strength SKIN: no rashes noted PSYCH: pleasant, cooperative Objective Labs Result Diagrams: 11/04/21 12:25 11/04/21 12:25 Labs: Laboratory Results - last 24 hr 11/04/21 11/04/21 11/04/21 12:25 12:25 12:25 WBC 10.4 RBC 4.74 Hgb 14.8 Hct 43.7 MCV 92.1 MCH 31.3 MCHC 33.9 RDW 13.9 Plt Count 250 Neut % (Auto) 67.4 Lymph % (Auto) 23.2 L [place] % (Auto) 6.3 Eos % (Auto) 2.4 Baso % (Auto) 0.7 Neut # (Auto) 7000 Lymph # (Auto) 2400 [place] # (Auto) 700 Eos # (Auto) 200 Baso # (Auto) 100 PT 11.5 INR 1.0 APTT 31 Sodium 139 Potassium 4.1 Chloride 107 Carbon Dioxide 23 BUN 15 Creatinine 1.05 Estimated GFR > 60.0 BUN/Creatinine Ratio 14.3 Glucose 98 Calcium 9.6 Total Bilirubin 0.9 AST 30 ALT 33 Alkaline Phosphatase 71 Total Creatine Kinase 86 CK-MB (CK-2) TNP CK-MB (CK-2) Rel Index TNP Troponin I < 0.012 Total Protein 7.3 Albumin 4.5 Globulin 2.8 Albumin/Globulin Ratio 1.6 SARS-CoV-2 (PCR) 11/04/21 18:10 WBC RBC Hgb Hct MCV MCH MCHC RDW Plt Count Neut % (Auto) Lymph % (Auto) [place] % (Auto) Eos % (Auto) Baso % (Auto) Neut # (Auto) Lymph # (Auto) [place] # (Auto) Eos # (Auto) Baso # (Auto) PT INR APTT Sodium Potassium Chloride Carbon Dioxide BUN Creatinine Estimated GFR BUN/Creatinine Ratio Glucose Calcium Total Bilirubin AST ALT Alkaline Phosphatase Total Creatine Kinase CK-MB (CK-2) CK-MB (CK-2) Rel Index Troponin I Total Protein Albumin Globulin Albumin/Globulin Ratio SARS-CoV-2 (PCR) Negative Assessment & Plan Assessment & Plan narrative: Mr. Emmanuel is a 81M with PMH TIA, HL who presents with dizziness, ataxia, speech difficulties. 1. Possible TIA -initially had dizziness, ataxia, speech difficulties, symptoms resolved prior to arriving in hospital -etiology is TIA vs vertigo most likely -continue asa, plavix, statin -CT head showed no acute process -MRI head ordered, ECHO ordered -lipids, A1c ordered for risk stratification -allow permissive hypertension -PT/OT speech therapy ordered -NIH qshift 2. Hyperlipidemia -continue statin 3. Vertigo -no symptoms currently, meclizine prn CODE: Full Proxy: Kiersten Emmanuel, I have utilizied all available resources to reconcile patient's home medications. Time Spent With Patient Critical Care time: I spent a total of [] minutes of critical care time on this patient's care today; this time is exclusive of procedural time. Quality MIPS - Admit I confirm the patient?s Advance Care Plan is present, Code status is documented, Surrogate decision maker is in patient?s record [If Yes, STOP here]: Yes
[2021-11-04] MEDS: ATORVASTATIN 20 MG TABLET 80 MG PO (20:53)
[2021-11-05 02:16] VITALS: BP 98/63; PULSE 64; RESP 19; TEMP 36.8; O2SAT 94
[2021-11-05 05:52] LABS: Add Manual Diff / Slide Review NO; Basophils Absolute Auto 100 /uL (0-100); Eosinophils Absolute Auto 500 /uL (0-450); Eosinophils Percent Auto 5.2 % (2-4); Hematocrit 41.8 % (41-53); Hemoglobin 14.3 g/dL (13.5-17.5); Lymphocytes Absolute Auto 2500 /uL (1100-4500); Lymphocytes Percent Auto 26.2 % (25-40); Mean Corpuscular HGB Conc 34.3 % (30-36); Mean Corpuscular Hemoglobin 31.1 PG (26-34); Mean Corpuscular Volume 90.8 fL (80-100); Monocytes Absolute Auto 800 /uL (0-900); Neutrophils Absolute Auto 5600 /uL (1500-7000); Neutrophils Percent Auto 59.6 % (50-75); Platelet Count 221 X10^3/uL (150-400); Red Cell Distribution Width 13.8 % (11.6-14.8); White Blood Cell Count 9.4 X10^3/uL (4.5-11.0)
[2021-11-05 05:56] LABS: BUN Creatinine Ratio 17.8 (6-22); Blood Urea Nitrogen 19 mg/dL (9-20); Calcium 9.1 mg/dL (8.4-10.2); Carbon Dioxide 24 mmol/L (22-32); Chloride 109 mmol/L (98-107); Cholesterol 115 mg/dL (140-199); Estimated Glomerular Filt Rate > 60.0 mL/min (>60); Glucose 91 mg/dL (80-110); HDL Cholesterol 36 mg/dL (40-60); HEMOLYSIS < 15 (0-50); LDL Cholesterol Calculated 52 mg/dL (<100); Potassium 4.4 mmol/L (3.4-5.1); Sodium 138 mmol/L (137-145); Triglycerides 135 mg/dL (35-150)
[2021-11-05 06:11] LABS: Hemoglobin A1C% w Est Avg Glu 5.2 % (4.0-6.0)
[2021-11-05 07:00] VITALS: O2SAT 94
--- NOTE | 2021-11-05 08:13 | DI.ECHO.S_ITS ---
[facility]---------+ [facility] +---------+ : : [address] : : : : [id number] : : : : Phone: [phone]+ Echocardiogram Report + + :Name: KORY TORRES Study Date: 11/05/2021 Height: 68 in : :[facility] [employer] [facility] ReadingLocation: Weight: 170 lb : : Gender: Male BSA: 1.9 m2 : :: 1940 Age: 81 yrs BP: 141/77 mmHg: :Reason For Study: R/O EMBOLIC SOURCE : :Ordering Physician: JAYLEN, : :KIRAN Performed By: Jennifer Valle : :Referring: KIRAN YORK : + + Interpretation Summary The left ventricle is normal in size. The ejection fraction is estimated to be 45-50%. There has been no significant change in LVEF since the previous exam. There is a significant dyssynchronous contraction pattern, consistent with a conduction abnormality. The right ventricle is normal in size and function. There is mild aortic stenosis. The calculated aortic valve area is 1.9 cm2. There is mild aortic regurgitation. Compared to the prior echo study, there has been a decrease in the severity of aortic regurgitation. The IVC is of normal diameter and collapses greater than 50% with a sniff. This suggests a low right atrial pressure of 3 mm Hg. Mild atherosclerotic plaque(s) in the aortic arch. Injection of contrast documented an interatrial shunt. Consider RUBIA to assess possibility of PFO/ASD. Procedure: A two-dimensional transthoracic echocardiogram with color flow and Doppler was performed. The study quality was technically adequate. Comparison is made with the echocardiogram of 01/08/2020. A saline contrast injection was performed to assess for cardiac shunting. The injection was performed through an intravenous line in the left arm. The patient was in sinus rhythm with heart rates between 73-88 bpm during the exam. The patient had a bundle branch block rhythm during the exam. Left Ventricle: The left ventricle is normal in size. Proximal septal thickening is noted. There is no echo evidence for significant left ventricular outflow tract obstruction. There is no thrombus. The ejection fraction is estimated to be 45-50%. There has been no significant change since the previous exam. There is a significant dyssynchronous contraction pattern, consistent with a conduction abnormality. Diastolic parameters suggest a relaxation abnormality of the left ventricle, consistent with probable normal filling pressures. Right Ventricle: The right ventricle is normal in size and function. Atria: The left atrial size is normal. Both atria have remained unchanged in size since the prior echo exam. Right atrial size is normal. Injection of contrast documented an interatrial shunt. Mitral Valve: There is mild mitral annular calcification. There is trace mitral regurgitation. Aortic Valve: The aortic valve is mildly calcified. There is mild aortic valve sclerosis. The aortic valve is not well visualized. There is mildly reduced leaflet mobility. The peak aortic velocity is 2.26 m/sec. The aortic valve mean gradient is 11 mmHg. The calculated aortic valve area is 1.9 cm2. There is mild aortic stenosis. There is mild aortic regurgitation. Compared to the prior echo study, there has been a decrease in the severity of aortic regurgitation. Tricuspid Valve: Tricuspid leaflets are thickened. There is trace tricuspid regurgitation. The right ventricular systolic pressure is estimated to be at least 30 mmHg based on an estimated right atrial pressure of 3 mm Hg. Pulmonic Valve: The pulmonic valve is not well visualized. There is no pulmonic valvular regurgitation. Great Vessels: The aortic root is normal size. The ascending aorta could not be visualized. Mild atherosclerotic plaque(s) in the aortic arch. The IVC is of normal diameter and collapses greater than 50% with a sniff. This suggests a low right atrial pressure of 3 mm Hg. Pericardium/ Pleura There is no pericardial effusion. There is no pleural effusion. MMode/2D Measurements & Calculations LVIDd: 3.7 cm LVOT diam: 2.2 cm LVIDs: 2.5 cm Ao root diam: 3.8 cm FS: 33.2 % IVSd: 1.2 cm LVPWd: 1.0 cm LV samuel. diameter/BSA (cm/m^2): 2.0 LV sys. diameter/BSA (cm/m^2): 1.3 LA A2 area: 17.3 cm2 RA long axis: 4.2 cm LA A4 area: 19.4 cm2 RA area: 14.1 cm2 LA length (vol): 5.5 cm RA vol: 40.4 ml LA vol: 51.5 ml RA : 21.2 ml/m2 LA vol index: 27.0 ml/m2 IVC diam: 1.2 cm RVD1 (basal): 3.5 cm TAPSE: 2.1 cm Doppler Measurements & Calculations Ao V2 max: 226.4 cm/sec LVOT Max Yousif: 113.1 cm/sec Ao V2 mean: 158.9 cm/sec LV V1 max P.1 mmHg Ao max P.2 mmHg LV V1 VTI: 20.8 cm Ao mean P.0 mmHg NAZARIO(I,D): 2.0 cm2 Ao V2 VTI: 39.3 cm NAZARIO(V,D): 1.9 cm2 sev ratio: 0.53 NAZARIO indexed to BSA (cm^2/m^2): 1.0 MV E max yousif: 51.2 cm/sec TR max yousif: 261.7 cm/sec MV A max yousif: 92.5 cm/sec TR max P.4 mmHg MV E/A: 0.55 PA pr(Accel): 32.8 mmHg Med Peak E' Yousif: 5.0 cm/sec E/E' med: 10.1 Lat Peak E' Yousif: 8.1 cm/sec E/E' lat: 6.3 E/e' average: 8.2 MV dec time: 0.26 sec SV(LVOT): 78.6 ml Reading Physician:12:03 PM
[2021-11-05 09:09] VITALS: BP 114/56; PULSE 59; RESP 18; TEMP 36.6; O2SAT 96
[2021-11-05] MEDS: ASPIRIN EC 81 MG TABLET PO (09:25)
[2021-11-05] MEDS: CLOPIDOGREL 75 MG TABLET PO (09:25)
[2021-11-05] MEDS: ENOXAPARIN 40 MG/0.4 ML SYRINGE SUBCUT (09:25)
--- NOTE | 2021-11-05 10:34 | PM.DS.1 ---
History of Present Illness History of Present Illness Date Patient Seen: 11/05/21 Time Patient Seen: 10:36 Chief complaint: confused and dizzy Narrative: Mr. Emmanuel is a 81M with PMH TIA, vertigo who presents with sudden onset dizziness, ataxia, and speech abnormality. He states he was in his normal state of health until today when he was trying to write мария cards and noticed he was unable to do so. His noted some slight speech changes. He had dizziness associated with this. He had no swallowing difficulties, vision changes, weakness, numbness that he noted. He had no chest pain, shortness of breath, fevers/chills, headache. He does have vertigo but feels this episode was different than his past episodes. His symptoms completely resolved prior to presenting to the ED. In the ED workup was done, vitals notable only for blood pressure elevated at 160/81. Labs notable for WBC 10.4, INR 1.0, creatinine 1.05, troponin negative. Chest xray showed mild bibasilar densitities possibly atelectasis. CT head showed no acute process. He was admitted for further treatment. Discharge Providers Provider Date of admission: 11/04/21 14:08 Discharge Date: 11/05/21 Primary care physician: Tomi Pathak MD Consults: 11/04/21 19:58 Consult to Occupational Therapy Evaluate & Treat Comment: Physician Instructions: Evaluate and treat Consult to Physical Therapy Evaluate & Treat Comment: Physician Instructions: Evaluate and Treat Consult to Speech Therapy Evaluate & Treat Comment: Physician Instructions: Evaluate and treat Discharge provider: Dee Deluca MD Summary Hospital Course Discharge Diagnosis: 1. Probable TIA 2. History of CVA 3. Chronic dizziness 4. Hyperlipidemia Hospital Course: Patient was admitted to the hospital following an episode of confusion, dizziness, difficulty with writing, symptoms lasted for 1 hour. The patient had no recurrent symptoms. No weakness no numbness no tingling no headache no blurred vision. Patient underwent head CT in the emergency department which revealed no acute intracranial abnormalities, there was cerebral volume loss and chronic microvascular non ischemic changes. The patient underwent an MRI of the brain this morning. This showed no acute intracranial abnormalities. It showed cerebral volume loss and chronic microvascular ischemic changes as well. The patient had a cardiac echo to rule out an embolic focus. The results of which are still pending. I informed the patient that I would review the results and if there were any abnormalities would follow up with him regarding that. As this is the patient's 2nd TIA over the past 2 years I have recommended that he follow-up with his primary care provider Dr. Fong for a loop recorder to rule out the possibility paroxysmal atrial fibrillation as a possible etiology. The patient will continue on his previous home medications. He was deemed appropriate for discharge and will follow-up with Dr. Fong next week. Status at Discharge Cognitive/behavioral status at discharge: oriented Functional status at discharge: independent ambulation Overall status at discharge: patient is back to baseline Exam Vital Signs (past 8 hours): - 11/05/21 09:09 Temperature 97.9 F Pulse Rate 59 L Respiratory Rate 18 Blood Pressure 114/56 L Pulse Oximetry 96 Oxygen Delivery Method Room Air Oxygen Flow Rate 0 Narrative Exam Narrative: Pleasant male lying in bed in no obvious distress Resp Other: Lungs clear to auscultation Cardio Other: Regular rate and rhythm normal S1-S2 with a 2/6 systolic ejection murmur GI Other: Abdomen soft nontender nondistended Neuro Other: And IH SS stroke scale 0 Extrem Other: No edema Objective Labs Result Diagrams: 11/05/21 05:10 11/05/21 05:10 Labs: Laboratory Results - last 24 hr 11/04/21 11/04/21 11/04/21 12:25 12:25 12:25 WBC 10.4 RBC 4.74 Hgb 14.8 Hct 43.7 MCV 92.1 MCH 31.3 MCHC 33.9 RDW 13.9 Plt Count 250 Neut % (Auto) 67.4 Lymph % (Auto) 23.2 L [place] % (Auto) 6.3 Eos % (Auto) 2.4 Baso % (Auto) 0.7 Neut # (Auto) 7000 Lymph # (Auto) 2400 [place] # (Auto) 700 Eos # (Auto) 200 Baso # (Auto) 100 PT 11.5 INR 1.0 APTT 31 Sodium 139 Potassium 4.1 Chloride 107 Carbon Dioxide 23 BUN 15 Creatinine 1.05 Estimated GFR > 60.0 BUN/Creatinine Ratio 14.3 Glucose 98 Hemoglobin A1c Calcium 9.6 Total Bilirubin 0.9 AST 30 ALT 33 Alkaline Phosphatase 71 Total Creatine Kinase 86 CK-MB (CK-2) TNP CK-MB (CK-2) Rel Index TNP Troponin I < 0.012 Total Protein 7.3 Albumin 4.5 Globulin 2.8 Albumin/Globulin Ratio 1.6 Triglycerides Cholesterol LDL Cholesterol, Calc HDL Cholesterol SARS-CoV-2 (PCR) 11/04/21 11/05/21 11/05/21 18:10 05:10 05:10 WBC 9.4 RBC 4.60 Hgb 14.3 Hct 41.8 MCV 90.8 MCH 31.1 MCHC 34.3 RDW 13.8 Plt Count 221 Neut % (Auto) 59.6 Lymph % (Auto) 26.2 [place] % (Auto) 8.0 Eos % (Auto) 5.2 H Baso % (Auto) 1.0 Neut # (Auto) 5600 Lymph # (Auto) 2500 [place] # (Auto) 800 Eos # (Auto) 500 H Baso # (Auto) 100 PT INR APTT Sodium 138 Potassium 4.4 Chloride 109 H Carbon Dioxide 24 BUN 19 Creatinine 1.07 Estimated GFR > 60.0 BUN/Creatinine Ratio 17.8 Glucose 91 Hemoglobin A1c Calcium 9.1 Total Bilirubin AST ALT Alkaline Phosphatase Total Creatine Kinase CK-MB (CK-2) CK-MB (CK-2) Rel Index Troponin I Total Protein Albumin Globulin Albumin/Globulin Ratio Triglycerides 135 Cholesterol 115 L LDL Cholesterol, Calc 52 HDL Cholesterol 36 L SARS-CoV-2 (PCR) Negative 11/05/21 05:10 WBC RBC Hgb Hct MCV MCH MCHC RDW Plt Count Neut % (Auto) Lymph % (Auto) [place] % (Auto) Eos % (Auto) Baso % (Auto) Neut # (Auto) Lymph # (Auto) [place] # (Auto) Eos # (Auto) Baso # (Auto) PT INR APTT Sodium Potassium Chloride Carbon Dioxide BUN Creatinine Estimated GFR BUN/Creatinine Ratio Glucose Hemoglobin A1c 5.2 Calcium Total Bilirubin AST ALT Alkaline Phosphatase Total Creatine Kinase CK-MB (CK-2) CK-MB (CK-2) Rel Index Troponin I Total Protein Albumin Globulin Albumin/Globulin Ratio Triglycerides Cholesterol LDL Cholesterol, Calc HDL Cholesterol SARS-CoV-2 (PCR) [facility] Medical History Arthritis Colon polyps (2000) Diverticular disease Hearing loss History of basal cell carcinoma (BCC) History of SCC (squamous cell carcinoma) of skin Hyperlipidemia TIA (transient ischemic attack) Vertigo (2006) Surgical History History of basal cell carcinoma (BCC) excision History of colonoscopy with polypectomy (10/24/13) History of colonoscopy with polypectomy (05/24/07) History of colonoscopy with polypectomy (01/24/04) History of squamous cell carcinoma excision Status post amputation of extremity Status post rotator cuff repair (2005) Family History Mother Diabetes mellitus Hypertension Father Heart failure Heart disease Social History household members: spouse Smoking Status: Never smoker alcohol intake: current substance use type: does not use Discharge Assessment & Plan Assessment and Plan Assessment: 1. TIA 2. Hyperlipidemia 3. Chronic dizziness Plan of Treatment: Follow-up with Dr. Pathak next week for a referrral to outpatient cardiology for an event recorder Discharge Plan Discharge Plan Patient Disposition: Home Discharge orders & Medications Prescriptions: New atorvastatin [Lipitor] 20 mg Tablet 80 mg PO BEDTIME Qty: 30 0RF Continued clopidogrel 75 mg tablet 75 mg PO DAILY 30 Days Qty: 90 3RF aspirin 81 mg tablet,delayed release (DR/EC) 81 mg PO DAILY 0RF meclizine 25 MG tablet 25 mg PO Q6HP PRN (Reason: Vertigo) 0RF Label Comments: patinet states takes every morning. multivitamin Tablet 1 tab PO DAILY 0RF ascorbic acid (vitamin C) [Vitamin C] 500 mg Tablet,Chewable 500 mg PO DAILY 0RF CoQ-10 1 cap PO DAILY 0RF Vitamin B-12 1 tab PO DAILY 0RF Vitamin B3 1 tab PO DAILY 0RF Vitamin D3 1 cap PO DAILY 0RF Discontinued atorvastatin 40 mg tablet 40 mg PO BEDTIME Qty: 90 3RF Follow up/Referrals: Tomi Pathak MD [Primary Care Provider] - Discharge Health Status Multidrug resistant organism: No MDRO Diet/Activity/Treatments Diet: Low-sodium and Low-cholesterol Discharge Data Primary Care Provider: Tomi Pathak Attending Provider: Dee Deluca
--- NOTE | 2021-11-05 10:48 | ST.IPSCREEN ---
Pt was admitted 11/04/21 for dizziness and speech abnormality. All s/sx had resolved prior to getting to ED. Speech/language and swallow screening was conducted in pt's room. Pt denies any continuing symptoms,. Observed no difficulty with intelligibility, expressive language or swallow. No ST indicated at this time. Will discharge order.
--- NOTE | 2021-11-05 11:02 | OT.IP.EVAL ---
Past Medical History (Last Reviewed 11/04/21 @ 20:39 by Kamran Bansal MD) Arthritis Colon polyps (2000) Diverticular disease Hearing loss History of basal cell carcinoma (BCC) History of basal cell carcinoma (BCC) excision History of colonoscopy with polypectomy (10/24/13) History of colonoscopy with polypectomy (05/24/07) History of colonoscopy with polypectomy (01/24/04) History of SCC (squamous cell carcinoma) of skin History of squamous cell carcinoma excision Hyperlipidemia TIA (transient ischemic attack) Vertigo (2006) Surgical History (Last Reviewed 11/04/21 @ 20:39 by Kamran Bansal MD) History of basal cell carcinoma (BCC) excision History of colonoscopy with polypectomy (10/24/13) History of colonoscopy with polypectomy (05/24/07) History of colonoscopy with polypectomy (01/24/04) History of squamous cell carcinoma excision Status post amputation of extremity Status post rotator cuff repair (2005) Occupational Therapy Inpatient Evaluation/Re-Eval M1 PT/OT-IP Prior Functional Status Start: 11/05/21 13:09 Freq: NEEDED Status: Discharge Protocol: Document 11/05/21 11:25 AB (Rec: 11/05/21 13:19 AB [id number]) Medical Review Prior Functional Status Medical History Reviewed Yes Communication able to make needs known Mobility and Gait pt stated that he is independent with all mobilities and ambulation without AD Social History Household Members spouse Living Arrangements House Number of Floors (Floors) Two Floors Number of Stairs To Enter/Railing? 2 platform steps without rails + 1 step with R rail to enter the house pt stays on main level of the house Home Environment High Toilet,Walk in Shower, Built-In Shower Seat Home Equipment Grab Bars Near Toilet,Grab Bars In Shower M2 OT-IP Current Condition Start: 11/05/21 14:16 Freq: Status: Discharge Protocol: Document 11/05/21 10:24 [facility] (Rec: 11/05/21 14:36 [facility] [id number]) Occupational Therapy Current Condition Current Condition Evaluation Date 11/05/21 Treatment Diagnosis TIA Diagnosis Onset Date 11/04/21 M3 OT- IP Subjective and Pain Start: 11/05/21 14:16 Freq: Status: Discharge Protocol: Document 11/05/21 10:24 [facility] (Rec: 11/05/21 14:36 [facility] [id number]) OT- Subjective Occupational Therapy Visit Type Type Initial Evaluation Visit Start Time 10:24 Visit Stop Time 11:02 Total Visit Minutes 38 Occupational Therapy Visit Comments Patient Comments Pt agreed to do OT eval. Patient/Caregiver Goals TO go home. OT Pain Assessment Pain When Pain Assessed At Rest Pain Present Pain Present Denied Pain M4 OT- IP ADL's Start: 11/05/21 14:16 Freq: Status: Discharge Protocol: Document 11/05/21 10:24 [facility] (Rec: 11/05/21 14:36 [facility] [id number]) OT ADL-Grooming General Evaluation Grooming Ability Standby Assistance Areas Needing Assistance Retrieving/Set-up of Grooming Items Comments OT Grooming Comments Assist to open packaging for toothbrush. OT ADL-Oral Care General Eval Oral Care Ability Independent OT ADL-Dressing General Eval Upper Body Dressing Ability Independent Lower Body Dressing Ability Standby Assistance Comments OT Dressing Comments Assist to untie knots in his shoes and sba while standing for his clothing needs. OT ADL-Toileting Comments OT Toileting Comments Pt not having to go. Pt states has been using the toilet on his own in the room. OT ADL-Bathing Comments OT Bathing Comments Not performed. M5 OT- IP IADL's Start: 11/05/21 14:16 Freq: Status: Discharge Protocol: Document 11/05/21 10:24 [facility] (Rec: 11/05/21 14:36 [facility] [id number]) OT-Instrumental Activities of Daily Living Home Safety Awareness Ability to Problem Solve Emergency Able to Problem Solve Situations Medication Management Medication Management Comments Pt states uses pill organizer at home. Money Management Money Management Comments Pt state both he and his do the bills. M6 OT- IP Functional Cognition Start: 11/05/21 14:16 Freq: Status: Discharge Protocol: Document 11/05/21 10:24 [facility] (Rec: 11/05/21 14:36 [facility] [id number]) Cognitive Factors Limiting Selfcare Function Cognitive Ability Level of Alertness Alert Patient Orientation Name,Age,Birthday,Month,Date, Year,Day of Week,Place, Situation Attention Span Ability Capable of Focused Attention, Capable of Sustained Attention Ability to Follow Commands Able to Follow One Step Commands Memory Description Short Term Impaired Problem Solving Ability Needs Assist to Identify Solutions Executive Function Ability Unable to Filter Distractions, Unable to Remember Details Cognitive Tests SLUMS Pt scored 24/30 which implies mild cognitive deficits. Pt able to recall 2/5 words after time passed, unable to states 4 digit number backwards, not able to draw the numbers of the clock or hour hands correctly and also elizabeth them in the upper right quadrant of the eek, and pt able to answer 2/4 questions right after paragraph read. Cognitive Comments Cognitive Assessment Comments Pt is a little hard of hearing , therefore making if hard for him to follow directions. Pt is a bit impulsive as well. At this time it would be beneficial for his to proved supervision for his needs due to his decreased STM, visual deficits on the left ,and that he is impulsive. 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 M7 OT- IP Mobility and Balance Start: 11/05/21 14:16 Freq: Status: Discharge Protocol: Document 11/05/21 10:24 [facility] (Rec: 11/05/21 14:36 [facility] [id number]) OT- Bed Mobility Assessment Supine to Sit Supine to Sit Assist Independent Sit to Supine Sit to Supine Assist Independent OT-Transfer Assessment Sit to and From Stand Sit to and from Stand Independent Transfers Transfer Ability Standby Assistance Technique Transfer Destination Bed,Chair Devices Transfer Assistive Devices Gait Belt Comments Mobility Comments Distant SBA mainly for cues not to bump into objects on his left side due to his decreased vision. OT- Balance Assessment Sitting Balance and Reactions Static Sitting Balance Ability Normal Dynamic Sitting Balance Ability Good Standing Balance and Reactions Static Standing Balance Ability Good M8 OT- IP Objective Assessments Start: 11/05/21 14:16 Freq: Status: Discharge Protocol: Document 11/05/21 10:24 [facility] (Rec: 11/05/21 14:36 [facility] [id number]) OT Gross Range of Motion Upper Extremity Range of Motion Assessment Within Functional Limits OT- Coordination Assessment Comments Coordination Comments Decreased for FMS but pt also has arthritis in his hands. OT Sensation Assessment Comments Summary Comments Pt states left side is not as sensitive during light touch versus right side for UE. M9 OT- IP Assessment and Plan Start: 11/05/21 14:16 Freq: Status: Discharge Protocol: Document 11/05/21 10:24 [facility] (Rec: 11/05/21 14:36 [facility] [id number]) OT Summary Assessment and Plan Potential Rehabilitation Potential Good Analytic Complexity at Evaluation Moderate Summary OT Impairments Coordination,Functional Cognition,Functional Mobility, Self-Feeding,Grooming,Dressing ,Toileting,Bathing,Toilet Transfers,Shower Transfers, Activity Tolerance Progress Towards Goals Progressing Toward Goals Assessment Summary Pt here due to TIA and having difficulty with word finding and STM, however per pt was having 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 Pt alsoo appears to have left hemianopsia and able to read the newspaper appropriately with his glasses on, however when trying to find items on the newspaper, pt needing increased time to find them. In addition pt bumping into items on the left side. Pt would benefit from seeing an clinical specialist vascular to help with his vision. Pt would also benefit from outpt OT to work on his vision and FMS and STM compensation skills. Goals Grooming Goal Independent Dressing Goal Independent Toileting Goal Independent Bathing Goal Independent Toilet Transfer Goal Independent Shower Transfer Goal Independent Days to Meet Goals 5 Frequency of Treatment Frequency Of Treatment Once a Day Treatment Plan OT Treatment Plan ADL Training,Functional Cognition Training,Functional Mobility,Vision Retraining, Patient/Family Education, Discharge Planning Other Treatment Recommendations and Next Review vision strategies with Treatment Focus pt. Discharge Recommendations OT Discharge Recommendations Home with 24/ Assist Available,Outpatient PT Transportation Needs at Discharge Private Vehicle
--- NOTE | 2021-11-05 11:25 | PT.IIE ---
Surgical History (Last Reviewed 11/04/21 @ 20:39 by Kamran Bansal MD) Status post amputation of extremity Status post rotator cuff repair (2005) Medical History (Last Reviewed 11/04/21 @ 20:39 by Kamran Bansal MD) Arthritis Colon polyps (2000) Diverticular disease Hearing loss History of basal cell carcinoma (BCC) History of SCC (squamous cell carcinoma) of skin Hyperlipidemia TIA (transient ischemic attack) Vertigo (2006) Physical Therapy Inpatient Evaluation/Re-Eval M1 PT/OT-IP Prior Functional Status Start: 11/05/21 13:09 Freq: NEEDED Status: Active Protocol: Document 11/05/21 11:25 AB (Rec: 11/05/21 13:19 AB [id number]) Medical Review Prior Functional Status Medical History Reviewed Yes Communication able to make needs known Mobility and Gait pt stated that he is independent with all mobilities and ambulation without AD Social History Household Members spouse Living Arrangements House Number of Floors (Floors) Two Floors Number of Stairs To Enter/Railing? 2 platform steps without rails + 1 step with R rail to enter the house pt stays on main level of the house Home Environment High Toilet,Walk in Shower, Built-In Shower Seat Home Equipment Grab Bars Near Toilet,Grab Bars In Shower M2 PT-IP Current Condition Start: 11/05/21 13:09 Freq: NEEDED Status: Active Protocol: Document 11/05/21 11:25 AB (Rec: 11/05/21 13:19 AB [id number]) Physical Therapy Current Condition Current Condition Evaluation Date 11/05/21 Treatment Diagnosis TIA; difficulty in walking Onset Date 11/04/21 M3 PT-IP Subjective Start: 11/05/21 13:09 Freq: NEEDED Status: Active Protocol: Document 11/05/21 11:25 AB (Rec: 11/05/21 13:19 AB [id number]) Subjective Physical Therapy Visit Type Type Initial Evaluation Visit Start Time 11:25 Visit Stop Time 11:40 Total Visit Minutes 15 Number of WHEEL BRAIDER Visits 0 Physical Therapy Visit Comments Patient Comments agreeable to do PT M4 PT-IP Mobility and Gait Start: 11/05/21 13:09 Freq: NEEDED Status: Active Protocol: Document 11/05/21 11:25 AB (Rec: 11/05/21 13:19 AB [id number]) PT-Bed Mobility Assessment Supine to Sit Supine to Sit Independent Sit to Supine Sit to Supine Independent PT-Transfer Assessment Sit to and From Stand Sit to and from Stand Standby Assistance Equipment Transfer Assistive Device None,Gait Belt Orthotic/Prosthetic Devices or Brace: No Comments Mobility Comments pt in room and moving around by himself without AD. pt is very impulsive but without LOB . pt stated that he has CVA ~ 2 years ago but able to be independent afterwards. completed bed mobility independent. ambulated without AD SBA to occasional CGA for safety 250 ft. pt presents with antalgic gait with increase lateral trunk lean to the R. completed up/ down steps initially using 1 rail SBA and repeated without rails SBA to CGA. pt ambulated back to his room SBA and sat back on EOB. call light and table within reach . Gait Assessment Gait Gait Assistance Required: Standby Assistance,Contact Guard Assist Distance (Feet) 250 Able to Maintain Weight Bearing Status Yes During Gait Assistive Devices Assistive Device None,Gait Belt Orthotic/Prosthetic Devices or Brace: No Gait Deviations General Gait Pattern Antalgic,Lateral Trunk Lean Factors Limiting Gait Function Factors Limiting Gait Function Decreased Activity Tolerance, Decreased Strength,Poor Balance,Poor Safety Awareness Stair Climbing Assessment Evaluation Level of Assist On Stairs Standby Assistance,Contact Guard Assistance Devices Stair Climbing Assistive Devices None,Right Railing Technique/Endurance Stair Climbing Direction Ascend and Descend Stair Climbing Technique Step to Step Number of Steps Climbed 3 Query Text: Stair Climbing Set # Repetitions (reps) 2 PT-Balance Assessment Sitting Balance and Reactions Static Sitting Balance Ability Good Dynamic Sitting Balance Ability Good Standing Balance and Reactions Static Standing Balance Ability Good Dynamic Standing Balance Ability Fair Device Used without AD M5 PT-IP Objective Assessments Start: 11/05/21 13:09 Freq: NEEDED Status: Active Protocol: Document 11/05/21 11:25 AB (Rec: 11/05/21 13:19 AB [id number]) Orientation Orientation/Cognition Level of Alertness Alert Orientation Name,Place,Situation Language Function Ability No Deficits Noted Safety Awareness Decreased Safety Awareness Gross Range of Motion Lower Extremity ROM Assessment Within Functional Limits Strength Comments Strength Comments RLE 4/5 LLE: 4-/5 Sensation Assessment Sensation Gross Sensation WNL Muscle Tone Muscle Tone WNL Yes M6 PT-IP Treatment Start: 11/05/21 13:09 Freq: NEEDED Status: Active Protocol: Document 11/05/21 11:25 AB (Rec: 11/05/21 13:19 AB [id number]) Physical Therapy Treatment Education Education Provided Safety M7 PT-IP Assessment and Plan Start: 11/05/21 13:09 Freq: NEEDED Status: Active Protocol: Document 11/05/21 11:25 AB (Rec: 11/05/21 13:19 AB [id number]) PT Summary Assessment and Plan Potential Rehabilitation Potential Fair Status of Condition at Evaluation Stable Summary Impairments Pain,ROM,Strength,Balance, Coordination,Sensation,Tone, Cognition,Bed Mobility, Transfers,Gait,Activity Tolerance Assessment Summary Pt requiring SBA to CGA with mobility without AD and can be impulsive. pt will have his spouse to assist him at home. pt may go home when medically stable. Goals Transfer Goal Independent Gait Goal Independent Gait Distance 300 Other Goals up/down 3 steps without rail mod I Days to Meet Goals 3 Frequency of Treatment Frequency Of Treatment Once a Day Treatment Plan Physical Therapy Treatment Plan Bed Mobility Training,Transfer Training,Gait Training, Therapeutic Exercise,Balance Retraining,Discharge Planning, Neuromuscular Re-ed, Coordination Retraining Recommendations To Nursing Amount of Assist Needed Standby Assistance Discharge Recommendations PT Discharge Recommendations Home with Assistance Transportation Needs at Discharge Private Vehicle
--- NOTE | 2021-11-05 14:56 | OT.IPNOTE ---
Pt scored 19/30 on the SLUMS not 24/30 which was documented prior. Pt's score implies bordeline dementia.
== END 2021-11-05 14:25 | disposition home or self-care (01) ==
LOC: ED 14:08 → AC 14:09
PROVIDERS: Internal Medicine; Admitting Provider Internal Medicine; Emergency Provider Emergency Medicine; PCP Student in an Organized Health Care Education/Training Program; Referring Provider Emergency Medicine; Visit Provider Internal Medicine
DX: R29.818 Other symptoms and signs involving the nervous system (principal); R41.0 Disorientation, unspecified; R42 Dizziness and giddiness; R29.700 NIHSS score 0; E78.5 Hyperlipidemia, unspecified; Z86.73 Personal history of transient ischemic attack (TIA), and cerebral infarction without residual deficits; Z20.822 Contact with and (suspected) exposure to COVID-19
CPT/HCPCS: 36415; 70450; 70551; 71045; 80048; 80053; 80061; 82550; 83036; 84484; 85025; 85610; 85730; 87635; 93005; 93010; 93306; 96372; 97161; 97166; 97530; 99285; C9803; G0378; J1650

== ENCOUNTER → 2021-12-08 13:49 | Outpatient (CLI) | payer MEDICARE, OTHER, SELFPAY ==
[2021-11-04 18:26] VITALS: BMI 25.8
--- NOTE | 2021-12-23 07:35 | PM.CARDMON.1 ---
Veneer Sample Maker Report Referral & Results Date Patient Seen: 12/08/21 Requesting provider: Tomi Pathak Indication: TIA Duration of monitoring (days): 7 Diary information: There were 2 patient triggered events and 2 patient diary entries All for these events were associated variably with (within 45 seconds) sinus rhythm and PACs Data: Minimum heart rate identified was 40 beats per minute at 00:21 on 12/09/2021 Maximum sinus heart rate was 119 beats per minute at 03:48 on 12/12/2021 Maximum overall heart rate was 169 beats per minute at 12:32 on 12/13/2021 during a run of SVT Approximately 2.2% of identified beats were supraventricular ectopic in origin which would classify them as occasional Approximately 1.1% of identified beats were ventricular ectopic in origin which would classify them as occasional There was 1 run of nonsustained monomorphic ventricular tachycardia that was 6 beats in duration There were 36 runs of SVT with the fastest being the 9 beat run noted above with the longest lasting 18 beats Impression: 7 day power crane operator demonstrating a single run of nonsustained ventricular tachycardia as well as very rare very brief runs of SVT In addition occasional PACs and PVCs were identified Clinical correlation suggested
== END ==
PROVIDERS: PCP Student in an Organized Health Care Education/Training Program; Referring Provider Student in an Organized Health Care Education/Training Program; Visit Provider Student in an Organized Health Care Education/Training Program
DX: G45.9 Transient cerebral ischemic attack, unspecified (principal); I48.91 Unspecified atrial fibrillation
CPT/HCPCS: 93242; 93244

== ENCOUNTER → 2022-04-21 14:02 | Outpatient (CLI) | payer MEDICARE, OTHER, SELFPAY ==
[2021-11-04 18:26] VITALS: BMI 25.8
== END ==
PROVIDERS: PCP Student in an Organized Health Care Education/Training Program; Referring Provider Ophthalmology; Visit Provider Ophthalmology
DX: B02.39 Other herpes zoster eye disease (principal)
CPT/HCPCS: 87070; 87077; 87205; 87252

== ENCOUNTER 2022-04-22 09:38 | Emergency (ER) | payer MEDICARE, OTHER, SELFPAY ==
[2021-11-04 18:26] VITALS: BMI 25.8
[2022-04-22] VITALS (11 sets, daily range): BP systolic 110–136; BP diastolic 65–78; PULSE 62–87; RESP 17–18; TEMP 36.9; O2SAT 91–96; BMI 25.0
--- NOTE | 2022-04-22 10:19 | DI.RAD.S_ITS ---
PROCEDURE: XR CHEST 1V INDICATIONS: altered mental status TECHNIQUE: One view of the chest was acquired. COMPARISON: [facility], CR, XR CHEST 1V, 11/04/2021, 12:19. FINDINGS: Surgical changes and devices: None. Lungs and pleura: Lungs are clear. No pleural effusions or pneumothorax. Mediastinum: Mediastinal contours appear normal. Heart size is normal. Bones and chest wall: No suspicious bony lesions. Overlying soft tissues appear unremarkable. IMPRESSION: No acute cardiopulmonary pathology. Dictated by: Matt Rangel M.D. on 04/22/2022 at 11:30 Approved by: Matt Rangel M.D. on 04/22/2022 at 11:30
[2022-04-22 10:38] LABS: Add Manual Diff / Slide Review NO; Basophils Absolute Auto 0 /uL (0-100); Basophils Percent Auto 0.5 % (0-2); Eosinophils Absolute Auto 0 /uL (0-450); Eosinophils Percent Auto 0.5 % (2-4); Hematocrit 41.9 % (41-53); Hemoglobin 14.4 g/dL (13.5-17.5); Lymphocytes Absolute Auto 1700 /uL (1100-4500); Lymphocytes Percent Auto 20.7 % (25-40); Mean Corpuscular HGB Conc 34.4 % (30-36); Mean Corpuscular Hemoglobin 30.9 PG (26-34); Mean Corpuscular Volume 89.8 fL (80-100); Monocytes Absolute Auto 1100 /uL (0-900); Monocytes Percent Auto 13.6 % (3-14); Neutrophils Absolute Auto 5200 /uL (1500-7000); Neutrophils Percent Auto 64.7 % (50-75); Platelet Count 187 X10^3/uL (150-400); Red Blood Cell Count 4.66 X10^6/uL (4.5-5.9)
[2022-04-22 10:49] LABS: Alanine Aminotransferase 26 IU/L (<50); Albumin 4.1 g/dL (3.5-5.0); Albumin Globulin Ratio 1.4 (1.0-2.8); Alkaline Phosphatase 75 U/L (38-126); Aspartate Aminotransferase 29 IU/L (17-59); BUN Creatinine Ratio 16.8 (6-22); Bilirubin Total 0.9 mg/dL (0.2-1.3); Blood Urea Nitrogen 19 mg/dL (9-20); Calcium 8.7 mg/dL (8.4-10.2); Carbon Dioxide 22 mmol/L (22-32); Chloride 104 mmol/L (98-107); Estimated Glomerular Filt Rate > 60 mL/min (>60); Glucose 138 mg/dL (80-110); HEMOLYSIS < 15 (0-50); Potassium 3.7 mmol/L (3.4-5.1); Sodium 136 mmol/L (137-145); Total Protein 7.1 g/dL (6.3-8.2)
--- NOTE | 2022-04-22 12:00 | ED_ITS ---
HPI - Neuro Symptoms/Deficit General Chief Complaint: Neuro Symptoms/Deficit Stated Complaint: R/O encephalitis- has shingles in eye-Dr pathak ref Time Seen by Provider: 04/22/22 12:00 Source: patient Mode of arrival: Ambulatory Limitations: no limitations History of Present Illness HPI Narrative: This is a 81-year-old male who comes emergency department with known shingles with involvement of the eye. Patient symptoms started Wednesday with some irritation, rash showed up the next day with swelling and ocular involvement. Patient was seen at the walk-in clinic and started on topical mupirocin. Patient's Ophthalmology yesterday and was started on acyclovir, as well as antibiotic eyedrops which appear very appropriate treatment. Patient has known dementia he has had some very slow decline over time has occasionally had episodes of behavioral disturbances. The last 2 nights patient has had some behavioral disturbances states he gets better during the daytime it is worse overnight. She states it lasted for several hours of taking at his bed. He denies any pain. states he seems like he has not been in discomfort. He has been tolerating the medications they started them yesterday. Patient is on Plavix, atorvastatin and follows with Dr. Pathak. They spoke with the on-call physician last night who contacted morning states that she come for evaluation. On Anticoagulants: Yes (plavix) Related Data Home Medications Medication Instructions Recorded Confirmed CoQ-10 1 cap PO DAILY 01/02/20 04/20/22 Vitamin B-12 1 tab PO DAILY 01/02/20 04/20/22 Vitamin B3 1 tab PO DAILY 01/02/20 04/20/22 Vitamin D3 1 cap PO DAILY 01/02/20 04/20/22 ascorbic acid (vitamin C) 500 mg 500 mg PO DAILY 01/02/20 04/20/22 chewable tablet (Vitamin C) meclizine 25 mg tablet 25 mg PO Q6HP PRN 01/02/20 04/20/22 multivitamin 1 tab PO DAILY 01/02/20 04/20/22 aspirin 81 mg tablet,delayed 81 mg PO DAILY 01/11/20 04/20/22 release Previous Rx's Medication Instructions Recorded atorvastatin 40 mg tablet 40 mg PO DAILY #90 tab 12/09/21 clopidogrel 75 mg tablet 75 mg PO DAILY #90 tab 12/17/21 mupirocin 2 % topical ointment 1 applic TOPICAL BID-TID 7 Days 04/20/22 #22 g polymyxin B sulfate 10,000 1 drp EYE-LEFT QID 7 Days #10 ml 04/20/22 unit-trimethoprim 1 mg/mL eye drops (Polytrim) Allergies Allergy/AdvReac Type Severity Reaction Status Date / Time No Known Drug Allergies Allergy Verified 04/22/22 10:04 Review of Systems Review of Systems ROS Unobtainable: All systems reviewed & are unremarkable except as noted in HPI and below Hematologic/Lymphatic On Anticoagulants: Yes (plavix) Patient History Medical History Arthritis Colon polyps (2000) Diverticular disease Hearing loss History of basal cell carcinoma (BCC) History of SCC (squamous cell carcinoma) of skin Hyperlipidemia TIA (transient ischemic attack) Vertigo (2006) Surgical History History of basal cell carcinoma (BCC) excision History of colonoscopy with polypectomy (10/24/13) History of colonoscopy with polypectomy (05/24/07) History of colonoscopy with polypectomy (01/24/04) History of squamous cell carcinoma excision Status post amputation of extremity Status post rotator cuff repair (2005) Family History Mother Diabetes mellitus Hypertension Father Heart failure Heart disease Social History household members: spouse Smoking Status: Never smoker alcohol intake: current substance use type: does not use Smoking Status: Never smoker alcohol intake frequency: holidays/special occasions only Substance Use Type: does not use Exam Narrative Exam Narrative: GEN: Elderly male, alert and oriented, patient cooperative and appropriate in the room,patient appears to be in mild distress. HEENT: Atraumatic, pupils are equal round reactive to light, extraocular movements are intact, nares are clear, no facial droop. Patient has erythematous rash with scabbed over blisters rating from his scalp on the left side toward his eye. Has swelling of the right upper and lower eyelid with some periorbital erythema. He is nontender, no photophobia HEART: Regular rate and rhythm without murmur, clicks, rubs. LUNGS:Lungs clear to auscultation, no wheezes, rales, crackles, chest moves symmetrically ABD:bowel sounds normal, soft, non-tender, no guarding, rebound, rigidity, no masses noted, no hepatosplenomegaly :No CVA tenderness MSCL: Non-tender, no muscle atrophy, muscles strength 5/5 upper and lower extremities, full range of motion, GCS 14, baseline per . NEURO:CN 2-12 intact, sensation normal, normal speech, no dysarthria. SKIN: See above. Initial Vital Signs Initial Vital Signs: Vital Signs Temperature 98.4 F 04/22/22 09:58 Pulse Rate 76 04/22/22 09:58 Respiratory Rate 17 04/22/22 09:58 Blood Pressure 120/73 04/22/22 09:58 Pulse Oximetry 96 04/22/22 09:58 Scores GCS Semmes coma scale eye opening: Spontaneous Semmes coma scale verbal response: Confused Carleen coma scale motor response: Obey commands Carleen coma scale total score: 14 Course Orders Ordered: ED Orders 04/22/22 10:19 XR chest 1V Stat EKG-12 Lead Stat 04/22/22 10:31 Complete Blood Count AUTO DIFF Stat Comprehensive Metabolic Panel Stat 04/22/22 13:40 Urine Culture Stat Urine Drug Screen, Rapid Stat Urine Microscopic Stat Discontinued Medications Sodium Chloride (Normal Saline 0.9%) 1,000 mls @ 1,000 mls/hr IV BOLUS ONE Stop: 04/22/22 13:26 Reevaluation(s) Reevaluation #1: Reviewed patient's urine sample, lab findings with patient and . Discussed findings today, plan to continue medications. Return precautions and discussed with they can come back at any point if they are uncomfortable. We reviewed that he is on acyclovir although my suspicion for encephalitis is low it has not completely ruled out. We had discussed the ways should be done with MRI and lumbar puncture and defers at this time understanding risks versus benefits. Time: 13:59 Vital Signs Vital signs: Vital Signs - 8 hr 04/22/22 11:40 04/22/22 11:41 04/22/22 12:00 Pulse Rate 82 86 74 Respiratory Rate Blood Pressure 135/65 113/65 Pulse Oximetry 94 95 95 04/22/22 12:12 04/22/22 12:30 04/22/22 13:00 Pulse Rate 80 84 87 Respiratory Rate 18 Blood Pressure 113/65 113/68 112/67 Pulse Oximetry 96 95 91 04/22/22 13:30 04/22/22 13:31 04/22/22 14:19 Pulse Rate 85 85 62 Respiratory Rate Blood Pressure 136/78 110/71 Pulse Oximetry 95 94 94 MDM - Neuro Symptoms/Deficit Lab Data Result diagrams: 04/22/22 10:31 04/22/22 10:31 Labs: Lab Results 04/22/22 04/22/22 04/22/22 Range/Units 10:31 10:31 13:40 WBC 8.0 (4.5-11.0) X10^3/uL RBC 4.66 (4.5-5.9) X10^6/uL Hgb 14.4 (13.5-17.5) g/dL Hct 41.9 (41-53) % MCV 89.8 (80-100) fL MCH 30.9 (26-34) PG MCHC 34.4 (30-36) % RDW 14.0 (11.6-14.8) % Plt Count 187 (150-400) X10^3/uL Neut % (Auto) 64.7 (50-75) % Lymph % (Auto) 20.7 L (25-40) % [place] % (Auto) 13.6 (3-14) % Eos % (Auto) 0.5 L (2-4) % Baso % (Auto) 0.5 (0-2) % Neut # (Auto) 5200 (7335-5431) /uL Lymph # (Auto) 1700 (9365-0134) /uL [place] # (Auto) 1100 H (0-900) /uL Eos # (Auto) 0 (0-450) /uL Baso # (Auto) 0 (0-100) /uL Sodium 136 L (137-145) mmol/L Potassium 3.7 (3.4-5.1) mmol/L Chloride 104 (98-107) mmol/L Carbon Dioxide 22 (22-32) mmol/L BUN 19 (9-20) mg/dL Creatinine 1.13 (0.66-1.25) mg/dL Estimated GFR > 60 (>60) mL/min BUN/Creatinine Ratio 16.8 (6-22) Glucose 138 H (80-110) mg/dL Calcium 8.7 (8.4-10.2) mg/dL Total Bilirubin 0.9 (0.2-1.3) mg/dL AST 29 (17-59) IU/L ALT 26 (<50) IU/L Alkaline Phosphatase 75 (38-126) U/L Total Protein 7.1 (6.3-8.2) g/dL Albumin 4.1 (3.5-5.0) g/dL Globulin 3.0 (1.7-4.1) g/dL Albumin/Globulin Ratio 1.4 (1.0-2.8) Urine RBC (0-5/HPF) Urine WBC (0-5/HPF) Urine Bacteria (None) Ur Culture Indicated? U Opiates 300ng/mL cut Negative (Negative) Ur Oxycodone Screen Negative (Negative) Urine Methadone Screen Negative (Negative) Ur Barbiturates Screen Negative (Negative) U Tricyclic Antidepress Negative (Negative) Ur Phencyclidine Scrn Negative (Negative) Ur Amphetamines Screen Negative (Negative) U Methamphetamines Scrn Negative (Negative) Ur MDMA Scrn (Ecstasy) Negative (Negative) U Benzodiazepines Scrn Negative (Negative) Urine Cocaine Screen Negative (Negative) U Marijuana (THC) Screen Negative (Negative) 04/22/22 Range/Units 13:40 WBC (4.5-11.0) X10^3/uL RBC (4.5-5.9) X10^6/uL Hgb (13.5-17.5) g/dL Hct (41-53) % MCV (80-100) fL MCH (26-34) PG MCHC (30-36) % RDW (11.6-14.8) % Plt Count (150-400) X10^3/uL Neut % (Auto) (50-75) % Lymph % (Auto) (25-40) % [place] % (Auto) (3-14) % Eos % (Auto) (2-4) % Baso % (Auto) (0-2) % Neut # (Auto) (4693-5082) /uL Lymph # (Auto) (8460-3843) /uL [place] # (Auto) (0-900) /uL Eos # (Auto) (0-450) /uL Baso # (Auto) (0-100) /uL Sodium (137-145) mmol/L Potassium (3.4-5.1) mmol/L Chloride (98-107) mmol/L Carbon Dioxide (22-32) mmol/L BUN (9-20) mg/dL Creatinine (0.66-1.25) mg/dL Estimated GFR (>60) mL/min BUN/Creatinine Ratio (6-22) Glucose (80-110) mg/dL Calcium (8.4-10.2) mg/dL Total Bilirubin (0.2-1.3) mg/dL AST (17-59) IU/L ALT (<50) IU/L Alkaline Phosphatase (38-126) U/L Total Protein (6.3-8.2) g/dL Albumin (3.5-5.0) g/dL Globulin (1.7-4.1) g/dL Albumin/Globulin Ratio (1.0-2.8) Urine RBC None seen (0-5/HPF) Urine WBC 1-5/hpf (0-5/HPF) Urine Bacteria None seen (None) Ur Culture Indicated? Specimen cultured U Opiates 300ng/mL cut (Negative) Ur Oxycodone Screen (Negative) Urine Methadone Screen (Negative) Ur Barbiturates Screen (Negative) U Tricyclic Antidepress (Negative) Ur Phencyclidine Scrn (Negative) Ur Amphetamines Screen (Negative) U Methamphetamines Scrn (Negative) Ur MDMA Scrn (Ecstasy) (Negative) U Benzodiazepines Scrn (Negative) Urine Cocaine Screen (Negative) U Marijuana (THC) Screen (Negative) Point of Care Testing Glucose POC 124 Urine Dip Bedside Urine Glucose Negative Bedside Urine Bilirubin - Negative Bedside Urine Ketone - Negative Urine Specific [place] 1.020 Bedside Urine Occult Blood - Negative Bedside Urine pH 7.0 Bedside Urine Protein - Negative Bedside Urine Urobilinogen 0.2 Bedside Urine Nitrite - Negative Bedside Urine Leukocytes - Negative Esterase Imaging Data Chest x-ray: Radiologist's Impression: [address] [address] XRay Report Signed Patient: Juno Emmanuel MR#: [id number] : 1940 Acct:[id number] Age/Sex: 81 / M Date of Service: 04/22/22 Loc: ED Accession Number: [id number] ?? Procedure: XR chest 1V Ordering Provider: Kaya Kwong D.O. PROCEDURE:? XR CHEST 1V ? INDICATIONS:? altered mental status ? TECHNIQUE:? One view of the chest was acquired.? ? COMPARISON:? [facility], CR, XR CHEST 1V, 11/04/2021, 12:19. ? FINDINGS:? ? Surgical changes and devices:? None.? ? Lungs and pleura:? Lungs are clear.? No pleural effusions or pneumothorax.? ? Mediastinum:? Mediastinal contours appear normal.? Heart size is normal.? ? Bones and chest wall:? No suspicious bony lesions.? Overlying soft tissues appear unremarkable.? ? IMPRESSION:? No acute cardiopulmonary pathology. ? ? Dictated by: Matt Rangel M.D. on 04/22/2022 at 11:30 ? ? Approved by: Matt Rangel M.D. on 04/22/2022 at 11:30?? MDM Narrative Medical decision making narrative: Discussed with patient and family, patient at this time mental status is at his normal baseline. His describes sundowning type behavior. We discussed there is the potential for encephalitis workup would include MRI, lumbar puncture which his is reluctant to pursue. On my physical exam and evaluating him here in the department my suspicion for this is actually lower and I suspect that he is having some disturbances secondary to dementia and his current medical issue with the shingles. He is being appropriately treated for his shingles Osler's with eye involvement and is following with Ophthalmology. His showed me all of the medications he received additional doses here in the department. After discussion and shared decision-making decision is to continue to watch the patient closely and return if rapidly worsening symptoms. Urine was also obtained to evaluate for UTI, labs otherwise do not show major abnormalities but discussed with this does not rule out a systemic infection. We did discuss that typically and encephalitis would be treated IV acyclovir and not oral antivirals. Discharge Plan Departure Patient Disposition: Home Clinical Impression: Herpes zoster conjunctivitis of left eye Instructions: DI for Shingles Activity Restrictions/Additional Instructions: Follow-up with your physician this week for recheck. As discussed we have not completely ruled out encephalitis, my suspicion for this is low but it is a possibility if Juno symptoms are rapidly worsening pl ease return. Please continue the acyclovir and medications as prescribed. You may give Tylenol up to a 1000 mg every 6 hours as needed for pain. Please return for fevers, worsening symptoms, headache, eye pain or new facial pain, persistent vomiting, chest pain or shortness of breath, difficulty with movement, worsening changes to behavior or mentation or other new or concerning symptoms. Prescriptions: No Action polymyxin B sulf-trimethoprim [Polytrim] 10,000 unit- 1 mg/mL drops 1 drp EYE-LEFT QID 7 Days Qty: 10 0RF mupirocin 2 % ointment 1 applic topical BID-TID 7 Days Qty: 22 0RF atorvastatin 40 mg tablet 40 mg PO DAILY Qty: 90 0RF Rx Instructions: pt will need to be seen before next renewal 12/09/21 aspirin 81 mg tablet,delayed release (DR/EC) 81 mg PO DAILY 0RF clopidogrel 75 mg tablet 75 mg PO DAILY Qty: 90 3RF meclizine 25 MG tablet 25 mg PO Q6HP PRN (Reason: Vertigo) 0RF Label Comments: patinet states takes every morning. multivitamin Tablet 1 tab PO DAILY 0RF ascorbic acid (vitamin C) [Vitamin C] 500 mg Tablet,Chewable 500 mg PO DAILY 0RF CoQ-10 1 cap PO DAILY 0RF Vitamin B-12 1 tab PO DAILY 0RF Vitamin B3 1 tab PO DAILY 0RF Vitamin D3 1 cap PO DAILY 0RF Referrals: Tomi Pathak MD [Primary Care Provider] -
[2022-04-22 14:14] LABS: Bacteria Urine None Seen; Culture Indicated Urine Specimen Cultured; RBC Urine None Seen (0-5/HPF); WBC Urine 1-5/HPF (0-5/HPF)
[2022-04-22 14:17] LABS: UR Morphine/Opiate cutoff 300 Negative (Negative); Ur Creatinine Normal (Normal); Ur Specific Gravity Normal (Normal); Urine Amphetamines Negative (Negative); Urine Barbiturates Negative (Negative); Urine Benzodiazepines Negative (Negative); Urine Cocaine Negative (Negative); Urine MDMA Negative (Negative); Urine Methadone Negative (Negative); Urine Methamphetamines Negative (Negative); Urine Oxycodone Negative (Negative); Urine Phencyclidine Negative (Negative); Urine Tetrahydrocannabinol Negative (Negative); Urine Tricyclic Antidepressant Negative (Negative); Urine pH Normal (Normal)
== END 2022-04-22 14:20 | disposition home or self-care (01) ==
PROVIDERS: Emergency Provider Emergency Medicine; PCP Student in an Organized Health Care Education/Training Program; Referring Provider Student in an Organized Health Care Education/Training Program
DX: B02.31 Zoster conjunctivitis (principal); R41.82 Altered mental status, unspecified; Z79.01 Long term (current) use of anticoagulants
CPT/HCPCS: 36415; 71045; 80053; 80305; 81003; 81015; 82962; 85025; 87086; 93005; 99284

== ENCOUNTER → 2023-11-19 07:06 | Outpatient (CLI) | payer MEDICARE, OTHER, SELFPAY ==
[2021-11-04 18:26] VITALS: BMI 25.8
[2023-11-19 08:41] LABS: Hematocrit 42.9 % (41-53); Hemoglobin 14.4 g/dL (13.5-17.5); Mean Corpuscular HGB Conc 33.5 % (30-36); Mean Corpuscular Hemoglobin 30.8 PG (26-34); Mean Corpuscular Volume 91.8 fL (80-100); Platelet Count 243 X10^3/uL (150-400); Red Blood Cell Count 4.68 X10^6/uL (4.5-5.9); Red Cell Distribution Width 14.4 % (11.6-14.8); White Blood Cell Count 10.5 X10^3/uL (4.5-11.0)
[2023-11-19 08:51] LABS: Alanine Aminotransferase 31 IU/L (<50); Albumin Globulin Ratio 1.3 (1.0-2.8); Alkaline Phosphatase 76 U/L (38-126); Aspartate Aminotransferase 27 IU/L (17-59); BUN Creatinine Ratio 20.4 (6-22); Bilirubin Total 1.1 mg/dL (0.2-1.3); Blood Urea Nitrogen 19 mg/dL (9-20); Calcium 9.6 mg/dL (8.4-10.2); Carbon Dioxide 23 mmol/L (22-32); Chloride 109 mmol/L (98-107); Cholesterol 130 mg/dL (140-199); Estimated Glomerular Filt Rate > 60 mL/min (>60); Globulin 3.1 g/dL (1.7-4.1); Glucose 97 mg/dL (80-110); HDL Cholesterol 41 mg/dL (40-60); HEMOLYSIS < 15 (0-50); LDL Cholesterol Calculated 76 mg/dL (<100); Potassium 4.1 mmol/L (3.4-5.1); Sodium 140 mmol/L (137-145); Total Protein 7.1 g/dL (6.3-8.2); Triglycerides 67 mg/dL (35-150)
[2023-11-19 09:25] LABS: TSH w/ Reflex to FT4 3.12 uIU/mL (0.47-4.68)
[2023-11-19 09:38] LABS: Vitamin B12 > 1000 pg/mL (239-931)
== END ==
PROVIDERS: PCP Internal Medicine; Referring Provider Internal Medicine; Visit Provider Internal Medicine
DX: E53.8 Deficiency of other specified B group vitamins (principal); E78.2 Mixed hyperlipidemia; I67.9 Cerebrovascular disease, unspecified
CPT/HCPCS: 36415; 80053; 80061; 82607; 84443; 85027

== ENCOUNTER → 2024-07-20 12:36 | Outpatient (CLI) | payer MEDICARE, OTHER, SELFPAY ==
[2024-01-17 11:04] VITALS: BMI 25.8
--- NOTE | 2024-07-20 12:38 | DI.RAD.S_ITS ---
PROCEDURE: XR HIP W PEL IF DONE LT 2V INDICATIONS: left leg pain TECHNIQUE: AP pelvis with lateral view(s) of the left hip(s). COMPARISON: None. FINDINGS: Bones: No fractures or dislocations. Pelvic ring appears intact. No suspicious bony lesions. No significant degenerative change. Soft tissues: The visualized bowel gas pattern is normal. No suspicious soft tissue calcifications. IMPRESSION: No acute bony abnormality. Dictated by: Edmundo Potts M.D. on 07/20/2024 at 15:13 Approved by: Edmundo Potts M.D. on 07/20/2024 at 15:15
== END ==
PROVIDERS: PCP Internal Medicine; Referring Provider Internal Medicine; Visit Provider Internal Medicine
DX: M79.605 Pain in left leg (principal)
CPT/HCPCS: 73502

== ENCOUNTER → 2024-09-12 14:58 | Outpatient (CLI) | payer MEDICARE, OTHER, SELFPAY ==
[2024-01-17 11:04] VITALS: BMI 25.8
[2024-09-12 15:35] LABS: Hemoglobin 13.5 g/dL (13.5-17.5); Mean Corpuscular HGB Conc 33.8 % (30-36); Mean Corpuscular Hemoglobin 31.5 PG (26-34); Mean Corpuscular Volume 93.2 fL (80-100); Platelet Count 238 X10^3/uL (150-400); Red Blood Cell Count 4.29 X10^6/uL (4.5-5.9); Red Cell Distribution Width 14.6 % (11.6-14.8); White Blood Cell Count 8.2 X10^3/uL (4.5-11.0)
[2024-09-12 15:39] LABS: Alanine Aminotransferase 48 IU/L (<50); Albumin 3.8 g/dL (3.5-5.0); Albumin Globulin Ratio 1.4 (1.0-2.8); Alkaline Phosphatase 68 U/L (38-126); Aspartate Aminotransferase 38 IU/L (17-59); BUN Creatinine Ratio 25.3 (6-22); Bilirubin Total 0.5 mg/dL (0.2-1.3); Blood Urea Nitrogen 20 mg/dL (9-20); Calcium 9.4 mg/dL (8.4-10.2); Carbon Dioxide 25 mmol/L (22-32); Chloride 107 mmol/L (98-107); Estimated Glomerular Filt Rate > 60 mL/min (>60); Globulin 2.7 g/dL (1.7-4.1); Glucose 95 mg/dL (80-110); HEMOLYSIS < 15 (0-50); Potassium 4.3 mmol/L (3.4-5.1); Sodium 139 mmol/L (137-145); Total Protein 6.5 g/dL (6.3-8.2)
[2024-09-12 16:09] LABS: TSH w/ Reflex to FT4 1.78 uIU/mL (0.47-4.68)
[2024-09-12 17:22] LABS: Appearance Urine UA CLEAR; Bilirubin Urine UA NEGATIVE (NEGATIVE); Color Urine UA YELLOW; Glucose Urine UA NEGATIVE (Negative); Ketones Urine UA TRACE (NEGATIVE); Leukocyte Esterase Urine UA NEGATIVE (NEGATIVE); Nitrite Urine UA NEGATIVE (Negative); Occult Blood Urine UA NEGATIVE (Negative); Protein Urine UA NEGATIVE (Negative); Specific Gravity Urine UA >=1.030 (1.000-1.035)
[2024-09-12 17:33] LABS: Bacteria Urine Occasional (0-1); Culture Indicated Urine Cult Not Indicated; Mucus Urine 1+ (Negative); RBC Urine 0-1/HPF (0-5/HPF); Squamous Epithelial Cell Urine 0-1 /HPF (0-5/HPF); Urine Volume 10mL (spun); WBC Urine 0-1/HPF (0-5/HPF)
== END ==
PROVIDERS: PCP Internal Medicine; Referring Provider Internal Medicine; Visit Provider Internal Medicine
DX: I67.9 Cerebrovascular disease, unspecified (principal); E78.2 Mixed hyperlipidemia; R39.9 Unspecified symptoms and signs involving the genitourinary system
CPT/HCPCS: 36415; 80053; 81001; 84443; 85027